=== PATIENT | male | born 1970 | race Caucasian/White ===

== ENCOUNTER 2020-03-22 10:20 | Inpatient (IN) | payer SELFPAY ==
[2020-03-22] MEDS ORDERED: PIPERACILLIN/TAZOBACTAM 3.375 GM VIAL IV ONE (11:54)
[2020-03-22] MEDS ORDERED: VANCOMYCIN HCL INJ 1000 MG VIAL IV ONE (11:54)
[2020-03-22] MEDS ORDERED: NORMAL SALINE 1000 ML 1,000 ML IV ONE ×2 (11:54→13:13)
[2020-03-22 12:34] LABS: ABSOLUTE BASOPHILS # (AUTO) 0.1 10^3/uL (0.0-0.2); ABSOLUTE EOSINOPHILS # (AUTO) 0.1 10^3/uL (0.0-0.6); ABSOLUTE LYMPHOCYTES (AUTO) 1.4 10^3/uL (0.5-4.7); ABSOLUTE MONOCYTES (AUTO) 1.6 10^3/uL (0.1-1.4); ABSOLUTE NEUT (AUTO) 12.7 10^3/uL (1.7-8.2); BASOPHILS % (AUTO) 0.6 % (0-2); EOSINOPHILS % (AUTO) 0.4 % (0-6); HEMATOCRIT 49.5 % (37.9-51.0); HEMOGLOBIN 16.6 g/dL (13.5-17.0); MEAN CORPUSCULAR HGB CONC 33.6 g/dL (32.0-36.0); MEAN CORPUSCULAR VOLUME 89 fl (80-97); MONOCYTES % (AUTO) 9.8 % (3-13); PLATELET COUNT 232 10^3/uL (150-450); RED BLOOD COUNT 5.54 10^6/uL (4.35-5.55); RED CELL DISTRIBUTION WIDTH 13.1 % (11.5-14.0); SEGMENTED NEUTROPHILS % (AUTO) 80.2 % (42-78); TOTAL CELLS COUNTED % (AUTO) 100 %; WHITE BLOOD COUNT 15.9 10^3/uL (4.0-10.5)
--- NOTE | 2020-03-22 12:40 | RADIOLOGY REPORT (SQ) ---
EXAM DESCRIPTION: FOOT RIGHT COMPLETE IMAGES COMPLETED DATE/TIME: 03/22/2020 12:22 pm REASON FOR STUDY: stepped on nail/pain COMPARISON: None. NUMBER OF VIEWS: Three views. TECHNIQUE: AP, lateral and oblique radiographic images acquired of the right foot. LIMITATIONS: None. FINDINGS: MINERALIZATION: Normal. BONES: No acute fracture or dislocation. No worrisome bone lesions. JOINTS: No effusions. SOFT TISSUES: There is some air in the soft tissues in the lateral aspect of the foot both on the bud ntar and dorsal aspects. OTHER: No other significant finding. IMPRESSION: Soft tissue air concerning for infection with a gas producing organism. TECHNICAL DOCUMENTATION: JOB ID: [id number] 2010 [employer]- All Rights Reserved Reading location - IP/workstation name: [email or web address]
[2020-03-22] MEDS ORDERED: ACETAMINOPHEN 325 MG TABLET PO ONE (12:48)
[2020-03-22 13:02] LABS: ALBUMIN 3.9 g/dL (3.5-5.0); ALKALINE PHOSPHATASE 85 U/L (38-126); ANION GAP 13 (5-19); ASPARTATE AMINO TRANSFERASE 20 U/L (17-59); BILIRUBIN,DIRECT 0.5 mg/dL (0.0-0.4); BILIRUBIN,TOTAL 1.1 mg/dL (0.2-1.3); BLOOD UREA NITROGEN 14 mg/dL (7-20); CALCIUM 8.9 mg/dL (8.4-10.2); CARBON DIOXIDE 26 mmol/L (22-30); CHLORIDE 91 mmol/L (98-107); GLUCOSE 376 mg/dL (75-110); POTASSIUM 4.8 mmol/L (3.6-5.0); TOTAL PROTEIN 6.7 g/dL (6.3-8.2)
[2020-03-22] MEDS ORDERED: INSULIN REG, HUMAN 100 UNIT/ML 3 ML VIAL (PYX) IV ONE (13:09)
--- NOTE | 2020-03-22 13:21 | ER Document Report ---
ED Extremity Problem, Lower - General Chief Complaint: Puncture Wound to Foot Stated Complaint: LEG PAIN Time Seen by Provider: 03/22/20 11:48 Mode of Arrival: Ambulatory Information source: Patient - HPI Notes: Patient presents complaint of right foot pain. Patient states that he stepped on a nail approximately 4 days ago. Since that time the foot has become more swollen, more red, and more tender. He states the pain is moderate and throbbing. Is constant. Is worse when he puts pressure on it better when he does not. It does radiate up his right foot. He has not appreciated any fevers. No other significant injuries. He states he has been told that he is a "prediabetic" but does not take any medication for this. - Related Data Allergies/Adverse Reactions: No Known Allergies Allergy (Unverified 03/22/20 12:56) Home Medications: ... Past Medical History - General Information source: Patient - Social History Smoking Status: Former Smoker Chew tobacco use (# tins/day): No Frequency of alcohol use: None Drug Abuse: None Family History: Reviewed & Not Pertinent Patient has homicidal ideation: No Review of Systems - Review of Systems Cardiovascular: denies: Chest pain, Palpitations Gastrointestinal: denies: Abdominal pain, Vomiting Genitourinary: denies: Burning, Dysuria -: Yes All other systems reviewed and negative Physical Exam - Vital signs Vitals: Temp Pulse Resp BP Pulse Ox 98.4 F 116 H 20 162/94 H 97 03/22/20 10:26 03/22/20 10:26 03/22/20 10:26 03/22/20 10:26 03/22/20 10:26 Interpretation: Hypertensive, Tachycardic - General General appearance: Appears well, Alert - HEENT Head: Normocephalic, Atraumatic Eyes: Normal Pupils: PERRL - Respiratory Respiratory status: No respiratory distress Chest status: Nontender Breath sounds: Normal Chest palpation: Normal - Cardiovascular Rhythm: Tachycardia Heart sounds: Normal auscultation Murmur: No - Abdominal Inspection: Normal Distension: No distension Bowel sounds: Normal Tenderness: Nontender Organomegaly: No organomegaly - Back Back: Normal, Nontender - Extremities General upper extremity: Normal inspection, Nontender, Normal color, Normal ROM, Normal temperature General lower extremity: Other - Patient's right foot is swollen red tender and indurated. He is got an obvious puncture wound to the lateral aspect of the sole of the foot. Patient has limited range of motion of the midfoot and ankle secondary to pain.. No: Perez's sign - Neurological Neuro grossly intact: Yes Cognition: Normal Orientation: AAOx4 [place] Coma Scale Eye Opening: Spontaneous Isaiah Coma Scale Verbal: Oriented [place] Coma Scale Motor: Obeys Commands [place] Coma Scale Total: 15 Speech: Normal Motor strength normal: LUE, RUE, LLE, RLE Sensory: Normal - Psychological Associated symptoms: Normal affect, Normal mood - Skin Skin Temperature: Warm Skin Moisture: Dry Skin Color: Erythema Course - Re-evaluation Re-evalutation: 03/22/20 13:14 Patient presents after stepping on a nail. He has an obvious infection of the foot with some gas in the tissues. It is unclear if this gas is secondary to the nail penetrating the tissues or if he has a gas-forming organism. Nevertheless he has received tetanus he is also received antibiotics. He is receiving fluids and insulin for his elevated blood sugar as well. I have spoken with the surgeon who is coming to evaluate the patient in the emergency department. - Vital Signs Vital signs: Temp Pulse Resp BP Pulse Ox 98.4 F 116 H 20 162/94 H 97 03/22/20 10:26 03/22/20 10:26 03/22/20 10:26 03/22/20 10:26 03/22/20 10:26 - Laboratory Result Diagrams: 03/22/20 12:15 03/22/20 12:15 Laboratory results interpreted by me: 03/22/20 03/22/20 12:15 12:15 WBC 15.9 H Lymph % (Auto) 9.0 L Absolute Neuts (auto) 12.7 H Absolute Monos (auto) 1.6 H Seg Neutrophils % 80.2 H Sodium 130.2 L Chloride 91 L Glucose 376 H Direct Bilirubin 0.5 H - Diagnostic Test Radiology reviewed: Image reviewed, Reports reviewed Discharge - Discharge Clinical Impression: Hyperglycemia Puncture wound of right foot with complication Qualifiers: Encounter type: initial encounter Qualified Code(s): S91.331A - Puncture wound without foreign body, right foot, initial encounter Condition: Serious Disposition: ADMITTED INPATIENT Admitting Provider: Surgicalist Unit Admitted: OR
[2020-03-22] MEDS ORDERED: FENTANYL CITRATE INJ/PF 100 MCG/2 ML AMPUL ONE (13:50)
[2020-03-22] MEDS ORDERED: MIDAZOLAM 2 MG/2 ML INJ ONE (13:50)
[2020-03-22] MEDS ORDERED: DEXMEDETOMIDINE INJ 80 MCG/20 ML VIAL IV ONE (13:50)
[2020-03-22] MEDS ORDERED: ONDANSETRON HCL INJ/PF 4 MG/2 ML SDV ONE (13:50)
[2020-03-22] MEDS ORDERED: KETAMINE HCL INJ 500 MG/10 ML VIAL ONE (13:50)
[2020-03-22] MEDS ORDERED: PROPOFOL INJ 200 MG/20 ML VIAL IV ONE (13:50)
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
--- NOTE | 2020-03-22 14:29 | RADIOLOGY REPORT (SQ) ---
EXAM DESCRIPTION: CT RT LOWER EXTREMITY WITH IMAGES COMPLETED DATE/TIME: 03/22/2020 2:06 pm REASON FOR STUDY: infection foot/leg COMPARISON: None. TECHNIQUE: Axial imaging performed through the Right foot with reformatted coronal and sagittal imaging windowed for bone and soft tissues. Images saved to PAC S. 3D IMAGING: Were 3D images as MIP, SSD, or volume rendering performed at the work station? No LIMITATIONS: None. FINDINGS: SOFT TISSUES: Gas in the soft tissues between the 4th and 5th metatarsal heads. Gas exten ds from the plantar surface to the dorsal surface. No organized gas fluid collection. BONY STRUCTURES: No active periosteal reaction or abscess. MINERALIZATION: Normal. OTHER: No other significant finding. IMPRESSION: Deep-seated wound infection without evidence of organized abscess or osteomyelitis. Reading location - IP/workstation name: [email or web address]
[2020-03-22] MEDS ORDERED: BUPIVACAINE HCL 0.25 % INJ/PF (2.5 MG/1 ML) 30 ML VIAL ONE (14:41)
[2020-03-22] MEDS ORDERED: LIDOCAINE 1% INJ-PF (10 MG/ML) 30 ML SDV ONE (14:41)
[2020-03-22] MEDS ORDERED: MORPHINE SULFATE 10 MG/ML INJ IV PRN (15:36)
[2020-03-22] MEDS ORDERED: FENTANYL CITRATE INJ/PF 100 MCG/2 ML AMPUL IV PRN ×3 (15:36)
[2020-03-22] MEDS ORDERED: ONDANSETRON HCL INJ/PF 4 MG/2 ML SDV IV PRN ×2 (15:36→15:40)
[2020-03-22] MEDS ORDERED: PROMETHAZINE HCL INJ 25 MG/1 ML VIAL IV PRN ×2 (15:36)
[2020-03-22] MEDS ORDERED: MEPERIDINE HCL/PF INJ 25 MG/1 ML DISP.SYRIN IV PRN (15:36)
[2020-03-22] MEDS ORDERED: DIPHENHYDRAMINE HCL 50 MG/ML VIAL IV PRN (15:36)
[2020-03-22] MEDS ORDERED: OXYCODONE-ACETAMINOPHEN 5-325 MG TABLET PO PRN ×3 (15:36→15:40)
[2020-03-22] MEDS ORDERED: MAG HYDROX/AL HYDROX/SIMETH SUSP 30 ML UDCUP PO PRN ×2 (15:40→17:43)
[2020-03-22] MEDS ORDERED: SILVER SULFADIAZINE 1% CREAM 25 GM ONE (15:44)
[2020-03-22] MEDS ORDERED: NORMAL SALINE 1000 ML 1,000 ML IV PRN ×3 (15:55→17:31)
[2020-03-22] MEDS ORDERED: DEXTROSE 50%-WATER 25 GM/50 ML DISP.SYRIN IV PRN ×2 (15:56)
[2020-03-22] MEDS ORDERED: DEXTROSE 40% GEL 15 GM TUBE PO PRN ×2 (15:56)
[2020-03-22] MEDS ORDERED: GLUCAGON,HUMAN RECOMB 1 MG INJ IM PRN (15:56)
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
--- NOTE | 2020-03-22 16:18 | Operative Report ---
Operative Report DATE OF SURGERY: 03/22/20 PREOPERATIVE DIAGNOSIS: Right foot gas gangrene; right foot sharp injury POSTOPERATIVE DIAGNOSIS: Same OPERATION: Wide debridement right foot with drain placement x2 SURGEON: CRISTINA MORENO ANESTHESIA: LMAC - 40 mL's of 0.5% lidocaine and 0.25% Marcaine TISSUE REMOVED OR ALTERED: Deep soft tissue right foot COMPLICATIONS: None ESTIMATED BLOOD LOSS: 10 mL's INTRAOPERATIVE FINDINGS: Dorsal right foot skin flaps viable, viable foot muscles of the third / fourth tarsa PROCEDURE: The procedure was done in the operating room, the patient was placed in a supine position, the entire right foot and right leg where prepped and draped in usual fashion. A longitudinal line was outlined with a surgical marker on the dorsal lateral aspect in between the fourth and fifth tarsal bones for a length of approximately 10 cm. A segment of skin was excised along the skin markings with a #15 blade and sent for culture. Serous fluid was obtained. This was sent for aerobic anaerobic culture and Gram stain. After this, a finger was inserted inside the wound and the medial and lateral flaps of the dorsal wound were elevated. The underlying tissue appeared to be pink, viable, without odor. The muscle fascia overlying the third and fourth tarsal bones was longitudinally opened with Bovie and the space was entered hemostat. No fluid was obtained after this. The musculature of the foot appeared to be pink and viable. The nail entry point was identified on the plantar surface and a core of tissue measuring 1/2 inch in diameter was excised around the entry point of the nail, ended deep in the foot, and sent for culture. A hemostat was inserted through this monitor opening and advanced to main dorsal foot opening. 1/2 inch Queta drain was threaded through this path and tied to itself; a second Queta drain was inserted through the plantar surface opening and was pointed more proximally on the dorsal aspect of the foot. Following this, the abscess cavity was irrigated with 3 L of normal saline via jet lavage. Local bleeders were cauterized. The [place] drain loop ends where tied to themselves with a 2-0 silk suture. The abscess cavity was packed with 1 inch inch Geovanny strip soaked in Silvadene; the plantar surface opening was packed similarly. Both packed areas were covered with dry 4 x 4's, ABDs, Kerlix roll, and Idris bandage. The patient tolerated procedure well and transferred to the recovery room in satisf actory conditions.
[2020-03-22] MEDS ORDERED: ACETAMINOPHEN 325 MG TABLET PO PRN ×2 (17:29→17:31)
[2020-03-22] MEDS: CLINDAMYCIN 900 MG/D5W RTU 900 MG/50 ML RTUPB IV SCH ×2 (17:43→20:02)
[2020-03-22] MEDS: FAMOTIDINE INJ/PF 20 MG/2 ML SDV IV SCH ×2 (17:48→21:15)
[2020-03-22] MEDS: OXYCODONE HCL IR 5 MG TABLET PO PRN (18:11)
[2020-03-22] MEDS: INSULIN LISPRO 100 UNIT/ML 3 ML VIAL SUBCUT SCH ×2 (18:28→22:33)
[2020-03-22] MEDS: ACETAMINOPHEN 1,000 MG/100 ML RTUPB IV SCH (18:28)
[2020-03-22] MEDS: PIPERACILLIN SODIUM/TAZOBACTAM 4.5 GM in NORMAL SALINE 100 ML IV SCH (18:44)
[2020-03-22] MEDS: VANCOMYCIN HCL 1,500 MG in DEXTROSE 5%-WATER 250 ML IV SCH (21:20)
[2020-03-22] MEDS ORDERED: FAMOTIDINE 20 MG TABLET PO SCH (22:00)
[2020-03-22] MEDS ORDERED: CEFEPIME 2 GM/D5W RTU 2 GM/50 ML RTUPB IV SCH (22:00)
[2020-03-22] MEDS: MORPHINE SULFATE 10 MG/ML INJ IV PRN (23:01)
[2020-03-23] MEDS: ACETAMINOPHEN 1,000 MG/100 ML RTUPB IV SCH ×3 (00:49→12:19)
[2020-03-23] MEDS ORDERED: VANCOMYCIN HCL INJ 500 MG VIAL IV ONE (01:00)
[2020-03-23] MEDS: CLINDAMYCIN 900 MG/D5W RTU 900 MG/50 ML RTUPB IV SCH ×3 (02:14→18:36)
[2020-03-23] MEDS: MORPHINE SULFATE 10 MG/ML INJ IV PRN ×2 (02:20→22:33)
[2020-03-23] MEDS: PIPERACILLIN SODIUM/TAZOBACTAM 4.5 GM in NORMAL SALINE 100 ML IV SCH ×5 (02:39→17:17)
[2020-03-23 05:12] LABS: ABSOLUTE EOSINOPHILS # (AUTO) 0.1 10^3/uL (0.0-0.6); ABSOLUTE LYMPHOCYTES (AUTO) 2.3 10^3/uL (0.5-4.7); ABSOLUTE MONOCYTES (AUTO) 1.9 10^3/uL (0.1-1.4); ABSOLUTE NEUT (AUTO) 10.9 10^3/uL (1.7-8.2); BASOPHILS % (AUTO) 0.3 % (0-2); EOSINOPHILS % (AUTO) 0.6 % (0-6); HEMATOCRIT 43.8 % (37.9-51.0); HEMOGLOBIN 14.9 g/dL (13.5-17.0); LYMPHOCYTES % (AUTO) 15.3 % (13-45); MEAN CORPUSCULAR VOLUME 88 fl (80-97); MONOCYTES % (AUTO) 12.4 % (3-13); PLATELET COUNT 219 10^3/uL (150-450); RED BLOOD COUNT 4.95 10^6/uL (4.35-5.55); RED CELL DISTRIBUTION WIDTH 12.8 % (11.5-14.0); SEGMENTED NEUTROPHILS % (AUTO) 71.4 % (42-78); TOTAL CELLS COUNTED % (AUTO) 100 %; WHITE BLOOD COUNT 15.2 10^3/uL (4.0-10.5)
[2020-03-23 05:16] LABS: INTERNATIONAL RATION (INR) 1.08; PROTHROMBIN TIME 14.2 SEC (11.4-15.4)
[2020-03-23 05:17] LABS: PARTIAL THROMBOPLASTIN TIME 29.3 SEC (23.5-35.8)
[2020-03-23 05:44] LABS: CHOLESTEROL 169.09 mg/dL (0-200); TRIGLYCERIDES 114 mg/dL (<150)
[2020-03-23 05:54] LABS: DIRECT LDL 113 mg/dL (<100)
[2020-03-23 06:04] LABS: ANION GAP 12 (5-19); BLOOD UREA NITROGEN 9 mg/dL (7-20); CALCIUM 8.4 mg/dL (8.4-10.2); CARBON DIOXIDE 24 mmol/L (22-30); CHLORIDE 96 mmol/L (98-107); CREATINE KINASE 46 U/L (55-170); GLUCOSE 222 mg/dL (75-110); POTASSIUM 3.9 mmol/L (3.6-5.0)
[2020-03-23] MEDS: VANCOMYCIN HCL 1,500 MG in DEXTROSE 5%-WATER 250 ML IV SCH ×3 (07:48→22:25)
--- NOTE | 2020-03-23 08:23 | PDOC PROGRESS REPORT ---
Subjective Progress Note for:: 03/23/20 Subjective:: Patient comfortable, denies right foot pain, reports to be able to wiggle all right foot toes Reason For Visit: PUNCTURE WOUND OF RIGHT FOOT WITH COMPLICATION Physical Exam Vital Signs: Temp Pulse Resp BP Pulse Ox 99.2 F 95 18 111/75 93 03/23/20 07:32 03/23/20 07:32 03/23/20 07:32 03/23/20 07:32 03/23/20 07:32 Intake & Output 03/22/20 03/23/20 03/24/20 06:59 06:59 06:59 Intake Total 2400 200 Output Total 1510 Balance 890 200 Weight 130.1 kg General appearance: PRESENT: no acute distress, obese Extremities exam: PRESENT: other - Right foot = covered with dressings clean, dry, and intact; no odor Results Laboratory Results: 03/23/20 04:37 03/23/20 04:37 03/22/20 03/22/20 03/22/20 12:15 12:15 19:30 WBC 15.9 H RBC 5.54 Hgb 16.6 Hct 49.5 MCV 89 MCH 30.0 MCHC 33.6 RDW 13.1 Plt Count 232 Seg Neutrophils % 80.2 H Sodium 130.2 L Potassium 4.8 Chloride 91 L Carbon Dioxide 26 Anion Gap 13 BUN 14 Creatinine 0.65 Est GFR ( Amer) > 60 Glucose 376 H Lactic Acid 1.1 Calcium 8.9 Magnesium Total Bilirubin 1.1 AST 20 Alkaline Phosphatase 85 Total Protein 6.7 Albumin 3.9 Triglycerides Cholesterol LDL Cholesterol Direct VLDL Cholesterol HDL Cholesterol 03/23/20 03/23/20 04:37 04:37 WBC 15.2 H RBC 4.95 Hgb 14.9 Hct 43.8 MCV 88 MCH 30.0 MCHC 34.0 RDW 12.8 Plt Count 219 Seg Neutrophils % 71.4 Sodium 131.6 L Potassium 3.9 Chloride 96 L Carbon Dioxide 24 Anion Gap 12 BUN 9 Creatinine 0.51 L Est GFR ( Amer) > 60 Glucose 222 H Lactic Acid Calcium 8.4 Magnesium 2.0 Total Bilirubin AST Alkaline Phosphatase Total Protein Albumin Triglycerides 114 Cholesterol 169.09 LDL Cholesterol Direct 113 H VLDL Cholesterol 23.0 HDL Cholesterol 38 L 03/23/20 04:37 Creatine Kinase 46 L Impressions: Foot X-Ray 03/22/20 11:54 IMPRESSION: Soft tissue air concerning for infection with a gas producing organism. Lower Extremity CT 03/22/20 13:26 IMPRESSION: Deep-seated wound infection without evidence of organized abscess or osteomyelitis. Assessment & Plan - Diagnosis (1) Gas gangrene Is this a current diagnosis for this admission?: Yes (2) Hyperglycemia Is this a current diagnosis for this admission?: Yes (3) Puncture wound of right foot with complication Qualifiers: Encounter type: initial encounter Qualified Code(s): S91.331A - Puncture wound without foreign body, right foot, initial encounter - Time Anticipated Discharge Disposition: Home, Self Care Anticipated Discharge Timeframe: When clinically ready - Plan Summary Plan Summary: Assessment: Postoperative day #1 following debridement with drain placement to the right foot Gas gangrene right foot following puncture wound to the plantar surface by days prior to presentation to the hospital Persistent leukocytosis 15,000 Low-grade temperature 99.2. Cultures pending Right foot exam = dressing clean dry intact, patient able to wiggle all toes Plan: Plan right foot wound second look exploration with possible debridement today Seizure, risks, benefits, complications, including infection, bleeding, some motor or sensory function, loss of limb, is been discussed with the patient, he understands all the above and desires to proceed The possibility of losing part, most, or the entire right foot has been discussed with the patient; he understands the issue.
[2020-03-23] MEDS: INSULIN LISPRO 100 UNIT/ML 3 ML VIAL SUBCUT SCH ×4 (08:28→22:24)
[2020-03-23] MEDS ORDERED: FENTANYL CITRATE INJ/PF 100 MCG/2 ML AMPUL ONE ×2 (09:13→11:00)
[2020-03-23] MEDS ORDERED: MIDAZOLAM 2 MG/2 ML INJ ONE (09:14)
[2020-03-23] MEDS ORDERED: PROPOFOL INJ 200 MG/20 ML VIAL IV ONE ×2 (09:14→10:56)
[2020-03-23] MEDS ORDERED: ONDANSETRON HCL INJ/PF 4 MG/2 ML SDV ONE (09:16)
[2020-03-23] MEDS ORDERED: SILVER SULFADIAZINE 1% CREAM 25 GM ONE (09:29)
[2020-03-23] MEDS ORDERED: ENOXAPARIN SODIUM INJ 40 MG/0.4 ML DISP.SYRIN SUBCUT SCH (10:00)
[2020-03-23] MEDS ORDERED: MEPERIDINE HCL/PF INJ 25 MG/1 ML DISP.SYRIN IV PRN (10:22)
[2020-03-23] MEDS ORDERED: FENTANYL CITRATE INJ/PF 100 MCG/2 ML AMPUL IV PRN ×2 (10:22)
[2020-03-23] MEDS ORDERED: DIPHENHYDRAMINE HCL 50 MG/ML VIAL IV PRN (10:22)
[2020-03-23] MEDS ORDERED: PROMETHAZINE HCL INJ 25 MG/1 ML VIAL IV PRN (10:22)
[2020-03-23] MEDS ORDERED: MORPHINE SULFATE 10 MG/ML INJ IV PRN (10:22)
[2020-03-23] MEDS: FENTANYL CITRATE INJ/PF 100 MCG/2 ML AMPUL IV PRN ×2 (11:00→11:05)
--- NOTE | 2020-03-23 11:17 | EKG REPORT ---
SEVERITY:- ABNORMAL ECG - SINUS TACHYCARDIA RBBB AND LPFB : Confirmed by: Brisa Del Toro MD 23-Mar-2020 11:16:02
--- NOTE | 2020-03-23 11:40 | Operative Report ---
Operative Report DATE OF SURGERY: 03/23/20 PREOPERATIVE DIAGNOSIS: Status post penetrating trauma right foot; gas gangrene right foot; status post debridement of skin and subcutaneous tissue right foot POSTOPERATIVE DIAGNOSIS: Same; ischemic fourth and fifth lumbrical muscles right foot; viable third lumbrical muscle right foot OPERATION: Full-thickness debridement of right foot dorsal skin; debridement of fascia and third and fourth lumbrical muscles right foot; placement of wound VAC SURGEON: CRISTINA MORENO ANESTHESIA: LMAC TISSUE REMOVED OR ALTERED: Right foot dorsal skin; specimens of third fourth and fifth lumbrical muscles right foot; muscle fascia right foot dorsal aspect ESTIMATED BLOOD LOSS: 10 mL INTRAOPERATIVE FINDINGS: Necrosis of wound skin flaps circumferentially to the wound; necrosis of muscle fascia dorsal aspect right foot; viable third lumbrical muscle belly right foot; necrosis fourth and fifth lumbrical muscle belly PROCEDURE: The procedure was done in the operating room, the patient was placed in supine position, IV sedation by LMAC provided by the assistant professor of art, the right foot and leg were prepped draped in usual fashion. The [place] drain placed yesterday were removed. On initial inspection, the dorsal aspect of foot appear covered by necrotic subcutaneous fascia as well as the fourth and fifth lumbrical muscles appear to be dusky. Half an inch inch to 1 inch of the skin edges of the circular shaped surgical wound created during the previous surgery was dusky. This skin was sharply excised until good bleeding tissue was obtained. Further inspection of the wound revealed necrosis of the underlying fascia which was sharply debrided throughout the entire surgical field which now measures approximately 12 x 10 cm, located on the dorsal lateral aspect of the foot, overlying the third through fifth metatarsal bones. After this debridement, the underlying lumbri emily muscles were inspected: the fourth and fifth lumbrical muscles were dusky; these was debrided and specimens were sent to pathology test muscle viability. Examination of the third lumbrical muscle revealed a pink muscle belly and a sample was sent to pathology as well. This was found to be viable. The muscle specimens of the fourth and fifth lumbrical muscles were found to be necrotic by the pathologist. Local bleeders were cauterized, jet lavage with 3 L normal saline of the surgical field was performed. After this, a laureano wound VAC sponge was cut to size, placed in the surgical field and followed by a large Tegaderm was placed on top of it to create a seal. The Tegaderm on top of the sponge was open and the vacuum cup was placed on top of the Tegaderm and connected to the wound VAC machine. Good vacuum seal was obtained with use 125 mmHg negative pressure. The wound VAC tubing was secured to the skin with an Idris bandage. The patient
[2020-03-23] MEDS: FAMOTIDINE INJ/PF 20 MG/2 ML SDV IV SCH ×2 (12:19→22:24)
[2020-03-23] MEDS: DOCUSATE SODIUM 100 MG CAPSULE PO SCH (12:20)
--- NOTE | 2020-03-23 14:55 | PDOC PROGRESS REPORT ---
Subjective Progress Note for:: 03/23/20 Subjective:: Patient denies any fever or chills. Still having throbbing pain in his right leg. Also has a headache. Patient states that he would like to avoid being on insulin and has declined insulin therapy. Reason For Visit: PUNCTURE WOUND OF RIGHT FOOT WITH COMPLICATION Physical Exam Vital Signs: Temp Pulse Resp BP Pulse Ox 98.6 F 97 16 152/75 H 96 03/23/20 14:00 03/23/20 14:00 03/23/20 14:00 03/23/20 14:00 03/23/20 14:00 Intake & Output 03/22/20 03/23/20 03/24/20 06:59 06:59 06:59 Intake Total 2400 4050 Output Total 1510 5 Balance 890 4045 Weight 130.1 kg General appearance: PRESENT: no acute distress, cooperative Neck exam: ABSENT: JVD Respiratory exam: PRESENT: clear to auscultation so, symmetrical, unlabored. ABSENT: tachypnea, wheezes Cardiovascular exam: PRESENT: RRR, +S1, +S2. ABSENT: tachycardia GI/Abdominal exam: PRESENT: soft. ABSENT: rebound, rigid, tenderness Extremities exam: PRESENT: other - Right lower extremity in Idris wraps and dressing with connected to wound VAC. Significant swelling involving the right foot. Neurological exam: PRESENT: alert, awake, oriented to person, oriented to place, oriented to time Results Laboratory Results: 03/23/20 04:37 03/23/20 04:37 03/22/20 03/23/20 03/23/20 19:30 04:37 04:37 WBC 15.2 H RBC 4.95 Hgb 14.9 Hct 43.8 MCV 88 MCH 30.0 MCHC 34.0 RDW 12.8 Plt Count 219 Seg Neutrophils % 71.4 Sodium 131.6 L Potassium 3.9 Chloride 96 L Carbon Dioxide 24 Anion Gap 12 BUN 9 Creatinine 0.51 L Est GFR ( Amer) > 60 Glucose 222 H Lactic Acid 1.1 Calcium 8.4 Magnesium 2.0 Triglycerides 114 Cholesterol 169.09 LDL Cholesterol Direct 113 H VLDL Cholesterol 23.0 HDL Cholesterol 38 L 03/23/20 04:37 Creatine Kinase 46 L Impressions: Foot X-Ray 03/22/20 11:54 IMPRESSION: Soft tissue air concerning for infection with a gas producing organism. Lower Extremity CT 03/22/20 13:26 IMPRESSION: Deep-seated wound infection without evidence of organized abscess or osteomyelitis. Assessment and Plan - Diagnosis (1) Necrotizing fasciitis of lower leg Is this a current diagnosis for this admission?: Yes Plan: Secondary to trauma from stepping on a nail Taken to the OR again today for further debridement and placement of wound VAC. Deep wound cultures are growing gram-negative luis daniel Discussed case with Dr. Locke who recommends triple antibiotic therapy for now with vancomycin Zosyn and clindamycin Pain control with IV and p.o. meds as needed Plan for OR again tomorrow morning (2) Hyperglycemia due to diabetes mellitus Is this a current diagnosis for this admission?: Yes Plan: New onset diabetes mellitus likely type II. Hemoglobin A1c is 13. I discussed with patient that he needs to be on insulin for proper control of diabetes as his hemoglobin A1c is way above 9.5. However patient declines insulin. As such, I will put patient on metformin and glimepiride. Continue Accu-Cheks and sliding scale. Counseled by superintendent automotive (3) Elevated blood pressure reading Is this a current diagnosis for this admission?: Yes Plan: We will monitor blood pressure closely. Denies history of hypertension, it could be due to pain. Pain control as well. (4) Morbid obesity with BMI of 40.0-44.9, adult Is this a current diagnosis for this admission?: Yes Plan: Dietitian consulted for weight reduction education. Dyslipidemia-we will start patient on atorvastatin especially given calculated ASCVD 10-year risk of 7.6% and diabetes - Time Time Spent with patient: 15-24 minutes Anticipated Discharge Disposition: Home, Self Care Anticipated Discharge Timeframe: 4-5 days
[2020-03-23] MEDS: METFORMIN HCL 500 MG TABLET PO SCH (17:21)
[2020-03-23] MEDS ORDERED: ACETAMINOPHEN 1,000 MG/100 ML RTUPB IV PRN (17:39)
[2020-03-23] MEDS: GLIMEPIRIDE 1 MG TABLET PO SCH (18:28)
[2020-03-23] MEDS ORDERED: ENOXAPARIN SODIUM INJ 40 MG/0.4 ML DISP.SYRIN SUBCUT ONE (22:00)
[2020-03-23] MEDS: ATORVASTATIN CALCIUM 40 MG TABLET PO SCH (22:24)
[2020-03-23 22:49] LABS: VANCOMYCIN,TROUGH 12.9 ug/mL (5.0-20.0)
[2020-03-24] MEDS: PIPERACILLIN SODIUM/TAZOBACTAM 4.5 GM in NORMAL SALINE 100 ML IV SCH ×4 (00:33→17:29)
[2020-03-24] MEDS: CLINDAMYCIN 900 MG/D5W RTU 900 MG/50 ML RTUPB IV SCH ×2 (03:34→11:54)
[2020-03-24 05:52] LABS: ABSOLUTE EOSINOPHILS # (AUTO) 0.1 10^3/uL (0.0-0.6); ABSOLUTE LYMPHOCYTES (AUTO) 1.7 10^3/uL (0.5-4.7); ABSOLUTE MONOCYTES (AUTO) 1.7 10^3/uL (0.1-1.4); ABSOLUTE NEUT (AUTO) 7.6 10^3/uL (1.7-8.2); BASOPHILS % (AUTO) 0.4 % (0-2); EOSINOPHILS % (AUTO) 1.2 % (0-6); HEMATOCRIT 40.8 % (37.9-51.0); HEMOGLOBIN 13.9 g/dL (13.5-17.0); LYMPHOCYTES % (AUTO) 15.3 % (13-45); MEAN CORPUSCULAR VOLUME 88 fl (80-97); MONOCYTES % (AUTO) 15.1 % (3-13); PLATELET COUNT 209 10^3/uL (150-450); RED BLOOD COUNT 4.62 10^6/uL (4.35-5.55); RED CELL DISTRIBUTION WIDTH 12.9 % (11.5-14.0); TOTAL CELLS COUNTED % (AUTO) 100 %; WHITE BLOOD COUNT 11.2 10^3/uL (4.0-10.5)
[2020-03-24] MEDS: MORPHINE SULFATE 10 MG/ML INJ IV PRN ×5 (05:59→22:26)
[2020-03-24 06:05] LABS: ANION GAP 12 (5-19); BLOOD UREA NITROGEN 12 mg/dL (7-20); CALCIUM 8.4 mg/dL (8.4-10.2); CARBON DIOXIDE 24 mmol/L (22-30); CHLORIDE 98 mmol/L (98-107); GLUCOSE 244 mg/dL (75-110); POTASSIUM 3.9 mmol/L (3.6-5.0)
[2020-03-24] MEDS: VANCOMYCIN HCL 1,500 MG in DEXTROSE 5%-WATER 250 ML IV SCH ×3 (08:03→22:38)
[2020-03-24] MEDS: INSULIN LISPRO 100 UNIT/ML 3 ML VIAL SUBCUT SCH ×4 (08:04→22:46)
[2020-03-24] MEDS ORDERED: FAMOTIDINE INJ/PF 20 MG/2 ML SDV IV ONE (08:45)
--- NOTE | 2020-03-24 10:32 | PDOC PROGRESS REPORT ---
Subjective Progress Note for:: 03/24/20 Reason For Visit: PUNCTURE WOUND OF RIGHT FOOT WITH COMPLICATION Patient having more pain, redness to the right foot. Remains on quadruple antibiotics, wound VAC therapy. Physical Exam Vital Signs: Temp Pulse Resp BP Pulse Ox 98.2 F 88 16 143/81 H 97 03/24/20 08:46 03/24/20 07:51 03/24/20 07:51 03/24/20 07:51 03/24/20 07:51 Intake & Output 03/23/20 03/24/20 03/25/20 06:59 06:59 06:59 Intake Total 2400 4900 Output Total 1510 1730 Balance 890 3170 Weight 130.1 kg 138 kg General appearance: PRESENT: mild distress Musculoskeletal exam: PRESENT: other - Right foot examined. There is cellulitis extending beyond the wound VAC sponge. Sponge removed. The open wound is fairly clean with some granulation tissue no foul smell or pus, however the skin, and immediate subcutaneous tissue remains edematous and erythematous and a circumferential fashion around the open wound. There is no extension to the ankle. Results Laboratory Results: 03/24/20 05:37 03/24/20 05:37 03/24/20 03/24/20 05:37 05:37 WBC 11.2 H RBC 4.62 Hgb 13.9 Hct 40.8 MCV 88 MCH 30.0 MCHC 34.0 RDW 12.9 Plt Count 209 Seg Neutrophils % 68.0 Sodium 133.7 L Potassium 3.9 Chloride 98 Carbon Dioxide 24 Anion Gap 12 BUN 12 Creatinine 0.82 Est GFR ( Amer) > 60 Glucose 244 H Calcium 8.4 Magnesium 2.0 03/23/20 04:37 Creatine Kinase 46 L Impressions: Foot X-Ray 03/22/20 11:54 IMPRESSION: Soft tissue air concerning for infection with a gas producing organism. Lower Extremity CT 03/22/20 13:26 IMPRESSION: Deep-seated wound infection without evidence of organized abscess or osteomyelitis. Assessment & Plan - Diagnosis (1) Puncture wound of right foot with complication Qualifiers: Encounter type: initial encounter Qualified Code(s): S91.331A - Puncture wound without foreign body, right foot, initial encounter Plan: Impression: Patient is postoperative day 2, 1 following serial debridements of the right foot for puncture wound in obese diabetic; complex wound growing Enterobacter cloaca on appropriate intravenous antibiotics; despite aggressive debridement, leg elevation intravenous antibiotics, patient has persisting infection as manifested by new erythema around the debridement site. Recommendations: 1. Discussed with patient, nursing staff the condition of the foot, that is incomplete resolution of sepsis despite very aggressive preventions over the last 48 hours. I would suggest holding off on further debridement this morning as the open wound is decompressed without pus, foul smell, and the bottom of the foot is not draining. 2. Nonetheless I am concerned this foot is far from recoverable and I described that to the patient. I told him we would continue local wound care, IV antibiotics and leg elevation today. I will reinspect the wound in 12 to 24 hours, and if no better, suggest we proceed with below the knee amputation 3. I discussed the above with nursing staff, and Dr. BOX - Time Time Spent: 30 to 50 Minutes Critical Time spent with patient: 15-24 minutes Medications reviewed and adjusted accordingly: Yes Anticipated Discharge Disposition: Home, Self Care Anticipated Discharge Timeframe: To be determined
[2020-03-24] MEDS ORDERED: DEXTROSE 50%-WATER 25 GM/50 ML DISP.SYRIN IV PRN ×2 (10:33)
[2020-03-24] MEDS ORDERED: DEXTROSE 40% GEL 15 GM TUBE PO PRN ×2 (10:33)
[2020-03-24] MEDS ORDERED: GLUCAGON,HUMAN RECOMB 1 MG INJ SUBCUT PRN (10:33)
[2020-03-24] MEDS: METFORMIN HCL 500 MG TABLET PO SCH ×2 (11:48→15:57)
[2020-03-24] MEDS: GLIMEPIRIDE 1 MG TABLET PO SCH (11:49)
[2020-03-24] MEDS: DOCUSATE SODIUM 100 MG CAPSULE PO SCH ×2 (11:50→17:29)
[2020-03-24] MEDS: OXYCODONE HCL IR 5 MG TABLET PO PRN (15:57)
--- NOTE | 2020-03-24 16:53 | PDOC PROGRESS REPORT ---
Subjective Progress Note for:: 03/24/20 Subjective:: Patient complains of some throbbing foot pain today. Otherwise in good spirits. Reason For Visit: PUNCTURE WOUND OF RIGHT FOOT WITH COMPLICATION Physical Exam Vital Signs: Temp Pulse Resp BP Pulse Ox 97.9 F 83 18 135/85 H 98 03/24/20 15:29 03/24/20 15:29 03/24/20 15:29 03/24/20 15:29 03/24/20 15:29 Intake & Output 03/23/20 03/24/20 03/25/20 06:59 06:59 06:59 Intake Total 2400 5050 650 Output Total 1510 1730 Balance 890 3320 650 Weight 130.1 kg 138 kg 138 kg General appearance: PRESENT: no acute distress, cooperative Neck exam: ABSENT: JVD Respiratory exam: PRESENT: symmetrical, unlabored. ABSENT: tachypnea, wheezes Cardiovascular exam: PRESENT: +S1, +S2 GI/Abdominal exam: PRESENT: soft. ABSENT: tenderness Extremities exam: PRESENT: other - Swelling of right foot. Drain and wound VAC Neurological exam: PRESENT: alert, awake, oriented to person, oriented to place, oriented to time Results Laboratory Results: 03/24/20 05:37 03/24/20 05:37 03/24/20 03/24/20 05:37 05:37 WBC 11.2 H RBC 4.62 Hgb 13.9 Hct 40.8 MCV 88 MCH 30.0 MCHC 34.0 RDW 12.9 Plt Count 209 Seg Neutrophils % 68.0 Sodium 133.7 L Potassium 3.9 Chloride 98 Carbon Dioxide 24 Anion Gap 12 BUN 12 Creatinine 0.82 Est GFR ( Amer) > 60 Glucose 244 H Calcium 8.4 Magnesium 2.0 03/23/20 04:37 Creatine Kinase 46 L Impressions: Foot X-Ray 03/22/20 11:54 IMPRESSION: Soft tissue air concerning for infection with a gas producing organism. Lower Extremity CT 03/22/20 13:26 IMPRESSION: Deep-seated wound infection without evidence of organized abscess or osteomyelitis. Assessment and Plan - Diagnosis (1) Necrotizing fasciitis of lower leg Is this a current diagnosis for this admission?: Yes Plan: Secondary to trauma from stepping on a nail Taken to the OR again today for further debridement and placement of wound VAC. Deep wound cultures are growing gram-negative luis daniel, Enterobacter bacillus species We will discontinue clindamycin at this point as he has been on this for over 48 hours now. Continue vancomycin and Zosyn. We will continue to follow cultures to full susceptibility report Pain control with IV and p.o. meds as needed Did not require OR today but possible plan for OR again tomorrow morning (2) Hyperglycemia due to diabetes mellitus Is this a current diagnosis for this admission?: Yes Plan: New onset diabetes mellitus likely type II. Hemoglobin A1c is 13. I discussed with patient that he needs to be on insulin for proper control of diabetes as his hemoglobin A1c is way above 9.5. However patient declines insulin. As such, I will put patient on metformin and glimepiride. Continue Accu-Cheks and sliding scale. Counseled by firer watertender (3) Elevated blood pressure reading Is this a current diagnosis for this admission?: Yes (4) Morbid obesity with BMI of 40.0-44.9, adult Is this a current diagnosis for this admission?: Yes - Time Time Spent with patient: Less than 15 minutes Anticipated Discharge Disposition: Home, Self Care Anticipated Discharge Timeframe: undetermined
[2020-03-24] MEDS: NORMAL SALINE 1000 ML 1,000 ML IV PRN (17:29)
[2020-03-24] MEDS: ATORVASTATIN CALCIUM 40 MG TABLET PO SCH (22:39)
[2020-03-24] MEDS: FAMOTIDINE INJ/PF 20 MG/2 ML SDV IV SCH (22:45)
[2020-03-25] MEDS: PIPERACILLIN SODIUM/TAZOBACTAM 4.5 GM in NORMAL SALINE 100 ML IV SCH ×5 (00:28→18:05)
[2020-03-25] MEDS: NORMAL SALINE 1000 ML 1,000 ML IV PRN ×2 (03:38→22:29)
[2020-03-25] MEDS: VANCOMYCIN HCL 1,500 MG in DEXTROSE 5%-WATER 250 ML IV SCH ×3 (05:02→22:27)
[2020-03-25] MEDS: ONDANSETRON HCL INJ/PF 4 MG/2 ML SDV IV PRN ×2 (05:12→15:40)
[2020-03-25] MEDS: MORPHINE SULFATE 10 MG/ML INJ IV PRN ×2 (05:19→12:42)
[2020-03-25 06:04] LABS: ABSOLUTE EOSINOPHILS # (AUTO) 0.2 10^3/uL (0.0-0.6); ABSOLUTE LYMPHOCYTES (AUTO) 1.4 10^3/uL (0.5-4.7); ABSOLUTE MONOCYTES (AUTO) 1.5 10^3/uL (0.1-1.4); ABSOLUTE NEUT (AUTO) 6.3 10^3/uL (1.7-8.2); BASOPHILS % (AUTO) 0.5 % (0-2); EOSINOPHILS % (AUTO) 2.3 % (0-6); HEMATOCRIT 39.1 % (37.9-51.0); HEMOGLOBIN 13.5 g/dL (13.5-17.0); LYMPHOCYTES % (AUTO) 15.3 % (13-45); MEAN CORPUSCULAR HEMOGLOBIN 30.2 pg (27.0-33.4); MEAN CORPUSCULAR HGB CONC 34.4 g/dL (32.0-36.0); MEAN CORPUSCULAR VOLUME 88 fl (80-97); MONOCYTES % (AUTO) 15.6 % (3-13); PLATELET COUNT 235 10^3/uL (150-450); RED BLOOD COUNT 4.46 10^6/uL (4.35-5.55); RED CELL DISTRIBUTION WIDTH 12.6 % (11.5-14.0); SEGMENTED NEUTROPHILS % (AUTO) 66.3 % (42-78); TOTAL CELLS COUNTED % (AUTO) 100 %; WHITE BLOOD COUNT 9.5 10^3/uL (4.0-10.5)
[2020-03-25 06:27] LABS: ANION GAP 9 (5-19); BLOOD UREA NITROGEN 14 mg/dL (7-20); CALCIUM 8.5 mg/dL (8.4-10.2); CARBON DIOXIDE 25 mmol/L (22-30); CHLORIDE 101 mmol/L (98-107); GLUCOSE 232 mg/dL (75-110); POTASSIUM 3.9 mmol/L (3.6-5.0)
[2020-03-25] MEDS: INSULIN LISPRO 100 UNIT/ML 3 ML VIAL SUBCUT SCH ×4 (08:21→22:30)
[2020-03-25] MEDS: GLIMEPIRIDE 1 MG TABLET PO SCH (08:55)
[2020-03-25] MEDS: METFORMIN HCL 500 MG TABLET PO SCH ×2 (08:55→18:04)
[2020-03-25] MEDS ORDERED: LIDOCAINE 1% INJ-PF (10 MG/ML) 30 ML SDV ONE (09:19)
[2020-03-25] MEDS ORDERED: PROPOFOL INJ 200 MG/20 ML VIAL IV ONE (09:30)
[2020-03-25] MEDS ORDERED: MIDAZOLAM 2 MG/2 ML INJ ONE ×3 (09:30→16:48)
[2020-03-25] MEDS ORDERED: ONDANSETRON HCL INJ/PF 4 MG/2 ML SDV ONE (09:30)
[2020-03-25] MEDS ORDERED: FENTANYL CITRATE INJ/PF 100 MCG/2 ML AMPUL ONE ×2 (09:30→16:49)
[2020-03-25] MEDS ORDERED: PROMETHAZINE HCL INJ 25 MG/1 ML VIAL IV PRN ×2 (10:32)
[2020-03-25] MEDS ORDERED: MORPHINE SULFATE 10 MG/ML INJ IV PRN (10:32)
[2020-03-25] MEDS ORDERED: MEPERIDINE HCL/PF INJ 25 MG/1 ML DISP.SYRIN IV PRN (10:32)
[2020-03-25] MEDS ORDERED: ONDANSETRON HCL INJ/PF 4 MG/2 ML SDV IV PRN (10:32)
[2020-03-25] MEDS ORDERED: DIPHENHYDRAMINE HCL 50 MG/ML VIAL IV PRN (10:32)
[2020-03-25] MEDS ORDERED: FENTANYL CITRATE INJ/PF 100 MCG/2 ML AMPUL IV PRN ×3 (10:32)
[2020-03-25] MEDS ORDERED: OXYCODONE-ACETAMINOPHEN 5-325 MG TABLET PO PRN ×2 (10:32)
--- NOTE | 2020-03-25 11:10 | PDOC PROGRESS REPORT ---
Subjective Progress Note for:: 03/25/20 Subjective:: Patient still complaining of pain right foot, worse, with inability to dorsiflex at the ankle. Reason For Visit: PUNCTURE WOUND OF RIGHT FOOT WITH COMPLICATION Open right foot wound Patient was examined approximately 9:00 AM March 25 Physical Exam Vital Signs: Temp Pulse Resp BP Pulse Ox 97.9 F 77 18 132/57 H 96 03/25/20 09:10 03/25/20 09:10 03/25/20 09:10 03/25/20 09:10 03/25/20 09:10 Intake & Output 03/24/20 03/25/20 03/26/20 06:59 06:59 06:59 Intake Total 5050 2350 Output Total 1730 1570 Balance 3320 780 Weight 138 kg 138.2 kg General appearance: PRESENT: mild distress Musculoskeletal exam: PRESENT: other - right foot dressing removed. There is extension of the erythema, more violaceous around the previous perimeter of red skin but now involving the instep of the foot, and lateral malleolus. Patient unable to dorsiflex or plantarflex at the ankle. Results Laboratory Results: 03/25/20 05:48 03/25/20 05:48 03/25/20 03/25/20 05:48 05:48 WBC 9.5 RBC 4.46 Hgb 13.5 Hct 39.1 MCV 88 MCH 30.2 MCHC 34.4 RDW 12.6 Plt Count 235 Seg Neutrophils % 66.3 Sodium 135.1 L Potassium 3.9 Chloride 101 Carbon Dioxide 25 Anion Gap 9 BUN 14 Creatinine 1.16 Est GFR ( Amer) > 60 Glucose 232 H Calcium 8.5 Magnesium 2.1 03/23/20 04:37 Creatine Kinase 46 L Impressions: Foot X-Ray 03/22/20 11:54 IMPRESSION: Soft tissue air concerning for infection with a gas producing organism. Lower Extremity CT 03/22/20 13:26 IMPRESSION: Deep-seated wound infection without evidence of organized abscess or osteomyelitis. Assessment & Plan - Diagnosis (1) Puncture wound of right foot with complication Qualifiers: Encounter type: initial encounter Qualified Code(s): S91.331A - Puncture wound without foreign body, right foot, initial encounter Is this a current diagnosis for this admission?: Yes Plan: Impression: Progressive a sending cellulitis of the right foot now involving ankle in 49-year-old obese diabetic white male with gram-negative sepsis following a puncture wound right foot, that is post serial right foot debridements. Plan: 1. I reviewed with patient the unfortunate reality that the infection, despite treatment with leg elevation, intravenous antibiotics, and serial foot debridements over the last 72 hours has progressed to involve the ankle. I have recommended that we proceed with a below the knee amputation, in a staged fashion, with the wound being left open today, and then likely closure in the next 24 to 72 hours depending upon the clinical course. 2. Patient expresses understanding agrees to proceed. We did discuss the mechanics of the operation, with my approach as described above. Also discussed eventual recovery, physical therapy, application of prosthesis etc. 3. We will set patient up for the planned procedure to day. He has been n.p.o. His COVID-19 is negative. (3) Hyperglycemia due to diabetes mellitus Is this a current diagnosis for this admission?: Yes (4) Morbid obesity with BMI of 40.0-44.9, adult Is this a current diagnosis for this admission?: Yes - Time Time Spent: 50 to 70 Minutes Critical Time spent with patient: Less than 15 minutes Medications reviewed and adjusted accordingly: Yes Anticipated Discharge Disposition: Home, Self Care Anticipated Discharge Timeframe: To be determined
[2020-03-25] MEDS: HYDROMORPHONE HCL INJ/PF 2 MG/ML AMPULE ONE ×4 (11:20→11:45)
--- NOTE | 2020-03-25 11:21 | Operative Report ---
Operative Report DATE OF SURGERY: 03/25/20 PREOPERATIVE DIAGNOSIS: 1. Aggressive right foot soft tissue and muscle infect ion status post serial debridements x2. 2. Morbid obesity. 3. Diabetes mellitus POSTOPERATIVE DIAGNOSIS: Same OPERATION: Right below the knee amputation, open SURGEON: LUCIEN SPRINGER ANESTHESIA: GA TISSUE REMOVED OR ALTERED: Right foot COMPLICATIONS: None ESTIMATED BLOOD LOSS: 200 cc INTRAOPERATIVE FINDINGS: See below PROCEDURE: The patient was taken to the main operating room where general anesthesia was induced. The right foot was isolated with a existing Kerlix wrap, and a Coban wrap. The right leg was then prepped and draped in sterile fashion, with the Coban now covered with a sterile clear plastic bag, and an additional Covan wrap applied. Surgical plan and surgical timeout were conducted. The findings were significant for acsending infection from the right foot up to the ankle just above the lateral malleolus. The skin of the lower leg anteriorly and posteriorly was not involved in infection but was edematous. Markings were made on the skin for a below the knee amputation with a posterior flap proximally 2 times longer than the anterior flap, with the point of bone transection between one half and two thirds distance from the knee. The skin was cut with a #10 blade. Superficial veins were cauterized, or clipped as encountered. The saphenous vein and its branches were tied off with 2-0 Vicryl sutures. Fascia and muscle were divided as encountered with electrocautery. The periosteum overlying the tibia, as well as the fibula was removed with electrocautery and elevator. The superior skin and muscular- fascial flap was retracted cephalad, and the tibia transected at a perpendicular with the oscillating saw. The peroneal vessels were taken as a group, divided and tied off with 0 Vicryl suture. Similarly the posterior and anterior vascular groups were tied off with a 0 Vicryl tie proximally and distally. The fibula was divided after elevating the periosteum as well with the oscillating saw. The soleus and gastrocnemius muscles were divided on a bias, and eventually freeing the foot from the lower leg. Clamps were removed and the foot was sent to pathology for permanent analysis. We now secured any small arterial venous bleeders with clips and 2-0 Vicryl ties. Bone Wax was placed in the transected tibia and fibula. We irrigated the exposed muscle which was completely viable but evidence of infection or ischemia. All mechanical bleeding was felt to be controlled. Sponge and needle counts are correct. Explained to the patient preoperatively, because of the aggressive infection involving his foot, with extension of cellulitis above the ankle, I commended [id number] amputation, leaving the stump open for 24 to 48 hours for tissue stabilization then closure would be appropriate. Therefore Xeroform was placed on the exposed muscle, 4 x 4's applied, ABD pad Curlex and 6 inch Idris wrap. Patient tolerated procedure well, extubated, and taken to recovery room in stable condition
[2020-03-25] MEDS: HYDRALAZINE HCL INJ/PF 20 MG/1 ML SDV ONE ×3 (11:50→12:00)
[2020-03-25] MEDS: FAMOTIDINE INJ/PF 20 MG/2 ML SDV IV SCH ×2 (12:43→22:31)
[2020-03-25] MEDS: DOCUSATE SODIUM 100 MG CAPSULE PO SCH ×2 (13:02→18:00)
[2020-03-25] MEDS: OXYCODONE HCL IR 5 MG TABLET PO PRN (14:06)
[2020-03-25] MEDS: KETOROLAC TROMETHAMINE INJ/PF 30 MG/1 ML SDV IV PRN (15:40)
[2020-03-25] MEDS ORDERED: LIDOCAINE 1%/EPINEPHRINE INJ 20 ML VIAL ONE (16:28)
[2020-03-25] MEDS ORDERED: ROPIVACAINE HCL 0.2% INJ/PF (2 MG/ML) 20 ML SDV ONE (16:28)
[2020-03-25] MEDS ORDERED: LIDOCAINE 2% INJ (20 MG/ML) 20 ML MDV ONE (16:30)
[2020-03-25] MEDS ORDERED: ROPIVACAINE HCL 0.5% INJ/PF (5 MG/1 ML) 30 ML SDV ONE (16:34)
--- NOTE | 2020-03-25 18:53 | PDOC PROGRESS REPORT ---
Subjective Progress Note for:: 03/25/20 Subjective:: Patient is trying to be in good spirits. Unfortunately he was taken for BKA this morning. The wound has been noted to be progressive. Reason For Visit: PUNCTURE WOUND OF RIGHT FOOT WITH COMPLICATION Physical Exam Vital Signs: Temp Pulse Resp BP Pulse Ox 98.7 F 99 20 168/89 H 94 03/25/20 15:34 03/25/20 15:34 03/25/20 15:34 03/25/20 15:34 03/25/20 15:34 Intake & Output 03/24/20 03/25/20 03/26/20 06:59 06:59 06:59 Intake Total 5050 2350 1500 Output Total 1730 1570 200 Balance 3320 780 1300 Weight 138 kg 138.2 kg 138.2 kg General appearance: PRESENT: no acute distress, cooperative Neck exam: ABSENT: JVD - ` Respiratory exam: PRESENT: symmetrical, unlabored. ABSENT: accessory muscle use, tachypnea GI/Abdominal exam: PRESENT: soft. ABSENT: tenderness Neurological exam: PRESENT: alert, awake Results Laboratory Results: 03/25/20 05:48 03/25/20 05:48 03/25/20 03/25/20 05:48 05:48 WBC 9.5 RBC 4.46 Hgb 13.5 Hct 39.1 MCV 88 MCH 30.2 MCHC 34.4 RDW 12.6 Plt Count 235 Seg Neutrophils % 66.3 Sodium 135.1 L Potassium 3.9 Chloride 101 Carbon Dioxide 25 Anion Gap 9 BUN 14 Creatinine 1.16 Est GFR ( Amer) > 60 Glucose 232 H Calcium 8.5 Magnesium 2.1 03/23/20 09:58 Foot - Right Gram Stain - Final 03/23/20 09:58 Foot - Right Gram Stain - Final 03/23/20 04:37 Creatine Kinase 46 L Impressions: Foot X-Ray 03/22/20 11:54 IMPRESSION: Soft tissue air concerning for infection with a gas producing organism. Lower Extremity CT 03/22/20 13:26 IMPRESSION: Deep-seated wound infection without evidence of organized abscess or osteomyelitis. Assessment and Plan - Diagnosis (1) Necrotizing fasciitis of lower leg Is this a current diagnosis for this admission?: Yes Plan: Secondary to trauma from stepping on a nail Taken to the OR again today for further debridement and placement of wound VAC. Deep wound cultures are growing gram-negative luis daniel, Enterobacter bacillus species, and Aeromonas Continue vancomycin. Change Zosyn to cefepime based on susceptibility report. Pain control with IV and p.o. meds as needed patient taking for BKA today. (2) Hyperglycemia due to diabetes mellitus Is this a current diagnosis for this admission?: Yes Plan: New onset diabetes mellitus likely type II. Hemoglobin A1c is 13. I discussed with patient that he needs to be on insulin for proper control of diabetes as his hemoglobin A1c is way above 9.5. However patient declines insulin. As such, I will put patient on metformin and glimepiride. Continue Accu-Cheks and sliding scale. Counseled by seasonal customer service associate (3) Elevated blood pressure reading Is this a current diagnosis for this admission?: Yes (4) Morbid obesity with BMI of 40.0-44.9, adult Is this a current diagnosis for this admission?: Yes - Time Time Spent with patient: Less than 15 minutes Anticipated Discharge Disposition: Home, Self Care Anticipated Discharge Timeframe: Undetermined
[2020-03-25] MEDS ORDERED: INSULIN GLARGINE,HUM.REC.ANLOG 1,000 UNIT/10 ML VIAL SUBCUT SCH (22:00)
[2020-03-25] MEDS ORDERED: CEFEPIME 2 GM/D5W RTU 2 GM/50 ML RTUPB IV SCH (22:00)
[2020-03-25] MEDS ORDERED: INSULIN GLARGINE,HUM.REC.ANLOG 1,000 UNIT/10 ML VIAL (PYX) SUBCUT ONE (22:21)
[2020-03-25] MEDS: ATORVASTATIN CALCIUM 40 MG TABLET PO SCH (22:31)
[2020-03-25] MEDS ORDERED: CEFEPIME 2 GM/D5W RTU 2 GM/50 ML RTUPB IV ONE (22:51)
[2020-03-26] MEDS: KETOROLAC TROMETHAMINE INJ/PF 30 MG/1 ML SDV IV PRN ×2 (00:10→17:27)
[2020-03-26] MEDS: OXYCODONE HCL IR 5 MG TABLET PO PRN ×2 (02:55→10:34)
[2020-03-26] MEDS: VANCOMYCIN HCL 1,500 MG in DEXTROSE 5%-WATER 250 ML IV SCH ×2 (06:36→15:06)
[2020-03-26] MEDS: MORPHINE SULFATE 10 MG/ML INJ IV PRN ×4 (07:22→20:26)
[2020-03-26 08:25] LABS: ABSOLUTE EOSINOPHILS # (AUTO) 0.2 10^3/uL (0.0-0.6); ABSOLUTE LYMPHOCYTES (AUTO) 1.6 10^3/uL (0.5-4.7); ABSOLUTE MONOCYTES (AUTO) 1.3 10^3/uL (0.1-1.4); ABSOLUTE NEUT (AUTO) 6.4 10^3/uL (1.7-8.2); BASOPHILS % (AUTO) 0.5 % (0-2); EOSINOPHILS % (AUTO) 2.1 % (0-6); HEMATOCRIT 37.6 % (37.9-51.0); HEMOGLOBIN 12.7 g/dL (13.5-17.0); LYMPHOCYTES % (AUTO) 16.6 % (13-45); MEAN CORPUSCULAR HGB CONC 33.7 g/dL (32.0-36.0); MEAN CORPUSCULAR VOLUME 89 fl (80-97); MONOCYTES % (AUTO) 13.9 % (3-13); PLATELET COUNT 256 10^3/uL (150-450); RED BLOOD COUNT 4.23 10^6/uL (4.35-5.55); RED CELL DISTRIBUTION WIDTH 12.9 % (11.5-14.0); SEGMENTED NEUTROPHILS % (AUTO) 66.9 % (42-78); TOTAL CELLS COUNTED % (AUTO) 100 %; WHITE BLOOD COUNT 9.6 10^3/uL (4.0-10.5)
[2020-03-26] MEDS: METFORMIN HCL 500 MG TABLET PO SCH ×2 (08:57→17:26)
[2020-03-26] MEDS: INSULIN LISPRO 100 UNIT/ML 3 ML VIAL SUBCUT SCH ×4 (08:57→22:29)
[2020-03-26] MEDS: GLIMEPIRIDE 1 MG TABLET PO SCH (08:58)
[2020-03-26 09:00] LABS: ANION GAP 7 (5-19); BLOOD UREA NITROGEN 13 mg/dL (7-20); CALCIUM 8.3 mg/dL (8.4-10.2); CARBON DIOXIDE 27 mmol/L (22-30); CHLORIDE 99 mmol/L (98-107); GLUCOSE 260 mg/dL (75-110); POTASSIUM 4.2 mmol/L (3.6-5.0)
[2020-03-26] MEDS ORDERED: INSULIN GLARGINE,HUM.REC.ANLOG 1,000 UNIT/10 ML VIAL (PYX) SUBCUT ONE ×3 (09:00→10:23)
[2020-03-26] MEDS ORDERED: INSULIN GLARGINE,HUM.REC.ANLOG 1,000 UNIT/10 ML VIAL SUBCUT SCH ×2 (10:00→22:00)
[2020-03-26] MEDS ORDERED: CEFEPIME HCL 2 GM in DEXTROSE 5%-WATER 50 ML IV SCH (10:00)
[2020-03-26] MEDS: FAMOTIDINE INJ/PF 20 MG/2 ML SDV IV SCH (10:06)
[2020-03-26] MEDS: DOCUSATE SODIUM 100 MG CAPSULE PO SCH ×2 (10:19→20:09)
[2020-03-26] MEDS ORDERED: NORMAL SALINE 1000 ML 500 ML IV ONE (11:19)
--- NOTE | 2020-03-26 11:33 | PDOC PROGRESS REPORT ---
Subjective Progress Note for:: 03/26/20 Subjective:: Patient tolerated BKA yesterday. Having some throbbing foot pain this morning. States the nerve block really helped during the procedure. He is agreeable to being started on insulin at this point. He denies any fevers or chills. He does states that the morphine gives him a headache. Reason For Visit: PUNCTURE WOUND OF RIGHT FOOT WITH COMPLICATION Physical Exam Vital Signs: Temp Pulse Resp BP Pulse Ox 99.1 F 79 20 140/68 H 95 03/25/20 23:11 03/26/20 07:00 03/25/20 23:11 03/25/20 23:11 03/25/20 23:11 Intake & Output 03/25/20 03/26/20 03/27/20 06:59 06:59 06:59 Intake Total 2350 4250 Output Total 1570 1850 Balance 780 2400 Weight 138.2 kg 137.6 kg General appearance: PRESENT: no acute distress, cooperative Neck exam: ABSENT: JVD Respiratory exam: PRESENT: symmetrical, unlabored. ABSENT: accessory muscle use, retraction, tachypnea GI/Abdominal exam: PRESENT: soft. ABSENT: rebound, rigid, tenderness Extremities exam: PRESENT: other - Right BKA in cast. Dressing is not saturated with blood. Neurological exam: PRESENT: alert, awake, oriented to person, oriented to place, oriented to time Psychiatric exam: PRESENT: appropriate affect, normal mood. ABSENT: agitated, anxious Focused psych exam: ABSENT: pressured speech Skin exam: ABSENT: jaundice Results Laboratory Results: 03/26/20 08:05 03/26/20 08:05 03/26/20 03/26/20 03/26/20 08:05 08:05 08:05 WBC 9.6 RBC 4.23 L Hgb 12.7 L Hct 37.6 L MCV 89 MCH 30.0 MCHC 33.7 RDW 12.9 Plt Count 256 Seg Neutrophils % 66.9 Sodium 133.2 L Potassium 4.2 Chloride 99 Carbon Dioxide 27 Anion Gap 7 BUN 13 Creatinine 1.27 H Est GFR ( Amer) > 60 Glucose 260 H Calcium 8.3 L Magnesium 2.0 03/23/20 09:58 Foot - Right Gram Stain - Final 03/22/20 15:30 Foot - Right Gram Stain - Final 03/22/20 15:30 Foot - Right Gram Stain - Final 03/23/20 09:58 Foot - Right Gram Stain - Final 03/23/20 04:37 Creatine Kinase 46 L Impressions: Foot X-Ray 03/22/20 11:54 IMPRESSION: Soft tissue air concerning for infection with a gas producing organism. Lower Extremity CT 03/22/20 13:26 IMPRESSION: Deep-seated wound infection without evidence of organized abscess or osteomyelitis. Assessment and Plan - Diagnosis (1) Necrotizing fasciitis of lower leg Is this a current diagnosis for this admission?: Yes Plan: Secondary to trauma from stepping on a nail Has been to the OR several times during this hospitalization. BKA performed on 03/26/2020. Surgery following and managing Deep wound cultures are growing gram-negative luis daniel, Enterobacter, bacillus species, and Aeromonas Continue vancomycin for bacillus. Cefepime for Enterobacter and Aeromonas -we will also consult ID for antibiotic and duration Pain control with IV and p.o. meds as needed. However we need to be mindful of Toradol given worsening renal function. Will reduce dose. (2) SHELBY (acute kidney injury) Is this a current diagnosis for this admission?: Yes Plan: Creatinine has been slowly trending up during hospitalization. Now up to 1.27. Has been on fluids IV for most of his hospitalization. However uncertain how much fluids he actually lost during operation. Operative note states 200 cc of blood. Will give 500 cc saline bolus Try to minimize nephrotoxic medication use. Check CK Monitor BMP closely (3) Hyperglycemia due to diabetes mellitus Is this a current diagnosis for this admission?: Yes Plan: New onset diabetes mellitus likely type II. Hemoglobin A1c is 13. Patient is now agreeable to using insulin. Continue Metformin. Discontinue glimepiride. Start Lantus 10 units nightly. Continue Accu-Cheks and sliding scale. Counseled by primary special educator (4) Elevated blood pressure reading Is this a current diagnosis for this admission?: Yes Plan: We will monitor blood pressure closely. Denies history of hypertension, it could be due to pain. Pain control as well. (5) Morbid obesity with BMI of 40.0-44.9, adult Is this a current diagnosis for this admission?: Yes - Time Time Spent with patient: 15-24 minutes Anticipated Discharge Disposition: Home with Home Health Anticipated Discharge Timeframe: within 72 hours
[2020-03-26] MEDS: OXYCODONE-ACETAMINOPHEN 5-325 MG TABLET PO PRN ×2 (13:21→22:37)
[2020-03-26] MEDS ORDERED: ERTAPENEM SODIUM INJ 1 GM VIAL IV SCH (13:30)
--- NOTE | 2020-03-26 14:58 | Progress Note ---
Provider Note Provider Note: [facility] Telephone Advice Consultation Chart reviewed. Patient is a 49-year-old man with DM who recently stepped in a nail and developed an infection on his right foot. He had worsening pain, but no other systemic symptoms. He was admitted on 03/22. X ray of the foot showed soft tissue air. CT scan of the right foot demonstrated deep seated wound infection without abscess formation. He was evaluated by surgery on 03/22 for urgent debridement of the right foot maile to gangrene. On 03/23 he developed ischemia of muscles requiring further surgical intervention. On 03/25 he required BKA. Tissue cultures are polymicrobial including Enterobacter, Aeromonas, Bacillus, Clostridium perfringens, Clostridium sordellii. He has been on vancomycin and cefepime. No anaerobic coverage. ID consulted for recomendations. PMH: Diabetes Mellitus Allergies: No Known Allergies Allergy (Unverified 03/22/20 12:56) Medications: No Home Medications 03/22/20 Vital Signs: Temp Pulse Resp BP Pulse Ox 99.1 F 79 20 140/68 H 95 03/25/20 23:11 03/26/20 07:00 03/25/20 23:11 03/25/20 23:11 03/25/20 23:11 Intake & Output 03/25/20 03/26/20 03/27/20 06:59 06:59 06:59 Intake Total 2350 4250 Output Total 1570 1850 Balance 780 2400 Weight 138.2 kg 137.6 kg Weight/Height Weight 137.6 kg Height 5 ft 9 in Laboratories 03/26/20 08:05 03/26/20 08:05 MCV 89 fl (80-97) 03/26/20 08:05 MCH 30.0 pg (27.0-33.4) 03/26/20 08:05 MCHC 33.7 g/dL (32.0-36.0) 03/26/20 08:05 RDW 12.9 % (11.5-14.0) 03/26/20 08:05 Seg Neutrophils % 66.9 % (42-78) 03/26/20 08:05 Chloride 99 mmol/L (98-107) 03/26/20 08:05 Carbon Dioxide 27 mmol/L (22-30) 03/26/20 08:05 Anion Gap 7 (5-19) 03/26/20 08:05 Est GFR ( Amer) > 60 (>60) 03/26/20 08:05 Glucose 260 mg/dL (75-110) H 03/26/20 08:05 Lactic Acid 1.1 mmol/L (0.7-2.1) 03/22/20 19:30 Calcium 8.3 mg/dL (8.4-10.2) L 03/26/20 08:05 Magnesium 2.0 mg/dL (1.6-2.3) 03/26/20 08:05 Total Bilirubin 1.1 mg/dL (0.2-1.3) 03/22/20 12:15 AST 20 U/L (17-59) 03/22/20 12:15 Alkaline Phosphatase 85 U/L (38-126) 03/22/20 12:15 Total Protein 6.7 g/dL (6.3-8.2) 03/22/20 12:15 Albumin 3.9 g/dL (3.5-5.0) 03/22/20 12:15 Triglycerides 114 mg/dL (<150) 03/23/20 04:37 Cholesterol 169.09 mg/dL (0-200) 03/23/20 04:37 LDL Cholesterol Direct 113 mg/dL (<100) H 03/23/20 04:37 VLDL Cholesterol 23.0 mg/dL (10-31) 03/23/20 04:37 HDL Cholesterol 38 mg/dL (>40) L 03/23/20 04:37 03/23/20 09:58 Foot - Right Gram Stain - Final 03/23/20 09:58 Foot - Right Wound Culture - Final Enterobacter Cloacae Clostridium Perfringens 03/22/20 15:30 Foot - Right Gram Stain - Final 03/22/20 15:30 Foot - Right Wound Culture - Final Enterobacter Cloacae Aeromonas Hydrophilia Group Bacillus Sp. Not Anthracis Clostridium Perfringens 03/23/20 09:58 Foot - Right Gram Stain - Final 03/23/20 09:58 Foot - Right Wound Culture - Final Enterobacter Cloacae Clostridium Perfringens 03/22/20 15:30 Foot - Right Gram Stain - Final 03/22/20 15:30 Foot - Right Wound Culture - Final Enterobacter Cloacae Aeromonas Hydrophilia Group Bacillus Sp. Not Anthracis Clostridium Perfringens Clostridium Sordellii 03/22/20 15:30 Foot - Right Gram Stain - Final 03/22/20 15:30 Foot - Right Wound Culture - Final Enterobacter Cloacae Aeromonas Hydrophilia Group Clostridium Perfringens Clostridium Sordellii 03/23/20 03/26/20 04:37 08:05 Creatine Kinase 46 L 181 H Radiology: Foot X-Ray 03/22/20 11:54 IMPRESSION: Soft tissue air concerning for infection with a gas producing organism. Lower Extremity CT 03/22/20 13:26 IMPRESSION: Deep-seated wound infection without evidence of organized abscess or osteomyelitis. Assessment and Recommendations: Patient evaluated due to necrotizing fasciitis of the right foot s/p multiple debridement and ultimately requiring BKA on 03/25. This infection is polymicrobial with significant amount of anaerobes including Clostridium sordellii that has been associated with septic shock and severe infection. He is afebrile and HD stable, no leukocytosis, blood glucose elevated. Considering the polymicrobial nature of this infection, vancomycin + ertapenem would be the best regimen. Another alternative is to add metronidazole 500 mg po BID to his current regimen vancomycin and cefepime. As he had source control with BKA, he will only need 3 more days of therapy with EOT: 03/29/20. Please call if questions. Tete Waters MD [facility] [phone]
--- NOTE | 2020-03-26 15:29 | PDOC PROGRESS REPORT ---
Subjective Progress Note for:: 03/26/20 Subjective:: Pains right BKA stump Reason For Visit: PUNCTURE WOUND OF RIGHT FOOT WITH COMPLICATION Physical Exam Vital Signs: Temp Pulse Resp BP Pulse Ox 99.1 F 79 20 140/68 H 95 03/25/20 23:11 03/26/20 07:00 03/25/20 23:11 03/25/20 23:11 03/25/20 23:11 Intake & Output 03/25/20 03/26/20 03/27/20 06:59 06:59 06:59 Intake Total 2350 4250 250 Output Total 1570 1850 Balance 780 2400 250 Weight 138.2 kg 137.6 kg Exam: Dressings on right BKA stump removed. The stump still not closed. The stump looks relatively clean. New dressing was placed. Results Laboratory Results: 03/26/20 08:05 03/26/20 08:05 03/26/20 03/26/20 03/26/20 08:05 08:05 08:05 WBC 9.6 RBC 4.23 L Hgb 12.7 L Hct 37.6 L MCV 89 MCH 30.0 MCHC 33.7 RDW 12.9 Plt Count 256 Seg Neutrophils % 66.9 Sodium 133.2 L Potassium 4.2 Chloride 99 Carbon Dioxide 27 Anion Gap 7 BUN 13 Creatinine 1.27 H Est GFR ( Amer) > 60 Glucose 260 H Calcium 8.3 L Magnesium 2.0 03/23/20 09:58 Foot - Right Gram Stain - Final 03/23/20 09:58 Foot - Right Wound Culture - Final Enterobacter Cloacae Clostridium Perfringens 03/22/20 15:30 Foot - Right Gram Stain - Final 03/22/20 15:30 Foot - Right Wound Culture - Final Enterobacter Cloacae Aeromonas Hydrophilia Group Bacillus Sp. Not Anthracis Clostridium Perfringens 03/23/20 09:58 Foot - Right Gram Stain - Final 03/23/20 09:58 Foot - Right Wound Culture - Final Enterobacter Cloacae Clostridium Perfringens 03/22/20 15:30 Foot - Right Gram Stain - Final 03/22/20 15:30 Foot - Right Wound Culture - Final Enterobacter Cloacae Aeromonas Hydrophilia Group Bacillus Sp. Not Anthracis Clostridium Perfringens Clostridium Sordellii 03/22/20 15:30 Foot - Right Gram Stain - Final 03/22/20 15:30 Foot - Right Wound Culture - Final Enterobacter Cloacae Aeromonas Hydrophilia Group Clostridium Perfringens Clostridium Sordellii 03/23/20 03/26/20 04:37 08:05 Creatine Kinase 46 L 181 H Impressions: Foot X-Ray 03/22/20 11:54 IMPRESSION: Soft tissue air concerning for infection with a gas producing organism. Lower Extremity CT 03/22/20 13:26 IMPRESSION: Deep-seated wound infection without evidence of organized abscess or osteomyelitis. Assessment & Plan - Time Critical Time spent with patient: 15-24 minutes Anticipated Discharge Disposition: Home, Self Care Anticipated Discharge Timeframe: within 72 hours - Inpatient Certification Medical Necessity: Need for IV Antibiotics, Need for Surgery - Plan Summary Plan Summary: Patient had right BKA done yesterday but the stump was left open. The stump looks fairly clean today. We will take the patient back to the OR tomorrow for formal closure of the BKA stump.
[2020-03-26 16:11] LABS: VANCOMYCIN,TROUGH 23.6 ug/mL (5.0-20.0)
[2020-03-26] MEDS ORDERED: DEXTROSE 50%-WATER 25 GM/50 ML DISP.SYRIN IV PRN ×2 (16:27)
[2020-03-26] MEDS ORDERED: GLUCAGON,HUMAN RECOMB 1 MG INJ SUBCUT PRN (16:27)
[2020-03-26] MEDS ORDERED: DEXTROSE 40% GEL 15 GM TUBE PO PRN ×2 (16:27)
[2020-03-26] MEDS: MEROPENEM 1 GM in NORMAL SALINE 50 ML IV SCH (17:28)
[2020-03-26] MEDS ORDERED: NIFEDIPINE 30 MG TAB.ER.24 PO ONE (18:34)
[2020-03-26] MEDS ORDERED: NORMAL SALINE 1000 ML 1,000 ML IV PRN (18:35)
[2020-03-26] MEDS: ATORVASTATIN CALCIUM 40 MG TABLET PO SCH (22:37)
[2020-03-26] MEDS: FAMOTIDINE 20 MG TABLET PO SCH (22:38)
[2020-03-26 22:44] LABS: APPEARANCE,URINE CLEAR; BILIRUBIN,URINE NEGATIVE (NEGATIVE); COLOR,URINE YELLOW; GLUCOSE, URINE NEGATIVE (NEGATIVE); KETONES,URINE NEGATIVE (NEGATIVE); LEUKOCYTE ESTERASE,URINE NEGATIVE (NEGATIVE); NITRITE,URINE NEGATIVE (NEGATIVE); PROTEIN,URINE NEGATIVE (NEGATIVE); URINE SPECIFIC GRAVITY 1.006; UROBILINOGEN,URINE NEGATIVE mg/dL (<2.0)
[2020-03-27] MEDS: MORPHINE SULFATE 10 MG/ML INJ IV PRN ×3 (00:58→09:49)
[2020-03-27] MEDS: KETOROLAC TROMETHAMINE INJ/PF 30 MG/1 ML SDV IV PRN (02:41)
[2020-03-27] MEDS: MEROPENEM 1 GM in NORMAL SALINE 50 ML IV SCH ×3 (05:11→21:28)
[2020-03-27] MEDS ORDERED: VANCOMYCIN HCL 1,500 MG in DEXTROSE 5%-WATER 250 ML IV SCH (06:00)
[2020-03-27] MEDS: INSULIN LISPRO 100 UNIT/ML 3 ML VIAL SUBCUT SCH ×4 (07:11→21:23)
[2020-03-27] MEDS: METFORMIN HCL 500 MG TABLET PO SCH (08:48)
[2020-03-27] MEDS ORDERED: SUCCINYLCHOLINE CHLORIDE INJ 200 MG/10 ML VIAL ONE (09:09)
[2020-03-27] MEDS ORDERED: ONDANSETRON HCL INJ/PF 4 MG/2 ML SDV ONE (09:09)
[2020-03-27] MEDS ORDERED: LIDOCAINE 2% INJ-PF (20 MG/ML) 2 ML AMPUL ONE (09:09)
[2020-03-27] MEDS ORDERED: ROCURONIUM BROMIDE INJ 50 MG/5 ML VIAL IV ONE (09:09)
[2020-03-27] MEDS: FAMOTIDINE 20 MG TABLET PO SCH ×2 (09:18→21:28)
[2020-03-27] MEDS: NIFEDIPINE 30 MG TAB.ER.24 PO SCH (09:18)
[2020-03-27] MEDS: DOCUSATE SODIUM 100 MG CAPSULE PO SCH ×2 (09:18→17:08)
[2020-03-27] MEDS ORDERED: INSULIN GLARGINE,HUM.REC.ANLOG 1,000 UNIT/10 ML VIAL SUBCUT SCH (10:00)
[2020-03-27 10:24] LABS: HEMATOCRIT 38.5 % (37.9-51.0); HEMOGLOBIN 13.2 g/dL (13.5-17.0); MEAN CORPUSCULAR HGB CONC 34.2 g/dL (32.0-36.0); MEAN CORPUSCULAR VOLUME 88 fl (80-97); PLATELET COUNT 307 10^3/uL (150-450); RED BLOOD COUNT 4.39 10^6/uL (4.35-5.55); RED CELL DISTRIBUTION WIDTH 12.6 % (11.5-14.0); WHITE BLOOD COUNT 9.2 10^3/uL (4.0-10.5)
[2020-03-27 10:38] LABS: ANION GAP 9 (5-19); BLOOD UREA NITROGEN 9 mg/dL (7-20); CALCIUM 8.7 mg/dL (8.4-10.2); CARBON DIOXIDE 29 mmol/L (22-30); CHLORIDE 102 mmol/L (98-107); GLUCOSE 131 mg/dL (75-110)
[2020-03-27] MEDS ORDERED: BUPIVACAINE HCL 0.5 % INJ/PF 30 ML SDV ONE (12:29)
[2020-03-27] MEDS ORDERED: ROPIVACAINE HCL 0.5% INJ/PF (5 MG/1 ML) 30 ML SDV ONE (12:30)
[2020-03-27] MEDS ORDERED: FENTANYL CITRATE INJ/PF 100 MCG/2 ML AMPUL ONE (13:29)
[2020-03-27] MEDS ORDERED: PROPOFOL INJ 200 MG/20 ML VIAL IV ONE (13:29)
[2020-03-27] MEDS ORDERED: SUGAMMADEX SODIUM 200 MG/2 ML SDV IV ONE (13:29)
[2020-03-27] MEDS ORDERED: MIDAZOLAM 2 MG/2 ML INJ ONE (13:29)
[2020-03-27] MEDS ORDERED: RINGERS SOLUTION,LACTATED 1,000 ML IV ONE (14:04)
[2020-03-27] MEDS ORDERED: BISACODYL 5 MG TABEC PO PRN (14:10)
[2020-03-27] MEDS ORDERED: ONDANSETRON HCL INJ/PF 4 MG/2 ML SDV IV PRN (14:29)
[2020-03-27] MEDS ORDERED: MEPERIDINE HCL/PF INJ 25 MG/1 ML DISP.SYRIN IV PRN (14:29)
[2020-03-27] MEDS ORDERED: DIPHENHYDRAMINE HCL 50 MG/ML VIAL IV PRN (14:29)
[2020-03-27] MEDS ORDERED: FENTANYL CITRATE INJ/PF 100 MCG/2 ML AMPUL IV PRN ×3 (14:29)
[2020-03-27] MEDS ORDERED: PROMETHAZINE HCL INJ 25 MG/1 ML VIAL IV PRN ×2 (14:29)
[2020-03-27] MEDS ORDERED: OXYCODONE-ACETAMINOPHEN 5-325 MG TABLET PO PRN ×2 (14:29)
--- NOTE | 2020-03-27 14:31 | PDOC PROGRESS REPORT ---
Subjective Progress Note for:: 03/27/20 Subjective:: Patient complains of pain is in his stump. Describes the pain as burning sensation something more like a nerve type pain. States that the morphine gives him a headache. Reason For Visit: PUNCTURE WOUND OF RIGHT FOOT WITH COMPLICATION Physical Exam Vital Signs: Temp Pulse Resp BP Pulse Ox 98.1 F 84 20 166/83 H 95 03/27/20 10:00 03/27/20 07:58 03/27/20 07:58 03/27/20 07:58 03/27/20 07:58 Intake & Output 03/26/20 03/27/20 03/28/20 06:59 06:59 06:59 Intake Total 5250 2460 1250 Output Total 1850 2420 Balance 3400 40 1250 Weight 137.6 kg 137.8 kg General appearance: PRESENT: no acute distress, cooperative Neck exam: ABSENT: JVD Respiratory exam: PRESENT: clear to auscultation so, symmetrical, unlabored. ABSENT: tachypnea, wheezes Cardiovascular exam: PRESENT: RRR, +S1, +S2. ABSENT: tachycardia GI/Abdominal exam: PRESENT: soft. ABSENT: rebound, rigid, tenderness Extremities exam: PRESENT: other - Right lower extremity BKA stump clean dressing. Without saturation.. ABSENT: calf tenderness Neurological exam: PRESENT: alert, awake, oriented to person, oriented to place, oriented to time Psychiatric exam: ABSENT: agitated, anxious Results Laboratory Results: 03/27/20 09:36 03/27/20 09:36 03/26/20 03/27/20 03/27/20 22:30 09:36 09:36 WBC 9.2 RBC 4.39 Hgb 13.2 L Hct 38.5 MCV 88 MCH 30.0 MCHC 34.2 RDW 12.6 Plt Count 307 Sodium 140.1 Potassium 4.0 Chloride 102 Carbon Dioxide 29 Anion Gap 9 BUN 9 Creatinine 1.31 H Est GFR ( Amer) > 60 Glucose 131 H Calcium 8.7 Urine Color YELLOW Urine Appearance CLEAR Urine pH 6.0 Ur Specific [place] 1.006 Urine Protein NEGATIVE Urine Glucose (UA) NEGATIVE Urine Ketones NEGATIVE Urine Blood MODERATE H Urine Nitrite NEGATIVE Ur Leukocyte Esterase NEGATIVE Urine WBC (Auto) 2 Urine RBC (Auto) 3 03/22/20 12:15 Blood Blood Culture - Final NO GROWTH IN 5 DAYS 03/23/20 09:58 Foot - Right Gram Stain - Final 03/23/20 09:58 Foot - Right Wound Culture - Final Enterobacter Cloacae Clostridium Perfringens 03/22/20 15:30 Foot - Right Gram Stain - Final 03/22/20 15:30 Foot - Right Wound Culture - Final Enterobacter Cloacae Aeromonas Hydrophilia Group Bacillus Sp. Not Anthracis Clostridium Perfringens 03/23/20 09:58 Foot - Right Gram Stain - Final 03/23/20 09:58 Foot - Right Wound Culture - Final Enterobacter Cloacae Clostridium Perfringens 03/22/20 15:30 Foot - Right Gram Stain - Final 03/22/20 15:30 Foot - Right Wound Culture - Final Enterobacter Cloacae Aeromonas Hydrophilia Group Bacillus Sp. Not Anthracis Clostridium Perfringens Clostridium Sordellii 03/22/20 15:30 Foot - Right Gram Stain - Final 03/22/20 15:30 Foot - Right Wound Culture - Final Enterobacter Cloacae Aeromonas Hydrophilia Group Clostridium Perfringens Clostridium Sordellii 03/23/20 03/26/20 04:37 08:05 Creatine Kinase 46 L 181 H Impressions: Foot X-Ray 03/22/20 11:54 IMPRESSION: Soft tissue air concerning for infection with a gas producing organism. Lower Extremity CT 03/22/20 13:26 IMPRESSION: Deep-seated wound infection without evidence of organized abscess or osteomyelitis. Assessment and Plan - Diagnosis (1) Necrotizing fasciitis of lower leg Is this a current diagnosis for this admission?: Yes Plan: Gas gangrene secondary to trauma from stepping on a nail Has been to the OR several times during this hospitalization. BKA performed on 03/26/2020. Surgery following and managing Deep wound cultures are growing Clostridium perfringens, Clostridium Sodelli, Enterobacter, bacillus species, and Aeromonas Initially was on vancomycin, Zosyn and completed 48 hours of clindamycin. Then vancomycin and meropenem. ID was consulted and made recommendations for ABX. Also indicates end date of treatment of 03/29/2020 given source control achieved. However I had to discontinue vancomycin today as patient's renal function is worsening. On my review of literature and susceptibility report given, meropenem should be sufficient to cover all of the above organisms. However will add linezolid in place of vanc. We will adjust his pain meds. Start gabapentin. Continue Percocet. Switch morphine IV to Dilaudid for breakthrough pain. Discontinue Toradol. Plan to be taken to the OR today for closure of wound (2) SHELBY (acute kidney injury) Is this a current diagnosis for this admission?: Yes Plan: Creatinine has been slowly trending up during hospitalization. Has been on fluids IV for most of his hospitalization. CK is not impressive. Will discontinue Toradol. Discontinue vancomycin. Give lactated Ringer's bolus. Check BMP in the morning. If still no improvement with discontinuation of vancomycin, will recommend consulting nephrology. (3) Hyperglycemia due to diabetes mellitus Is this a current diagnosis for this admission?: Yes Plan: New onset diabetes mellitus likely type II. Hemoglobin A1c is 13. Patient is now agreeable to using insulin. Discontinued metformin and glimepiride. Started Lantus 10 units q12. Continue Accu-Cheks and sliding scale. Counseled by business applications specialist (4) Elevated blood pressure reading Is this a current diagnosis for this admission?: Yes Plan: We will monitor blood pressure closely. Denies history of hypertension, it could be due to pain. Procardia started. Pain control as well. (5) Morbid obesity with BMI of 40.0-44.9, adult Is this a current diagnosis for this admission?: Yes - Time Time Spent with patient: 15-24 minutes Anticipated Discharge Disposition: Home, Self Care Anticipated Discharge Timeframe: within 72 hours
[2020-03-27] MEDS: GABAPENTIN 100 MG CAPSULE PO SCH ×3 (15:15→21:28)
--- NOTE | 2020-03-27 16:35 | Operative Report ---
Operative Report DATE OF SURGERY: 03/27/20 PREOPERATIVE DIAGNOSIS: Right below-knee amputation with open wound POSTOPERATIVE DIAGNOSIS: Same OPERATION: Revision of right below-knee amputation SURGEON: KELSIE SAINZ ANESTHESIA: GA TISSUE REMOVED OR ALTERED: Part of tibia-fibula and muscle COMPLICATIONS: None ESTIMATED BLOOD LOSS: 50 cc QUANTITATIVE BLOOD LOSS: 50 INTRAOPERATIVE FINDINGS: Few areas of nonviable muscle. The skin of the open wound is partially retracted PROCEDURE: After adequate right knee block and general anesthesia patient was placed in supine position and the right below-knee amputation stump and thigh were then prepped and draped in the usual sterile fashion. Appropriate timeout was then called. Next the open BKA stump showed some areas of darkly discolored muscle. This was then sharply debrided. The skin of the stump also appears to have partially retracted and it will be very tight to close the skin edges. Because of this the tibial bone was cut higher up about 1 inch and fibula also cut with a saw about an inch also. All the vessels anterior tibial posterior tibial and peroneal arteries will also clamped and ligated and suture ligated with 2-0 and 0 Vicryl sutures. Some of the smaller vessels were also cauterized. The anterior skin was trimmed about 1cm higher up for better closure of normal tissue. The fascia was then sutured from the posterior flap to the anterior to the tibia with 0 Vicryl sutures interruptedly. This was done from one edge to the other. The skin edges approximated nicely and and they were closed with skin courtney. Stump was then closed and wrapped with Xeroform gauze on top of this incision and covered with ABD and wrapped with Idris with Kerlix and Idris bandage. Posterior splint was put back. Patient tolerated procedure well and brought to the recovery room in satisfactory condition extubated.
[2020-03-27] MEDS: HYDROMORPHONE HCL INJ/PF 2 MG/ML AMPULE IV PRN (18:20)
[2020-03-27] MEDS: INSULIN GLARGINE,HUM.REC.ANLOG 1,000 UNIT/10 ML VIAL SUBCUT SCH (21:27)
[2020-03-27] MEDS: ATORVASTATIN CALCIUM 40 MG TABLET PO SCH (21:28)
[2020-03-27] MEDS: LINEZOLID 600 MG/300 ML RTUPB IV SCH (22:15)
[2020-03-28] MEDS: HYDROMORPHONE HCL INJ/PF 2 MG/ML AMPULE IV PRN ×4 (00:26→19:43)
[2020-03-28] MEDS: ONDANSETRON HCL INJ/PF 4 MG/2 ML SDV IV PRN (00:36)
[2020-03-28] MEDS: OXYCODONE-ACETAMINOPHEN 5-325 MG TABLET PO PRN ×2 (03:38→07:54)
[2020-03-28] MEDS: GABAPENTIN 100 MG CAPSULE PO SCH ×3 (06:22→21:24)
[2020-03-28] MEDS: MEROPENEM 1 GM in NORMAL SALINE 50 ML IV SCH ×3 (06:22→21:23)
[2020-03-28] MEDS: INSULIN LISPRO 100 UNIT/ML 3 ML VIAL SUBCUT SCH ×4 (07:54→22:07)
[2020-03-28 08:01] LABS: ANION GAP 8 (5-19); BLOOD UREA NITROGEN 8 mg/dL (7-20); CALCIUM 8.2 mg/dL (8.4-10.2); CARBON DIOXIDE 25 mmol/L (22-30); CHLORIDE 101 mmol/L (98-107); GLUCOSE 212 mg/dL (75-110); POTASSIUM 4.1 mmol/L (3.6-5.0)
[2020-03-28] MEDS: FAMOTIDINE 20 MG TABLET PO SCH ×2 (09:06→21:24)
[2020-03-28] MEDS: DOCUSATE SODIUM 100 MG CAPSULE PO SCH ×2 (09:06→17:29)
[2020-03-28] MEDS: NIFEDIPINE 30 MG TAB.ER.24 PO SCH ×2 (09:06→21:23)
[2020-03-28] MEDS: LINEZOLID 600 MG/300 ML RTUPB IV SCH ×2 (09:06→22:08)
[2020-03-28] MEDS: INSULIN GLARGINE,HUM.REC.ANLOG 1,000 UNIT/10 ML VIAL SUBCUT SCH ×2 (09:06→22:07)
--- NOTE | 2020-03-28 13:18 | PDOC PROGRESS REPORT ---
Subjective Progress Note for:: 03/28/20 Reason For Visit: PUNCTURE WOUND OF RIGHT FOOT WITH COMPLICATION Physical Exam Vital Signs: Temp Pulse Resp BP Pulse Ox 97.6 F 87 18 181/86 H 96 03/28/20 10:00 03/28/20 07:00 03/28/20 00:00 03/28/20 00:00 03/28/20 00:00 Intake & Output 03/27/20 03/28/20 03/29/20 06:59 06:59 06:59 Intake Total 2460 4300 350 Output Total 2420 4075 Balance 40 225 350 Weight 137.8 kg 126.9 kg Results Laboratory Results: 03/27/20 09:36 03/28/20 07:33 03/28/20 07:33 Sodium 133.5 L Potassium 4.1 Chloride 101 Carbon Dioxide 25 Anion Gap 8 BUN 8 Creatinine 1.18 Est GFR ( Amer) > 60 Glucose 212 H Calcium 8.2 L 03/22/20 19:30 Blood Blood Culture - Final NO GROWTH IN 5 DAYS 03/22/20 12:15 Blood Blood Culture - Final NO GROWTH IN 5 DAYS 03/23/20 03/26/20 04:37 08:05 Creatine Kinase 46 L 181 H Impressions: Foot X-Ray 03/22/20 11:54 IMPRESSION: Soft tissue air concerning for infection with a gas producing organism. Lower Extremity CT 03/22/20 13:26 IMPRESSION: Deep-seated wound infection without evidence of organized abscess or osteomyelitis. Assessment & Plan - Diagnosis (1) Necrotizing fasciitis of lower leg Is this a current diagnosis for this admission?: Yes - Time Anticipated Discharge Disposition: Unknown Anticipated Discharge Timeframe: Unknown - Plan Summary Plan Summary: 49-year-old male status post below-knee amputation for a severe, necrotizing diabetic foot infection. Currently his amputation stump is wrapped. He compla ins of pain. He denies any dizziness or psychomotor depression (after beginning low-dose Neurontin). I have encouraged the patient to wear his leg splint when sleeping. He may remove it during the daytime. I will increase his Neurontin and oxycodone in an effort to afford him some pain relief. Dr. Storey plans to unwrap the stump tomorrow and evaluate the incision. Continue antibiotics. Maria Ines barbosa will continue to follow.
--- NOTE | 2020-03-28 15:57 | PDOC PROGRESS REPORT ---
Subjective Progress Note for:: 03/28/20 Subjective:: No acute events overnight. Patient continues to have severe, uncontrolled pain requiring IV pain medications. Reason For Visit: PUNCTURE WOUND OF RIGHT FOOT WITH COMPLICATION Physical Exam Vital Signs: Temp Pulse Resp BP Pulse Ox 97.6 F 87 18 181/86 H 96 03/28/20 10:00 03/28/20 07:00 03/28/20 00:00 03/28/20 00:00 03/28/20 00:00 Intake & Output 03/27/20 03/28/20 03/29/20 06:59 06:59 06:59 Intake Total 2460 4300 400 Output Total 2420 4075 Balance 40 225 400 Weight 137.8 kg 126.9 kg Additional comments: General: well appearing man in NAD, talkative, pleasant, in good spirits Head: normocephalic, atraumatic Eyes: anicteric sclera ENT: moist mucus memranes, no oropharyngeal erythema/exudate Neck: no lymphadenopathy Lungs: clear to auscultation bilaterally Heart: regular rate and rhythm, no murmurs/rubs/gallops Abdomen: normoactive bowel sounds, soft, non-tender, non-distended : no CVA tenderness, no suprapubic tenderness Extremities: s/p R BKA (bandages not removed), warm and well perfused, no edema Vascular: 2+ peripheral pulses in all extremities Neuro: A&Ox3, CN II-XII in tact Skin: no rash Results Laboratory Results: 03/27/20 09:36 03/28/20 07:33 03/28/20 07:33 Sodium 133.5 L Potassium 4.1 Chloride 101 Carbon Dioxide 25 Anion Gap 8 BUN 8 Creatinine 1.18 Est GFR ( Amer) > 60 Glucose 212 H Calcium 8.2 L 03/22/20 19:30 Blood Blood Culture - Final NO GROWTH IN 5 DAYS 03/22/20 12:15 Blood Blood Culture - Final NO GROWTH IN 5 DAYS 03/23/20 03/26/20 04:37 08:05 Creatine Kinase 46 L 181 H Impressions: Foot X-Ray 03/22/20 11:54 IMPRESSION: Soft tissue air concerning for infection with a gas producing organism. Lower Extremity CT 03/22/20 13:26 IMPRESSION: Deep-seated wound infection without evidence of organized abscess or osteomyelitis. Assessment and Plan - Plan Summary Summary: Necrotizing fasciitis of RLE: developed gas gangrene secondary to trauma from stepping on a nail. Has been to the OR several times during this hospitalization. BKA performed on 03/26/2020 and wound closure performed 03/27/2020. Surgery following and managing. - Deep wound cultures are growing Clostridium perfringens, Clostridium Sodelli, Enterobacter, bacillus species, and Aeromonas - Initially was on vancomycin, Zosyn and completed 48 hours of clindamycin. Then vancomycin and meropenem. ID was consulted and recommended end date of treatment of 03/29/2020 given source control achieved surgically. We had to to discontinue vancomycin as patient's renal function began to worsen. Currently on meropenem with linezolid in place of vanc. - will need ongoing PT to assess mobility and prepare patient for discharge home (he has several stairs to get into his house), and will need DME prior to discharge uncontrolled pain: due to multiple surgeries and stump edema. He notes that it is painful to wear knee immobilizer due to pressure. - will adjust pain meds, add oxycontin SR - continue Dilaudid IV PRN breakthrough pain - Toradol discontinued in the s/o SHELBY SHELBY (acute kidney injury): Creatinine has been slowly trending up during hospitalization, but improved somewhat since yesterday. - continue to hold Vanc/Toradol - encourage oral hydration, hold off on IVF - avoid nephrotoxins uncontrolled diabetes mellitus type II complicated by hyperglycemia (new diagnosis this admission): Hemoglobin A1c is 13.5 - counseled on weight loss, carb controlled diet, insulin usage - increase Lantus from 10 to 15 units q12 (plan to switch to daily dosing on discharge) - Continue Accu-Cheks and sliding scale. - Counseled by family living educator essential hypertension: uncontrolled - increase Nifed from 30 to 60 mg HS - avoid FIONA/ARB in the s/o SHELBY, but would benefit from addition of one of these in the outpatient setting given concurrent DM2 Morbid obesity with BMI of 40.0-44.9, adult - counseled on diet/exercise and weight loss - Time Time Spent with patient: 35 or more minutes Medications reviewed and adjusted accordingly: Yes Anticipated Discharge Disposition: Home, Self Care Anticipated Discharge Timeframe: within 48 hours
[2020-03-28] MEDS: OXYCODONE HCL IR 5 MG TABLET PO PRN ×2 (16:23→20:44)
[2020-03-28] MEDS: OXYCODONE HCL SR 10 MG TABLET PO SCH (21:20)
[2020-03-28] MEDS: ATORVASTATIN CALCIUM 40 MG TABLET PO SCH (21:24)
[2020-03-29] MEDS: OXYCODONE HCL IR 5 MG TABLET PO PRN ×4 (00:45→19:31)
[2020-03-29] MEDS: HYDROMORPHONE HCL INJ/PF 2 MG/ML AMPULE IV PRN ×4 (03:24→23:40)
[2020-03-29] MEDS: MEROPENEM 1 GM in NORMAL SALINE 50 ML IV SCH ×3 (05:36→22:15)
[2020-03-29] MEDS: GABAPENTIN 100 MG CAPSULE PO SCH ×3 (05:37→22:10)
[2020-03-29] MEDS: INSULIN LISPRO 100 UNIT/ML 3 ML VIAL SUBCUT SCH ×4 (08:03→22:15)
[2020-03-29] MEDS: FAMOTIDINE 20 MG TABLET PO SCH ×2 (09:46→22:11)
[2020-03-29] MEDS: INSULIN GLARGINE,HUM.REC.ANLOG 1,000 UNIT/10 ML VIAL SUBCUT SCH ×2 (09:46→22:11)
--- NOTE | 2020-03-29 09:59 | PDOC PROGRESS REPORT ---
Subjective Progress Note for:: 03/29/20 Subjective:: Pains right BKA stump which is a little bit improving Reason For Visit: PUNCTURE WOUND OF RIGHT FOOT WITH COMPLICATION Physical Exam Vital Signs: Temp Pulse Resp BP Pulse Ox 98.4 F 88 16 153/78 H 94 03/29/20 04:11 03/29/20 07:00 03/29/20 04:11 03/29/20 04:11 03/29/20 04:11 Intake & Output 03/28/20 03/29/20 03/30/20 06:59 06:59 06:59 Intake Total 4300 2260 Output Total 4075 2450 Balance 225 -190 Weight 126.9 kg 134.2 kg Exam: Right BKA stump dressing intact and dry. Dressing removed and there is some erythema on the medial aspect of the incision that is quite tender. Results Laboratory Results: 03/27/20 09:36 03/28/20 07:33 03/23/20 03/26/20 04:37 08:05 Creatine Kinase 46 L 181 H Impressions: Foot X-Ray 03/22/20 11:54 IMPRESSION: Soft tissue air concerning for infection with a gas producing organism. Lower Extremity CT 03/22/20 13:26 IMPRESSION: Deep-seated wound infection without evidence of organized abscess or osteomyelitis. Assessment & Plan - Diagnosis (1) Diabetes mellitus Is this a current diagnosis for this admission?: No (2) Hyperglycemia Is this a current diagnosis for this admission?: Yes (3) Morbid obesity with BMI of 40.0-44.9, adult Is this a current diagnosis for this admission?: Yes (4) Puncture wound of right foot with complication Qualifiers: Encounter type: initial encounter Qualified Code(s): S91.331A - Puncture wound without foreign body, right foot, initial encounter Is this a current diagnosis for this admission?: Yes - Time Critical Time spent with patient: 15-24 minutes Anticipated Discharge Disposition: Home, Self Care Anticipated Discharge Timeframe: within 48 hours - Inpatient Certification Medical Necessity: Need for IV Antibiotics - Plan Summary Plan Summary: Patient is postop day #2 revision of right below-knee amputation. Dressing was removed and there appears to be suggestion of cellulitis with erythema on the medial part of the incision stump. Because of this will continue the patient on IV antibiotics and reevaluate the wound stump in 24 hours prior to discharge.
[2020-03-29] MEDS: DOCUSATE SODIUM 100 MG CAPSULE PO SCH ×2 (10:39→17:04)
[2020-03-29] MEDS: OXYCODONE HCL SR 10 MG TABLET PO SCH ×2 (11:28→22:10)
[2020-03-29] MEDS: NIFEDIPINE 30 MG TAB.ER.24 PO SCH ×2 (11:28→23:05)
[2020-03-29] MEDS ORDERED: MEROPENEM 1 GM VIAL IV SCH (15:00)
--- NOTE | 2020-03-29 17:58 | PDOC PROGRESS REPORT ---
Subjective Progress Note for:: 03/29/20 Subjective:: NAEO. States that he has been sleeping poorly due to uncontrolled pain. Having daily BM. Denies fevers/chills. Reason For Visit: PUNCTURE WOUND OF RIGHT FOOT WITH COMPLICATION Physical Exam Vital Signs: Temp Pulse Resp BP Pulse Ox 98.4 F 88 16 153/78 H 94 03/29/20 04:11 03/29/20 07:00 03/29/20 04:11 03/29/20 04:11 03/29/20 04:11 Intake & Output 03/28/20 03/29/20 03/30/20 06:59 06:59 06:59 Intake Total 4300 2260 1065 Output Total 4075 2450 1000 Balance 225 -190 65 Weight 126.9 kg 134.2 kg 134.2 kg Additional comments: General: well appearing man in NAD, talkative, pleasant, in good spirits Head: normocephalic, atraumatic Eyes: anicteric sclera ENT: moist mucus memranes, no oropharyngeal erythema/exudate Neck: no lymphadenopathy Lungs: clear to auscultation bilaterally Heart: regular rate and rhythm, no murmurs/rubs/gallops Abdomen: normoactive bowel sounds, soft, non-tender, non-distended : no CVA tenderness, no suprapubic tenderness Extremities: s/p R BKA (bandages not removed), warm and well perfused Neuro: A&Ox3 Results Laboratory Results: 03/27/20 09:36 03/28/20 07:33 03/23/20 03/26/20 04:37 08:05 Creatine Kinase 46 L 181 H Impressions: Foot X-Ray 03/22/20 11:54 IMPRESSION: Soft tissue air concerning for infection with a gas producing organism. Lower Extremity CT 03/22/20 13:26 IMPRESSION: Deep-seated wound infection without evidence of organized abscess or osteomyelitis. Assessment and Plan - Plan Summary Summary: Necrotizing fasciitis of RLE: developed gas gangrene secondary to trauma from stepping on a nail. Has been to the OR several times during this hospitalization. BKA performed on 03/26/2020 and wound closure performed 03/27/2020. Surgery following and managing. - Deep wound cultures are growing Clostridium perfringens, Clostridium Sodelli, Enterobacter, bacillus species, and Aeromonas - Initially was on vancomycin, Zosyn and completed 48 hours of clindamycin. The n vancomycin and meropenem. ID was consulted and recommended end date of treatment of 03/29/2020 given source control achieved surgically. We had to to discontinue vancomycin as patient's renal function began to worsen. Currently on meropenem with linezolid in place of vanc. Will plan to continue for at least another 24 hours as surgery is concerned for cellulitis at site of wound closure today. - will need ongoing PT to assess mobility and prepare patient for discharge home (he has several stairs to get into his house), and will need DME prior to discharge uncontrolled pain: due to multiple surgeries and stump edema. He notes that it is painful to wear knee immobilizer due to pressure. - will adjust pain meds - continue Dilaudid IV PRN breakthrough pain - Toradol discontinued in the s/o SHELBY SHELBY (acute kidney injury): Creatinine has been slowly trending up during hospitalization. - recheck BMP in AM - continue to hold Vanc/Toradol - encourage oral hydration, hold off on IVF - avoid nephrotoxins uncontrolled diabetes mellitus type II complicated by hyperglycemia (new diagnosis this admission): Hemoglobin A1c is 13.5 - counseled on weight loss, carb controlled diet, insulin usage - increase Lantus from 10 to 15 units q12 (plan to switch to daily dosing on discharge) - Continue Accu-Cheks and sliding scale. - Counseled by simulation educator essential hypertension: uncontrolled, potentially exacerbated by uncontrolled pain - increase Nifed from 30 to 60 mg HS yesterday - avoid FIONA/ARB in the s/o SHELBY, but would benefit from addition of one of these in the outpatient setting given concurrent DM2 Morbid obesity with BMI of 40.0-44.9, adult - counseled on diet/exercise and weight loss - Time Time Spent with patient: 35 or more minutes Anticipated Discharge Disposition: Home, Self Care Anticipated Discharge Timeframe: within 48 hours
[2020-03-29] MEDS: ATORVASTATIN CALCIUM 40 MG TABLET PO SCH (22:11)
[2020-03-29] MEDS: LINEZOLID 600 MG/300 ML RTUPB IV SCH (23:04)
[2020-03-30] MEDS: OXYCODONE HCL IR 5 MG TABLET PO PRN ×4 (03:45→20:02)
[2020-03-30] MEDS: MEROPENEM 1 GM in NORMAL SALINE 50 ML IV SCH ×2 (05:19→15:41)
[2020-03-30] MEDS: GABAPENTIN 100 MG CAPSULE PO SCH ×2 (05:19→14:59)
[2020-03-30] MEDS: HYDROMORPHONE HCL INJ/PF 2 MG/ML AMPULE IV PRN ×3 (06:10→18:23)
[2020-03-30 07:01] LABS: HEMATOCRIT 35.6 % (37.9-51.0); MEAN CORPUSCULAR HEMOGLOBIN 29.6 pg (27.0-33.4); MEAN CORPUSCULAR HGB CONC 33.8 g/dL (32.0-36.0); MEAN CORPUSCULAR VOLUME 88 fl (80-97); PLATELET COUNT 385 10^3/uL (150-450); RED BLOOD COUNT 4.06 10^6/uL (4.35-5.55); RED CELL DISTRIBUTION WIDTH 12.6 % (11.5-14.0); WHITE BLOOD COUNT 11.6 10^3/uL (4.0-10.5)
[2020-03-30 07:24] LABS: ANION GAP 9 (5-19); BLOOD UREA NITROGEN 13 mg/dL (7-20); CALCIUM 8.7 mg/dL (8.4-10.2); CARBON DIOXIDE 32 mmol/L (22-30); CHLORIDE 93 mmol/L (98-107); GLUCOSE 168 mg/dL (75-110); POTASSIUM 4.3 mmol/L (3.6-5.0)
[2020-03-30] MEDS: FAMOTIDINE 20 MG TABLET PO SCH (09:10)
[2020-03-30] MEDS: LINEZOLID 600 MG/300 ML RTUPB IV SCH (09:11)
[2020-03-30] MEDS: NIFEDIPINE 30 MG TAB.ER.24 PO SCH (09:11)
[2020-03-30] MEDS: INSULIN LISPRO 100 UNIT/ML 3 ML VIAL SUBCUT SCH ×3 (09:11→16:12)
[2020-03-30] MEDS: OXYCODONE HCL SR 10 MG TABLET PO SCH (09:11)
[2020-03-30] MEDS: INSULIN GLARGINE,HUM.REC.ANLOG 1,000 UNIT/10 ML VIAL SUBCUT SCH (09:12)
[2020-03-30] MEDS: DOCUSATE SODIUM 100 MG CAPSULE PO SCH ×2 (09:28→17:10)
--- NOTE | 2020-03-30 19:42 | PDOC PROGRESS REPORT ---
Subjective Progress Note for:: 03/30/20 Subjective:: Feeling down and depressed due to being told that he will need further surgeries on his BKA. Reason For Visit: PUNCTURE WOUND OF RIGHT FOOT WITH COMPLICATION Physical Exam Vital Signs: Temp Pulse Resp BP Pulse Ox 97.7 F 92 12 145/75 H 94 03/30/20 15:59 03/30/20 15:59 03/30/20 15:59 03/30/20 15:59 03/30/20 15:59 Intake & Output 03/29/20 03/30/20 03/31/20 06:59 06:59 06:59 Intake Total 2310 2570 350 Output Total 2450 2000 1360 Balance -140 570 -1010 Weight 134.2 kg 135.6 kg Additional comments: General: anxious Head: normocephalic, atraumatic Eyes: anicteric sclera ENT: moist mucus memranes, no oropharyngeal erythema/exudate Neck: no lymphadenopathy Lungs: clear to auscultation bilaterally Heart: regular rate and rhythm, no murmurs/rubs/gallops Abdomen: normoactive bowel sounds, soft, non-tender, non-distended : no CVA tenderness, no suprapubic tenderness Extremities: s/p R BKA with increasing edema/erythema Neuro: A&Ox3 Results Laboratory Results: 03/30/20 05:56 03/30/20 05:56 03/30/20 03/30/20 05:56 05:56 WBC 11.6 H RBC 4.06 L Hgb 12.0 L Hct 35.6 L MCV 88 MCH 29.6 MCHC 33.8 RDW 12.6 Plt Count 385 Sodium 134.1 L Potassium 4.3 Chloride 93 L Carbon Dioxide 32 H Anion Gap 9 BUN 13 Creatinine 1.31 H Est GFR ( Amer) > 60 Glucose 168 H Calcium 8.7 03/23/20 03/26/20 04:37 08:05 Creatine Kinase 46 L 181 H Impressions: Foot X-Ray 03/22/20 11:54 IMPRESSION: Soft tissue air concerning for infection with a gas producing organism. Lower Extremity CT 03/22/20 13:26 IMPRESSION: Deep-seated wound infection without evidence of organized abscess or osteomyelitis. Assessment and Plan - Plan Summary Summary: Necrotizing fasciitis of RLE: developed gas gangrene secondary to trauma from stepping on a nail. Has been to the OR several times during this hospitalization. BKA performed on 03/26/2020 and wound closure performed 03/27/2020. Surgery following and managing. - Deep wound cultures are growing Clostridium perfringens, Clostridium Sodelli, Enterobacter, bacillus species, and Aeromonas - Initially was on vancomycin, Zosyn and completed 48 hours of clindamycin. Then vancomycin and meropenem. ID was consulted and recommended end date of treatment of 03/29/2020 given source control achieved surgically. We had to to discontinue vancomycin as patient's renal function began to worsen. Currently on meropenem with linezolid in place of vanc. Will plan to continue as surgery is concerned for cellulitis at site of wound closure and planning to take back to the OR. - will need ongoing PT to assess mobility and prepare patient for discharge home (he has several stairs to get into his house), and will need DME prior to discharge uncontrolled pain: due to multiple surgeries and worsening stump edema. - continue Dilaudid IV PRN breakthrough pain - Toradol discontinued in the s/o SHELBY SHELBY (acute kidney injury): Creatinine has been slowly trending up during hospitalization. - restart IVF - recheck BMP in AM - continue to hold Vanc/Toradol - avoid nephrotoxins uncontrolled diabetes mellitus type II complicated by hyperglycemia (new diagnosis this admission): Hemoglobin A1c is 13.5 - counseled on weight loss, carb controlled diet, insulin usage - Continue Accu-Checks, Lantus and SSI - Counseled by music education adjunct professor essential hypertension: uncontrolled, potentially exacerbated by uncontrolled pain - increase Nifed from 30 to 60 mg HS on 03/28 - avoid FIONA/ARB in the s/o SHELBY, but would benefit from addition of one of these in the outpatient setting given concurrent DM2 Morbid obesity with BMI of 40.0-44.9, adult - counseled on diet/exercise and weight loss - Time Time Spent with patient: 35 or more minutes Anticipated Discharge Disposition: Home, Self Care Anticipated Discharge Timeframe: within 72 hours
[2020-03-30] MEDS ORDERED: PROPOFOL INJ 200 MG/20 ML VIAL IV ONE (21:14)
[2020-03-30] MEDS ORDERED: MIDAZOLAM 2 MG/2 ML INJ ONE (21:14)
[2020-03-30] MEDS ORDERED: HYDROMORPHONE HCL INJ/PF 2 MG/ML AMPULE ONE (21:14)
[2020-03-30] MEDS ORDERED: LIDOCAINE 2% INJ-PF (20 MG/ML) 10 ML AMPUL ONE (21:14)
[2020-03-30] MEDS ORDERED: ONDANSETRON HCL INJ/PF 4 MG/2 ML SDV ONE (21:14)
[2020-03-30] MEDS ORDERED: MEPERIDINE HCL/PF INJ 25 MG/1 ML DISP.SYRIN IV PRN (22:14)
[2020-03-30] MEDS ORDERED: PROMETHAZINE HCL INJ 25 MG/1 ML VIAL IV PRN ×2 (22:14)
[2020-03-30] MEDS ORDERED: DIPHENHYDRAMINE HCL 50 MG/ML VIAL IV PRN (22:14)
[2020-03-30] MEDS ORDERED: FENTANYL CITRATE INJ/PF 100 MCG/2 ML AMPUL IV PRN ×3 (22:14)
[2020-03-30] MEDS ORDERED: ONDANSETRON HCL INJ/PF 4 MG/2 ML SDV IV PRN (22:14)
--- NOTE | 2020-03-30 23:28 | Operative Report ---
Operative Report DATE OF SURGERY: 03/30/20 PREOPERATIVE DIAGNOSIS: Infected right below-knee amputation stump POSTOPERATIVE DIAGNOSIS: Same OPERATION: Debridement of right below-knee amputation stump and the stump left open SURGEON: KELSIE SAINZ ANESTHESIA: GA TISSUE REMOVED OR ALTERED: Tibioperoneal bone and muscle questionable viability COMPLICATIONS: None ESTIMATED BLOOD LOSS: 100 cc QUANTITATIVE BLOOD LOSS: 100 INTRAOPERATIVE FINDINGS: Some of the muscle appears to be partially vanesa scularized. The anterior skin is dark reddish discoloration .There is small amount of hematoma and some of it was sent for culture PROCEDURE: After adequate general anesthesia patient was placed in supine position and the right BKA stump and thigh were then prepped and draped in the usual sterile fashion. Appropriate timeout was then called. Next all the courtney were then removed and there was some small amount of liquid hematoma was noted. Some of this was sent for culture. Sutures on the fascia were then divided with scissors. The stump was then laid open. Anterior part of this skin was quite erythematous. About a 1-1/2 cm of the skin was then divided to more proximal area. There was a good amount of blood flow on the skin edges this time. The anterior surface of the muscle areas were then sharply divided with a knife. There was noted to be marginally viable. The one that was left was with good bleeding and the bleeders were clamped suture ligated with 2-0 Vicryl sutures and some ligated with 2-0 Vicryl ties. This was done along the surface of the posterior and anterior muscular areas. The tibial bone was then divided with saw to about 2 cm more proximal. The edges were then rasped the finger smoothness. The fibula also divided just a little bit shorter than the tibia with a same portable's saw. Hemostasis was further obtained with cautery. There was peroneal artery bleeder through the fibula was divided and this was then clamped and suture ligated with 2-0 Vicryl sutures. Stump was then irrigated with saline solution. All the muscle appeared to be viable pink. Skin edges good blood supply though the distal part of the anterior and posterior is still slightly erythematous. A piece of Xeroform gauze was then placed on top of the open stump and subsequently covered with sterile 4 x 4 ABD and wrapped with Kerlix and Idris bandage. Patient tolerated procedure well and brought to the recovery room extubated in satisfactory condition. The plan is for possible closure of the stump after 2 to 3 days.
[2020-03-31] MEDS: INSULIN LISPRO 100 UNIT/ML 3 ML VIAL SUBCUT SCH ×7 (00:12→21:54)
[2020-03-31] MEDS: MEROPENEM 1 GM in NORMAL SALINE 50 ML IV SCH ×4 (00:19→22:06)
[2020-03-31] MEDS: NIFEDIPINE 30 MG TAB.ER.24 PO SCH ×3 (00:20→22:41)
[2020-03-31] MEDS: INSULIN GLARGINE,HUM.REC.ANLOG 1,000 UNIT/10 ML VIAL SUBCUT SCH ×3 (00:20→22:07)
[2020-03-31] MEDS: FAMOTIDINE 20 MG TABLET PO SCH ×3 (00:21→22:06)
[2020-03-31] MEDS: OXYCODONE HCL SR 10 MG TABLET PO SCH ×3 (00:21→22:06)
[2020-03-31] MEDS: HYDROMORPHONE HCL INJ/PF 2 MG/ML AMPULE IV PRN ×4 (00:21→20:16)
[2020-03-31] MEDS: GABAPENTIN 100 MG CAPSULE PO SCH ×4 (00:21→22:06)
[2020-03-31] MEDS: LINEZOLID 600 MG/300 ML RTUPB IV SCH ×3 (00:21→22:07)
[2020-03-31] MEDS: ATORVASTATIN CALCIUM 40 MG TABLET PO SCH ×2 (00:21→22:06)
[2020-03-31] MEDS: NORMAL SALINE 1000 ML 1,000 ML IV PRN ×2 (00:22→16:23)
[2020-03-31] MEDS: OXYCODONE HCL IR 5 MG TABLET PO PRN ×4 (02:04→23:52)
[2020-03-31 10:05] LABS: ABSOLUTE EOSINOPHILS # (AUTO) 0.2 10^3/uL (0.0-0.6); ABSOLUTE LYMPHOCYTES (AUTO) 1.8 10^3/uL (0.5-4.7); ABSOLUTE MONOCYTES (AUTO) 1.3 10^3/uL (0.1-1.4); ABSOLUTE NEUT (AUTO) 9.7 10^3/uL (1.7-8.2); BASOPHILS % (AUTO) 0.3 % (0-2); EOSINOPHILS % (AUTO) 1.7 % (0-6); HEMATOCRIT 32.1 % (37.9-51.0); HEMOGLOBIN 10.7 g/dL (13.5-17.0); LYMPHOCYTES % (AUTO) 14.1 % (13-45); MEAN CORPUSCULAR HEMOGLOBIN 29.3 pg (27.0-33.4); MEAN CORPUSCULAR HGB CONC 33.3 g/dL (32.0-36.0); MEAN CORPUSCULAR VOLUME 88 fl (80-97); MONOCYTES % (AUTO) 9.6 % (3-13); PLATELET COUNT 441 10^3/uL (150-450); RED BLOOD COUNT 3.65 10^6/uL (4.35-5.55); RED CELL DISTRIBUTION WIDTH 12.8 % (11.5-14.0); SEGMENTED NEUTROPHILS % (AUTO) 74.3 % (42-78); TOTAL CELLS COUNTED % (AUTO) 100 %; WHITE BLOOD COUNT 13.1 10^3/uL (4.0-10.5)
[2020-03-31] MEDS: DOCUSATE SODIUM 100 MG CAPSULE PO SCH ×2 (10:10→17:40)
[2020-03-31 10:13] LABS: INTERNATIONAL RATION (INR) 1.08; PROTHROMBIN TIME 14.2 SEC (11.4-15.4)
[2020-03-31 10:14] LABS: PARTIAL THROMBOPLASTIN TIME 37.5 SEC (23.5-35.8)
[2020-03-31 10:16] LABS: D-DIMER 1.08 ug/mL (0.00-0.50)
[2020-03-31 10:24] LABS: ALBUMIN 2.9 g/dL (3.5-5.0); ALKALINE PHOSPHATASE 56 U/L (38-126); ANION GAP 9 (5-19); ASPARTATE AMINO TRANSFERASE 34 U/L (17-59); BILIRUBIN,DIRECT 0.3 mg/dL (0.0-0.4); BILIRUBIN,TOTAL 0.6 mg/dL (0.2-1.3); BLOOD UREA NITROGEN 13 mg/dL (7-20); CALCIUM 8.1 mg/dL (8.4-10.2); CARBON DIOXIDE 34 mmol/L (22-30); CHLORIDE 92 mmol/L (98-107); GLUCOSE 177 mg/dL (75-110); POTASSIUM 4.2 mmol/L (3.6-5.0); TOTAL PROTEIN 5.7 g/dL (6.3-8.2)
[2020-03-31 10:41] LABS: ERYTHROCYTE SEDIMENTATION RATE 82 mm/hr (0-20)
[2020-03-31 10:47] LABS: C-REACTIVE PROTEIN 180.7 mg/L (<10.0)
[2020-03-31] MEDS ORDERED: HYDROMORPHONE HCL INJ/PF 2 MG/ML AMPULE ONE (16:11)
[2020-03-31] MEDS ORDERED: HYDROMORPHONE HCL INJ/PF 2 MG/ML AMPULE IV PRN ×2 (16:21→17:00)
--- NOTE | 2020-03-31 16:44 | PDOC PROGRESS REPORT ---
Subjective Progress Note for:: 03/31/20 Subjective:: General appears depressed, complains of right BKA stump discomfort Reason For Visit: PUNCTURE WOUND OF RIGHT FOOT WITH COMPLICATION Physical Exam Vital Signs: Temp Pulse Resp BP Pulse Ox 97.8 F 101 H 19 148/83 H 92 03/31/20 11:40 03/31/20 11:40 03/31/20 11:40 03/31/20 11:40 03/31/20 11:40 Intake & Output 03/30/20 03/31/20 04/01/20 06:59 06:59 06:59 Intake Total 2570 3400 2080 Output Total 1999 2660 1025 Balance 158 024 4959 Weight 135.6 kg 135 kg General appearance: PRESENT: no acute distress, obese Extremities exam: PRESENT: other - Right BKA stump = dusky discoloration with diffuse erythema of the skin edges of the open BKA stump, underlying muscle dusky as per necrosis, actively bleeding vessels from the muscle tissue, painful at touch Results Laboratory Results: 03/31/20 09:54 03/31/20 09:54 03/31/20 03/31/20 03/31/20 09:54 09:54 09:54 WBC 13.1 H RBC 3.65 L Hgb 10.7 L Hct 32.1 L MCV 88 MCH 29.3 MCHC 33.3 RDW 12.8 Plt Count 441 Seg Neutrophils % 74.3 Sodium 134.5 L Potassium 4.2 Chloride 92 L Carbon Dioxide 34 H Anion Gap 9 BUN 13 Creatinine 1.22 Est GFR ( Amer) > 60 Glucose 177 H Lactic Acid 0.9 Calcium 8.1 L Magnesium 2.3 Total Bilirubin 0.6 AST 34 Alkaline Phosphatase 56 C-Reactive Protein 180.7 H Total Protein 5.7 L Albumin 2.9 L 03/30/20 22:17 Leg - Right Gram Stain - Final 03/23/20 03/26/20 04:37 08:05 Creatine Kinase 46 L 181 H Impressions: Foot X-Ray 03/22/20 11:54 IMPRESSION: Soft tissue air concerning for infection with a gas producing organism. Lower Extremity CT 03/22/20 13:26 IMPRESSION: Deep-seated wound infection without evidence of organized abscess or osteomyelitis. 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 after midnight Conversation has been entertained with the patient and his sister about the need for further debridements of the BKA site Mayes and next week. Potentially, patient might require a AKA in the near future if there is not enough skin left to close the BKA site
[2020-03-31] MEDS ORDERED: HYDROMORPHONE HCL INJ/PF 2 MG/ML AMPULE IV ONE (17:00)
--- NOTE | 2020-03-31 18:15 | PDOC PROGRESS REPORT ---
Subjective Progress Note for:: 03/31/20 Subjective:: He is having increasing pain at RLE surgical site. Per surgery, the site appears necrotic and will need further debridement. Patient is anxious about the possibility of needing an AKA. Reason For Visit: PUNCTURE WOUND OF RIGHT FOOT WITH COMPLICATION Physical Exam Vital Signs: Temp Pulse Resp BP Pulse Ox 99.4 F 107 H 19 141/90 H 96 03/31/20 16:37 03/31/20 16:37 03/31/20 16:37 03/31/20 16:37 03/31/20 16:37 Intake & Output 03/30/20 03/31/20 04/01/20 06:59 06:59 06:59 Intake Total 2570 3400 2080 Output Total 1999 2660 1025 Balance 834 157 3437 Weight 135.6 kg 135 kg Additional comments: General: anxious Head: normocephalic, atraumatic Eyes: anicteric sclera ENT: moist mucus memranes, no oropharyngeal erythema/exudate Neck: no lymphadenopathy Lungs: clear to auscultation bilaterally Heart: regular rate and rhythm, no murmurs/rubs/gallops Abdomen: obese, normoactive bowel sounds, soft, non-tender, non-distended : no CVA tenderness, no suprapubic tenderness Extremities: R BKA surgical site with increasing edema/erythema Neuro: A&Ox3 Results Laboratory Results: 03/31/20 09:54 03/31/20 09:54 03/31/20 03/31/20 03/31/20 09:54 09:54 09:54 WBC 13.1 H RBC 3.65 L Hgb 10.7 L Hct 32.1 L MCV 88 MCH 29.3 MCHC 33.3 RDW 12.8 Plt Count 441 Seg Neutrophils % 74.3 Sodium 134.5 L Potassium 4.2 Chloride 92 L Carbon Dioxide 34 H Anion Gap 9 BUN 13 Creatinine 1.22 Est GFR ( Amer) > 60 Glucose 177 H Lactic Acid 0.9 Calcium 8.1 L Magnesium 2.3 Total Bilirubin 0.6 AST 34 Alkaline Phosphatase 56 C-Reactive Protein 180.7 H Total Protein 5.7 L Albumin 2.9 L 03/30/20 22:17 Leg - Right Gram Stain - Final 03/23/20 03/26/20 04:37 08:05 Creatine Kinase 46 L 181 H Impressions: Foot X-Ray 03/22/20 11:54 IMPRESSION: Soft tissue air concerning for infection with a gas producing organism. Lower Extremity CT 03/22/20 13:26 IMPRESSION: Deep-seated wound infection without evidence of organized abscess or osteomyelitis. Assessment and Plan - Plan Summary Summary: Necrotizing fasciitis of RLE: developed gas gangrene secondary to trauma from stepping on a nail. Has been to the OR several times during this hospitalization. BKA performed on 03/26/2020 and wound closure performed 03/27/2020. Surgery following and managing. - Deep wound cultures are growing Clostridium perfringens, Clostridium Sodelli, Enterobacter, bacillus species, and Aeromonas - Initially was on vancomycin, Zosyn and completed 48 hours of clindamycin. Th en vancomycin and meropenem. ID was consulted and recommended end date of treatment of 03/29/2020 given source control achieved surgically. We had to to discontinue vancomycin as patient's renal function began to worsen. Currently on meropenem with linezolid in place of vanc. Will plan to continue as surgery is concerned for cellulitis at site of wound and planning to take back to the OR again tomorrow. He may need further amputation of the limb. uncontrolled pain: due to multiple surgeries and worsening stump edema. - continue Dilaudid IV PRN breakthrough pain - Toradol discontinued in the s/o SHELBY SHELBY (acute kidney injury): Creatinine has been slowly trending up during hospitalization. Improved somewhat with initially of IVF, which will continue. - recheck BMP in AM - continue to hold Vanc/Toradol - avoid nephrotoxins uncontrolled diabetes mellitus type II complicated by hyperglycemia (new diagnosis this admission): Hemoglobin A1c is 13.5 - counseled on weight loss, carb controlled diet, insulin usage - Continue Accu-Checks, Lantus and SSI - Counseled by soccer referee essential hypertension: - continue Nifed - avoid FIONA/ARB in the s/o SHELBY, but would benefit from addition of one of these in the outpatient setting given concurrent DM2 Morbid obesity with BMI of 40.0-44.9, adult - counseled on diet/exercise and weight loss DVT ppx: HOLD in preparation for OR tomorrow - Time Time Spent with patient: 35 or more minutes Anticipated Discharge Disposition: Home, Self Care Anticipated Discharge Timeframe: within 72 hours
[2020-04-01] MEDS: HYDROMORPHONE HCL INJ/PF 2 MG/ML AMPULE IV PRN ×5 (00:55→22:06)
[2020-04-01] MEDS: NORMAL SALINE 1000 ML 1,000 ML IV PRN ×2 (00:55→20:04)
[2020-04-01] MEDS: GABAPENTIN 100 MG CAPSULE PO SCH ×3 (05:26→22:07)
[2020-04-01] MEDS: MEROPENEM 1 GM in NORMAL SALINE 50 ML IV SCH ×3 (05:39→22:08)
[2020-04-01] MEDS: INSULIN LISPRO 100 UNIT/ML 3 ML VIAL SUBCUT SCH ×7 (07:48→23:42)
[2020-04-01] MEDS: DOCUSATE SODIUM 100 MG CAPSULE PO SCH ×2 (09:10→17:06)
[2020-04-01] MEDS: FAMOTIDINE 20 MG TABLET PO SCH ×2 (09:38→22:07)
[2020-04-01] MEDS: OXYCODONE HCL SR 10 MG TABLET PO SCH (09:38)
[2020-04-01] MEDS: NIFEDIPINE 30 MG TAB.ER.24 PO SCH ×2 (09:38→22:07)
[2020-04-01] MEDS ORDERED: HYDROMORPHONE HCL INJ/PF 2 MG/ML AMPULE ONE (10:18)
[2020-04-01] MEDS ORDERED: LIDOCAINE 2% INJ-PF (20 MG/ML) 10 ML AMPUL ONE (10:18)
[2020-04-01] MEDS ORDERED: MIDAZOLAM 2 MG/2 ML INJ ONE (10:18)
[2020-04-01] MEDS ORDERED: PROPOFOL INJ 200 MG/20 ML VIAL IV ONE (10:19)
[2020-04-01] MEDS ORDERED: ONDANSETRON HCL INJ/PF 4 MG/2 ML SDV ONE (10:19)
[2020-04-01] MEDS ORDERED: BUPIVACAINE HCL 0.5 % INJ/PF 30 ML SDV ONE (10:29)
[2020-04-01] MEDS ORDERED: LIDOCAINE 1% INJ-PF (10 MG/ML) 30 ML SDV ONE (10:29)
[2020-04-01] MEDS ORDERED: BUPIVACAINE INJ/PF LIPOSOME/PF 266 MG/20 ML SDV ONE (10:32)
[2020-04-01] MEDS ORDERED: ROPIVACAINE HCL 0.5% INJ/PF (5 MG/1 ML) 30 ML SDV ONE (10:36)
[2020-04-01] MEDS: LINEZOLID 600 MG/300 ML RTUPB IV SCH ×2 (11:15→22:08)
[2020-04-01] MEDS ORDERED: ONDANSETRON HCL INJ/PF 4 MG/2 ML SDV IV PRN (11:38)
[2020-04-01] MEDS ORDERED: MEPERIDINE HCL/PF INJ 25 MG/1 ML DISP.SYRIN IV PRN (11:38)
[2020-04-01] MEDS ORDERED: PROMETHAZINE HCL INJ 25 MG/1 ML VIAL IV PRN ×2 (11:38)
[2020-04-01] MEDS ORDERED: FENTANYL CITRATE INJ/PF 100 MCG/2 ML AMPUL IV PRN ×3 (11:38)
[2020-04-01] MEDS ORDERED: DIPHENHYDRAMINE HCL 50 MG/ML VIAL IV PRN (11:38)
[2020-04-01] MEDS ORDERED: ACETAMINOPHEN 325 MG TABLET PO PRN (12:46)
[2020-04-01] MEDS ORDERED: TRAMADOL HCL 50 MG TABLET PO PRN (12:47)
--- NOTE | 2020-04-01 13:13 | Operative Report ---
Operative Report DATE OF SURGERY: 04/01/20 PREOPERATIVE DIAGNOSIS: Right foot clostridial gas gangrene; status post right guillotine BKA; S/p BKA; s/p BKA wound exploration and debridement POSTOPERATIVE DIAGNOSIS: Same, necrotic BKA wound edges OPERATION: Right BKA wound exploration, full-thickness BKA skin debridement, jet lavage, application of wound VAC SURGEON: CRISTINA MORENO ANESTHESIA: GA TISSUE REMOVED OR ALTERED: Skin of the BKA flaps, specimens of subcutaneous tissue and muscle sent for culture and Gram stain COMPLICATIONS: None ESTIMATED BLOOD LOSS: 40 mL INTRAOPERATIVE FINDINGS: Ischemic posterior BKA skin flaps; large amount of blood clot within the muscle planes; viable anterior and posterior leg muscles; PROCEDURE: The procedure was done in the operating room, general anesthesia was induced by endotracheal intubation, the right BKA stump and thigh were prepped and draped in the usual fashion. Exploration of the already open BKA wound demonstrated ischemia of the distal aspect of the anterior and posterior BKA skin flaps. These were refreshed with a #10 blade which she was used to circumferentially excise the skin for about 1 cm in thickness. After this, the wound edges were explored and found to be actively bleeding. The bleeding points were cauterized with Bovie. The muscle planes of the BKA wound were also examined, a large amount of blood clot located in between the muscle planes was removed, all muscles were tested with Bovie and found to contract under electrical stimulation. Therefore, they were considered viable and no debridement was performed. Jet lavage of the entire BKA wound was performed with about 3 L of normal saline until clear, local bleeders were cauterized, a large piece of Adaptic was placed on top of the wound followed by a WoundVac laureano sponge, and Tegaderm. The suction cup of the wound VAC was applied to an open area of the Tegaderm and connected to -125 mm negative pressure with good vacuum. 1 ABD was applied on top of the proximal leg followed by Coban. The patient tolerated the procedure well, was extubated, and was transferred to the recovery room in satisfactory conditions.
[2020-04-01] MEDS: INSULIN GLARGINE,HUM.REC.ANLOG 1,000 UNIT/10 ML VIAL SUBCUT SCH ×2 (13:46→23:43)
[2020-04-01] MEDS ORDERED: OXYCODONE HCL IR 5 MG TABLET PO PRN (15:13)
[2020-04-01] MEDS: OXYCODONE HCL IR 5 MG TABLET PO PRN ×3 (15:28→23:43)
--- NOTE | 2020-04-01 18:37 | PDOC PROGRESS REPORT ---
Subjective Progress Note for:: 04/01/20 Subjective:: Patient is a 49-year-old male with a past medical history of uncontrolled diabetes mellitus and morbid obesity who was admitted 03/22/2020 with Gas gangrene to the right foot following stepping on nail. He did receive tetanus immunization as outpatient prior to presenting to the emergency department. He has now undergone right BKA and numerous debridement surgeries. Patient was seen on afternoon rounds following return from the OR where he underwent additional debridement and placement of wound VAC. Patient reports that his pain is adequately controlled at the moment; received nerve block postoperatively, however, does continue to have essentially uncontrolled pain due to throbbing and pressure. Patient is quite gregarious and makes numerous jokes today; states that this is how he is managing his stress and anxiety regarding further potential amputations and potential life threatening illness should the necrotizing fasciitis continue to progress. He is on the phone with a friend during our assessment and they do talk and joke with each other during the assessment. Otherwise, the patient has no complaints. He specifically denies fever, chills, chest pain, palpitations, dyspnea, abdominal pain, nausea and vomiting. He reports good appetite and requests that his n.p.o. status be changed that he can eat his lunch. He has no other questions or concerns at this time. No concerns per nursing. Reason For Visit: PUNCTURE WOUND OF RIGHT FOOT WITH COMPLICATION Physical Exam Vital Signs: Temp Pulse Resp BP Pulse Ox 97.9 F 98 19 158/88 H 100 04/01/20 17:45 04/01/20 17:45 04/01/20 17:45 04/01/20 17:45 04/01/20 17:45 Intake & Output 03/31/20 04/01/20 04/02/20 06:59 06:59 06:59 Intake Total 3400 6460 975 Output Total 2660 6550 950 Balance 740 -90 25 Weight 135 kg 138.4 kg General appearance: PRESENT: no acute distress, cooperative - Gregarious, morbidly obese, well-developed, well-nourished Head exam: PRESENT: atraumatic, normocephalic Eye exam: PRESENT: conjunctiva pink, EOMI, PERRLA. ABSENT: scleral icterus Mouth exam: PRESENT: moist, tongue midline Respiratory exam: PRESENT: clear to auscultation so, symmetrical, unlabored. ABSENT: rales, rhonchi, wheezes Cardiovascular exam: PRESENT: RRR, +S1, +S2. ABSENT: diastolic murmur, rubs, systolic murmur Vascular exam: PRESENT: normal capillary refill Extremities exam: PRESENT: full ROM, tenderness - Right lower extremity. ABSENT: calf tenderness, clubbing, pedal edema Neurological exam: PRESENT: alert, awake, oriented to person, oriented to place, oriented to time, oriented to situation, CN II-XII grossly intact. ABSENT: motor sensory deficit Psychiatric exam: PRESENT: appropriate affect, normal mood. ABSENT: homicidal ideation, suicidal ideation Skin exam: PRESENT: dry, warm, other - Right BKA; surgical site with large wound VAC dressing in place; scant surrounding erythema, continues to appear edematous. ABSENT: cyanosis, rash Results Laboratory Results: 03/31/20 09:54 03/31/20 09:54 03/30/20 22:17 Leg - Right Gram Stain - Final 03/23/20 03/26/20 04:37 08:05 Creatine Kinase 46 L 181 H Impressions: Foot X-Ray 03/22/20 11:54 IMPRESSION: Soft tissue air concerning for infection with a gas producing organism. Lower Extremity CT 03/22/20 13:26 IMPRESSION: Deep-seated wound infection without evidence of organized abscess or osteomyelitis. Assessment and Plan - Diagnosis (1) Necrotizing fasciitis of lower leg Is this a current diagnosis for this admission?: Yes Plan: Gas gangrene secondary to trauma from stepping on a nail Has been to the OR several times during this hospitalization. Initial operative intervention 03/22/20. Wound debridement on 03/23/20. BKA performed on 03/26/2020. Additional surgical debridement on 03/27/20. 03/30/20, and 04/01/20. Deep wound cultures are growing Clostridium perfringens, Clostridium Sodelli, Enterobacter, bacillus species, and Aeromonas Most recent wound cultures positive for Enterobacter cloacae and Clostridium perfringens Additional wound cultures pending. Surgery following and managing Initially was on vancomycin, Zosyn and completed 48 hours of clindamycin. Then vancomycin and meropenem. Vancomycin then discontinued r/t SHELBY. Have started Linezolid (03/27/20). ID was consulted and made recommendations for ABX. Also indicates end date of treatment of 03/29/2020 given source control achieved. As source control is not assured (continued progression of necrosis necessitating additional debridement and possible further amputation); will re-consult ID. ? benefit of Rifampin, although patient does not have MRSA Pain medications as below. (2) Uncontrolled pain Is this a current diagnosis for this admission?: Yes Plan: Patient with continued pain; understandably given the size of his wound and continued edema. Continue Tylenol 650 every 4 as needed Gabapentin 200 mg every 8 hours scheduled Oxycodone 5-10 mg as needed IV Dilaudid 0.25 mg IV every 4 as needed breakthrough pain (3) Uncontrolled diabetes mellitus Qualifiers: Diabetes mellitus type: type 2 Glycemic state: with hyperglycemia Qualified Code(s): E11.65 - Type 2 diabetes mellitus with hyperglycemia Is this a current diagnosis for this admission?: Yes Plan: Hemoglobin A1c 13.5% Patient is placed on a consistent carb diet. Humalog 6 units AC Lantus 15 units every 12 Accu-Cheks before meals and at bedtime with Humalog for sliding scale coverage. Hypoglycemia protocol in place. Registered dietitian healthcare educator consulted. (4) Essential hypertension Is this a current diagnosis for this admission?: Yes Plan: Continued elevated blood pressures. Ensure adequate pain management. Continue Procardia 60 mg every 12 hours avoid FIONA/ARB in the s/o SHELBY, but would benefit from addition of one of these in the outpatient setting given concurrent DM2 IV hydralazine as needed for blood pressure control. (5) SHELBY (acute kidney injury) Is this a current diagnosis for this admission?: Yes Plan: Waxing and waning; Cr 0.65-> 1.31-> 1.18-> 1.31->1.22 Has been on fluids IV for most of his hospitalization. CK is not impressive. Have discontinued [place] and Vancomycin. Avoid nephrotoxic medications. Renally dosed where appropriate. Continue gentle IVF. Follow chemistries closely. (6) Morbid obesity with BMI of 40.0-44.9, adult Is this a current diagnosis for this admission?: Yes Plan: Dietitian consulted for weight reduction education. Dyslipidemia-we will start patient on atorvastatin especially given calculated ASCVD 10-year risk of 7.6% and diabetes - Time Time Spent with patient: 35 or more minutes Medications reviewed and adjusted accordingly: Yes Anticipated Discharge Disposition: Home with Home Health Anticipated Discharge Timeframe: >72 hrs
[2020-04-01] MEDS: HYDRALAZINE HCL INJ/PF 20 MG/1 ML SDV IV PRN (22:06)
[2020-04-01] MEDS: ATORVASTATIN CALCIUM 40 MG TABLET PO SCH (22:07)
[2020-04-02] MEDS: HYDROMORPHONE HCL INJ/PF 2 MG/ML AMPULE IV PRN ×6 (02:04→22:32)
[2020-04-02] MEDS: OXYCODONE HCL IR 5 MG TABLET PO PRN ×5 (04:11→21:11)
[2020-04-02] MEDS: MEROPENEM 1 GM in NORMAL SALINE 50 ML IV SCH ×3 (06:06→21:10)
[2020-04-02] MEDS: GABAPENTIN 100 MG CAPSULE PO SCH (06:06)
[2020-04-02] MEDS: NORMAL SALINE 1000 ML 1,000 ML IV PRN (06:07)
[2020-04-02 06:15] LABS: ABSOLUTE BASOPHILS # (AUTO) 0.1 10^3/uL (0.0-0.2); ABSOLUTE EOSINOPHILS # (AUTO) 0.3 10^3/uL (0.0-0.6); ABSOLUTE LYMPHOCYTES (AUTO) 2.6 10^3/uL (0.5-4.7); ABSOLUTE MONOCYTES (AUTO) 1.3 10^3/uL (0.1-1.4); BASOPHILS % (AUTO) 0.5 % (0-2); EOSINOPHILS % (AUTO) 2.8 % (0-6); HEMATOCRIT 29.4 % (37.9-51.0); LYMPHOCYTES % (AUTO) 22.8 % (13-45); MEAN CORPUSCULAR HEMOGLOBIN 29.9 pg (27.0-33.4); MEAN CORPUSCULAR HGB CONC 33.9 g/dL (32.0-36.0); MEAN CORPUSCULAR VOLUME 88 fl (80-97); MONOCYTES % (AUTO) 11.4 % (3-13); PLATELET COUNT 482 10^3/uL (150-450); RED BLOOD COUNT 3.34 10^6/uL (4.35-5.55); RED CELL DISTRIBUTION WIDTH 12.5 % (11.5-14.0); SEGMENTED NEUTROPHILS % (AUTO) 62.5 % (42-78); TOTAL CELLS COUNTED % (AUTO) 100 %; WHITE BLOOD COUNT 11.2 10^3/uL (4.0-10.5)
[2020-04-02 06:38] LABS: ALBUMIN 2.7 g/dL (3.5-5.0); ALKALINE PHOSPHATASE 55 U/L (38-126); ANION GAP 7 (5-19); ASPARTATE AMINO TRANSFERASE 28 U/L (17-59); BILIRUBIN,DIRECT 0.3 mg/dL (0.0-0.4); BILIRUBIN,TOTAL 0.5 mg/dL (0.2-1.3); BLOOD UREA NITROGEN 13 mg/dL (7-20); CALCIUM 8.3 mg/dL (8.4-10.2); CARBON DIOXIDE 33 mmol/L (22-30); CHLORIDE 95 mmol/L (98-107); GLUCOSE 192 mg/dL (75-110); POTASSIUM 4.2 mmol/L (3.6-5.0); TOTAL PROTEIN 5.7 g/dL (6.3-8.2)
[2020-04-02] MEDS: ENOXAPARIN SODIUM INJ 40 MG/0.4 ML DISP.SYRIN SUBCUT SCH ×2 (07:52→10:01)
[2020-04-02] MEDS: INSULIN LISPRO 100 UNIT/ML 3 ML VIAL SUBCUT SCH ×7 (07:59→21:12)
[2020-04-02] MEDS: LINEZOLID 600 MG/300 ML RTUPB IV SCH ×2 (10:01→22:31)
[2020-04-02] MEDS: FAMOTIDINE 20 MG TABLET PO SCH ×2 (10:02→21:11)
[2020-04-02] MEDS: DOCUSATE SODIUM 100 MG CAPSULE PO SCH ×2 (10:02→17:07)
[2020-04-02] MEDS: INSULIN GLARGINE,HUM.REC.ANLOG 1,000 UNIT/10 ML VIAL SUBCUT SCH ×2 (10:02→21:12)
[2020-04-02] MEDS: NIFEDIPINE 30 MG TAB.ER.24 PO SCH ×2 (10:08→21:11)
--- NOTE | 2020-04-02 12:16 | PDOC PROGRESS REPORT ---
Subjective Progress Note for:: 04/02/20 Reason For Visit: PUNCTURE WOUND OF RIGHT FOOT WITH COMPLICATION Physical Exam Vital Signs: Temp Pulse Resp BP Pulse Ox 97.5 F 87 18 146/72 H 97 04/02/20 07:58 04/02/20 07:36 04/02/20 07:36 04/02/20 07:36 04/02/20 07:36 Intake & Output 04/01/20 04/02/20 04/03/20 06:59 06:59 06:59 Intake Total 6460 1636 236 Output Total 6560 9111 8165 Balance -00 -0723 -3471 Weight 138.4 kg 134.1 kg Results Laboratory Results: 04/02/20 05:39 04/02/20 05:39 04/02/20 04/02/20 05:39 05:39 WBC 11.2 H RBC 3.34 L Hgb 10.0 L Hct 29.4 L MCV 88 MCH 29.9 MCHC 33.9 RDW 12.5 Plt Count 482 H Seg Neutrophils % 62.5 Sodium 134.7 L Potassium 4.2 Chloride 95 L Carbon Dioxide 33 H Anion Gap 7 BUN 13 Creatinine 1.23 Est GFR ( Amer) > 60 Glucose 192 H Calcium 8.3 L Total Bilirubin 0.5 AST 28 Alkaline Phosphatase 55 Total Protein 5.7 L Albumin 2.7 L 03/30/20 22:17 Leg - Right Gram Stain - Final 03/23/20 03/26/20 04:37 08:05 Creatine Kinase 46 L 181 H Impressions: Foot X-Ray 03/22/20 11:54 IMPRESSION: Soft tissue air concerning for infection with a gas producing organism. Lower Extremity CT 03/22/20 13:26 IMPRESSION: Deep-seated wound infection without evidence of organized abscess or osteomyelitis. Assessment & Plan - Diagnosis (1) Necrotizing fasciitis of lower leg Is this a current diagnosis for this admission?: Yes - Time Anticipated Discharge Disposition: Unknown Anticipated Discharge Timeframe: unknown - Plan Summary Plan Summary: 49-year-old male status post repeat debridement of right BKA stump for continued infection. The patient reports pain in his right lower extremity today (burning and tingling). Currently there is a wound VAC over the open BKA stump. The wound VAC dressing appears intact, and it was not taken down. Externally, there is no obvious necrosis. I will add ibuprofen 800 mg 3 times daily. I will increase his Neurontin to 300 mg 3 times daily in an effort to relieve his neuropathic pain. Plan is for takedown of the wound VAC in 24 to 48 hours, in the OR. Further plans will be made once his wound is reassessed. Continue with current therapy for now.
[2020-04-02] MEDS ORDERED: GABAPENTIN 100 MG CAPSULE PO SCH (14:00)
[2020-04-02] MEDS: GABAPENTIN 300 MG CAPSULE PO SCH ×2 (14:13→21:11)
--- NOTE | 2020-04-02 15:40 | PDOC PROGRESS REPORT ---
Subjective Progress Note for:: 04/02/20 Subjective:: Patient admitted with gas gangrene to the right foot following a stepped on a nail. Now status post right BKA and numerous debridements surgeries. There is no new complaints right Reason For Visit: PUNCTURE WOUND OF RIGHT FOOT WITH COMPLICATION Physical Exam Vital Signs: Temp Pulse Resp BP Pulse Ox 97.8 F 75 18 150/84 H 97 04/02/20 11:07 04/02/20 11:07 04/02/20 11:07 04/02/20 11:07 04/02/20 11:07 Intake & Output 04/01/20 04/02/20 04/03/20 06:59 06:59 06:59 Intake Total 6460 6875 1536 Output Total 6550 9200 9835 Balance -90 -9359 -839 Weight 138.4 kg 134.1 kg General appearance: PRESENT: no acute distress, obese Head exam: PRESENT: atraumatic, normocephalic Eye exam: PRESENT: conjunctiva pink, EOMI, PERRLA. ABSENT: scleral icterus Ear exam: PRESENT: normal external ear exam Mouth exam: PRESENT: moist, tongue midline Neck exam: ABSENT: carotid bruit, JVD, lymphadenopathy, thyromegaly Respiratory exam: PRESENT: clear to auscultation so. ABSENT: rales, rhonchi, wheezes Cardiovascular exam: PRESENT: RRR, +S1, +S2. ABSENT: diastolic murmur, rubs, systolic murmur Pulses: PRESENT: normal dorsalis pedis pul Vascular exam: PRESENT: normal capillary refill GI/Abdominal exam: PRESENT: normal bowel sounds, soft. ABSENT: distended, guarding, mass, organolmegaly, rebound, tenderness Rectal exam: PRESENT: deferred Extremities exam: PRESENT: other - R BKA. ABSENT: calf tenderness, clubbing, pedal edema Neurological exam: PRESENT: alert, awake, oriented to person, oriented to place, oriented to time, oriented to situation, CN II-XII grossly intact. ABSENT: motor sensory deficit Psychiatric exam: PRESENT: appropriate affect, normal mood. ABSENT: homicidal ideation, suicidal ideation Skin exam: PRESENT: dry, intact, warm. ABSENT: cyanosis, rash Results Laboratory Results: 04/02/20 05:39 04/02/20 05:39 04/02/20 04/02/20 05:39 05:39 WBC 11.2 H RBC 3.34 L Hgb 10.0 L Hct 29.4 L MCV 88 MCH 29.9 MCHC 33.9 RDW 12.5 Plt Count 482 H Seg Neutrophils % 62.5 Sodium 134.7 L Potassium 4.2 Chloride 95 L Carbon Dioxide 33 H Anion Gap 7 BUN 13 Creatinine 1.23 Est GFR ( Amer) > 60 Glucose 192 H Calcium 8.3 L Total Bilirubin 0.5 AST 28 Alkaline Phosphatase 55 Total Protein 5.7 L Albumin 2.7 L 03/30/20 22:17 Leg - Right Gram Stain - Final 03/23/20 03/26/20 04:37 08:05 Creatine Kinase 46 L 181 H Impressions: Foot X-Ray 03/22/20 11:54 IMPRESSION: Soft tissue air concerning for infection with a gas producing organism. Lower Extremity CT 03/22/20 13:26 IMPRESSION: Deep-seated wound infection without evidence of organized abscess or osteomyelitis. Assessment and Plan - Diagnosis (1) Necrotizing fasciitis of lower leg Is this a current diagnosis for this admission?: Yes Plan: Gas gangrene secondary to trauma from stepping on a nail Has been to the OR several times during this hospitalization. Initial operative intervention 03/22/20. Wound debridement on 03/23/20. BKA performed on 03/26/2020. Additional surgical debridement on 03/27/20. 03/30/20, and 04/01/20. Deep wound cultures are growing Clostridium perfringens, Clostridium Sodelli, Enterobacter, bacillus species, and Aeromonas Most recent wound cultures positive for Enterobacter cloacae and Clostridium perfringens Additional wound cultures pending. Surgery following and managing Initially was on vancomycin, Zosyn and completed 48 hours of clindamycin. Then vancomycin and meropenem. Vancomycin then discontinued r/t SHELBY. Have started Linezolid (03/27/20). ID was consulted and made recommendations for ABX. Also indicates end date of treatment of 03/29/2020 given source control achieved. As source control is not assured (continued progression of necrosis necessitating additional debridement and possible further amputation); will re-consult ID. ? benefit of Rifampin, although patient does not have MRSA Pain medications as below. 9/7F/U with ID as needed Surgical plan is for takedown the wound VAC in 24 to 48 hours in the OR and further plans will depend on findings. Continue to adjust analgesic for optimal pain control (2) Essential hypertension Is this a current diagnosis for this admission?: Yes Plan: Continued elevated blood pressures. Ensure adequate pain management. Continue Procardia 60 mg every 12 hour IV hydralazine as needed for blood pressure control. (3) Morbid obesity with BMI of 40.0-44.9, adult Is this a current diagnosis for this admission?: Yes Plan: She will benefit from weight loss (4) Uncontrolled diabetes mellitus Qualifiers: Diabetes mellitus type: type 2 Glycemic state: with hyperglycemia Qualified Code(s): E11.65 - Type 2 diabetes mellitus with hyperglycemia Is this a current diagnosis for this admission?: Yes Plan: Hemoglobin A1c 13.5% Patient is placed on a consistent carb diet. Currently on Humalog 6 units AC and Lantus 15 units every 12 Accu-Cheks before meals and at bedtime with Humalog for sliding scale coverage. Hypoglycemia protocol in place. Registered dietitian life educator consulted. Weight loss strongly encouraged (5) Uncontrolled pain Is this a current diagnosis for this admission?: Yes Plan: Patient with continued pain; continue to adjust analgesia - Time Time Spent with patient: 15-24 minutes Medications reviewed and adjusted accordingly: Yes Anticipated Discharge Disposition: Home with Home Health Anticipated Discharge Timeframe: within 72 hours
[2020-04-02] MEDS: IBUPROFEN 800 MG TABLET PO SCH (16:18)
[2020-04-02] MEDS: ATORVASTATIN CALCIUM 40 MG TABLET PO SCH (21:11)
[2020-04-03] MEDS: OXYCODONE HCL IR 5 MG TABLET PO PRN ×4 (01:21→13:53)
[2020-04-03] MEDS: HYDROMORPHONE HCL INJ/PF 2 MG/ML AMPULE IV PRN ×5 (02:42→20:32)
[2020-04-03] MEDS: NORMAL SALINE 1000 ML 1,000 ML IV PRN ×2 (03:58→23:36)
[2020-04-03] MEDS: MEROPENEM 1 GM in NORMAL SALINE 50 ML IV SCH ×3 (05:34→22:43)
[2020-04-03] MEDS: GABAPENTIN 300 MG CAPSULE PO SCH ×3 (05:36→22:45)
[2020-04-03 05:54] LABS: ABSOLUTE EOSINOPHILS # (AUTO) 0.3 10^3/uL (0.0-0.6); ABSOLUTE LYMPHOCYTES (AUTO) 2.4 10^3/uL (0.5-4.7); ABSOLUTE NEUT (AUTO) 5.4 10^3/uL (1.7-8.2); BASOPHILS % (AUTO) 0.4 % (0-2); EOSINOPHILS % (AUTO) 3.3 % (0-6); HEMATOCRIT 29.7 % (37.9-51.0); HEMOGLOBIN 10.3 g/dL (13.5-17.0); LYMPHOCYTES % (AUTO) 26.5 % (13-45); MEAN CORPUSCULAR HEMOGLOBIN 30.7 pg (27.0-33.4); MEAN CORPUSCULAR HGB CONC 34.8 g/dL (32.0-36.0); MEAN CORPUSCULAR VOLUME 88 fl (80-97); MONOCYTES % (AUTO) 11.2 % (3-13); PLATELET COUNT 512 10^3/uL (150-450); RED BLOOD COUNT 3.37 10^6/uL (4.35-5.55); RED CELL DISTRIBUTION WIDTH 12.5 % (11.5-14.0); SEGMENTED NEUTROPHILS % (AUTO) 58.6 % (42-78); TOTAL CELLS COUNTED % (AUTO) 100 %; WHITE BLOOD COUNT 9.2 10^3/uL (4.0-10.5)
[2020-04-03] MEDS: INSULIN GLARGINE,HUM.REC.ANLOG 1,000 UNIT/10 ML VIAL SUBCUT SCH ×2 (09:27→22:43)
[2020-04-03] MEDS: NIFEDIPINE 30 MG TAB.ER.24 PO SCH ×2 (09:27→22:46)
[2020-04-03] MEDS: LINEZOLID 600 MG/300 ML RTUPB IV SCH ×2 (09:27→23:38)
[2020-04-03] MEDS: FAMOTIDINE 20 MG TABLET PO SCH ×2 (09:28→22:49)
[2020-04-03] MEDS: IBUPROFEN 800 MG TABLET PO SCH ×3 (09:28→17:09)
[2020-04-03] MEDS: ENOXAPARIN SODIUM INJ 40 MG/0.4 ML DISP.SYRIN SUBCUT SCH (09:28)
[2020-04-03] MEDS: INSULIN LISPRO 100 UNIT/ML 3 ML VIAL SUBCUT SCH ×7 (09:29→22:44)
[2020-04-03] MEDS: DOCUSATE SODIUM 100 MG CAPSULE PO SCH ×2 (09:29→17:17)
--- NOTE | 2020-04-03 17:49 | PDOC PROGRESS REPORT ---
Subjective Progress Note for:: 04/03/20 Subjective:: Patient admitted with gas gangrene to the right foot following a stepped on a nail. Now status post right BKA and numerous debridements surgeries. Patient still complaining of substantial pain, phantom pain as well as nerve like discomfort. Looks like most of his meds are ordered as needed and so I will change some to scheduled Reason For Visit: PUNCTURE WOUND OF RIGHT FOOT WITH COMPLICATION Physical Exam Vital Signs: Temp Pulse Resp BP Pulse Ox 98.1 F 83 18 131/62 H 100 04/03/20 11:50 04/03/20 11:50 04/03/20 11:50 04/03/20 11:50 04/03/20 11:50 Intake & Output 04/02/20 04/03/20 04/04/20 06:59 06:59 06:59 Intake Total 6875 5446 1000 Output Total 9200 5620 1075 Balance -2325 -174 -75 Weight 134.1 kg 130.7 kg General appearance: PRESENT: no acute distress, well-developed, well-nourished Head exam: PRESENT: atraumatic, normocephalic Eye exam: PRESENT: conjunctiva pink, EOMI, PERRLA. ABSENT: scleral icterus Ear exam: PRESENT: normal external ear exam Mouth exam: PRESENT: moist, tongue midline Neck exam: ABSENT: carotid bruit, JVD, lymphadenopathy, thyromegaly Respiratory exam: PRESENT: clear to auscultation so. ABSENT: rales, rhonchi, wheezes Cardiovascular exam: PRESENT: RRR, +S1, +S2. ABSENT: diastolic murmur, rubs, systolic murmur Pulses: PRESENT: normal dorsalis pedis pul Vascular exam: PRESENT: normal capillary refill GI/Abdominal exam: PRESENT: normal bowel sounds, soft. ABSENT: distended, guarding, mass, organolmegaly, rebound, tenderness Rectal exam: PRESENT: deferred Extremities exam: PRESENT: full ROM, pedal edema, other - R BKA with wound vac in place. ABSENT: calf tenderness, clubbing Neurological exam: PRESENT: alert, awake, oriented to person, oriented to place, oriented to time, oriented to situation, CN II-XII grossly intact. ABSENT: motor sensory deficit Psychiatric exam: PRESENT: appropriate affect, normal mood. ABSENT: homicidal ideation, suicidal ideation Skin exam: PRESENT: dry, intact, warm. ABSENT: cyanosis, rash Results Laboratory Results: 04/03/20 05:44 04/02/20 05:39 04/03/20 05:44 WBC 9.2 RBC 3.37 L Hgb 10.3 L Hct 29.7 L MCV 88 MCH 30.7 MCHC 34.8 RDW 12.5 Plt Count 512 H Seg Neutrophils % 58.6 03/30/20 22:17 Leg - Right Gram Stain - Final 03/30/20 10:30 Knee - Below Knee Amputation Site Gram Stain - Final 03/30/20 10:30 Knee - Below Knee Amputation Site Wound Culture - Final NO GROWTH 3 DAYS 03/23/20 03/26/20 04:37 08:05 Creatine Kinase 46 L 181 H Impressions: Foot X-Ray 03/22/20 11:54 IMPRESSION: Soft tissue air concerning for infection with a gas producing or ganism. Lower Extremity CT 03/22/20 13:26 IMPRESSION: Deep-seated wound infection without evidence of organized abscess or osteomyelitis. Assessment and Plan - Diagnosis (1) Necrotizing fasciitis of lower leg Is this a current diagnosis for this admission?: Yes Plan: Gas gangrene secondary to trauma from stepping on a nail Has been to the OR several times during this hospitalization. Initial operative intervention 03/22/20. Wound debridement on 03/23/20. BKA performed on 03/26/2020. Additional surgical debridement on 03/27/20. 03/30/20, and 04/01/20. Deep wound cultures are growing Clostridium perfringens, Clostridium Sodelli, Enterobacter, bacillus species, and Aeromonas Most recent wound cultures positive for Enterobacter cloacae and Clostridium perfringens Additional wound cultures pending. Surgery following and managing Initially was on vancomycin, Zosyn and completed 48 hours of clindamycin. Then vancomycin and meropenem. Vancomycin then discontinued r/t SHELBY. Have started Linezolid (03/27/20). ID was consulted and made recommendations for ABX. Also indicates end date of treatment of 03/29/2020 given source control achieved. As source control is not assured (continued progression of necrosis necessitating additional debridement and possible further amputation); will re-consult ID. ? benefit of Rifampin, although patient does not have MRSA Pain medications as below. 9/7F/U with ID as needed Surgical plan is for takedown the wound VAC in 24 to 48 hours in the OR and further plans will depend on findings. Continue to adjust analgesic for optimal pain control 04/03 continue with pain management (2) Essential hypertension Is this a current diagnosis for this admission?: Yes Plan: Continued elevated blood pressures. Ensure adequate pain management. Continue Procardia 60 mg every 12 hour IV hydralazine as needed for blood pressure control. (3) Morbid obesity with BMI of 40.0-44.9, adult Is this a current diagnosis for this admission?: Yes Plan: He will benefit from weight loss (4) Uncontrolled diabetes mellitus Qualifiers: Diabetes mellitus type: type 2 Glycemic state: with hyperglycemia Qualified Code(s): E11.65 - Type 2 diabetes mellitus with hyperglycemia Is this a current diagnosis for this admission?: Yes Plan: Hemoglobin A1c 13.5% Patient is placed on a consistent carb diet. Currently on Humalog 6 units AC and Lantus 15 units every 12 Accu-Cheks before meals and at bedtime with Humalog for sliding scale coverage. Hypoglycemia protocol in place. Registered dietitian talent consultant consulted. Weight loss strongly encouraged (5) Uncontrolled pain Is this a current diagnosis for this admission?: Yes Plan: We will start patient on Medrol in addition to serial both scheduled and continue with as needed. Hopefully this will help to control his pain better. We will also continue with the NSAID - Time Anticipated Discharge Disposition: Home with Home Health Anticipated Discharge Timeframe: within 72 hours
--- NOTE | 2020-04-03 17:51 | PDOC PROGRESS REPORT ---
Subjective Progress Note for:: 04/03/20 Subjective:: Patient comfortable Reason For Visit: PUNCTURE WOUND OF RIGHT FOOT WITH COMPLICATION Physical Exam Vital Signs: Temp Pulse Resp BP Pulse Ox 98.1 F 83 18 131/62 H 100 04/03/20 11:50 04/03/20 11:50 04/03/20 11:50 04/03/20 11:50 04/03/20 11:50 Intake & Output 04/02/20 04/03/20 04/04/20 06:59 06:59 06:59 Intake Total 6875 5446 1000 Output Total 9200 5620 1075 Balance -2325 -174 -75 Weight 134.1 kg 130.7 kg General appearance: PRESENT: no acute distress, obese Extremities exam: PRESENT: other - Right BKA site = wound VAC in place, good seal, good negative pressure, wound edges pink, no erythema, minimal drainage, soft on palpation, decreased edema Results Laboratory Results: 04/03/20 05:44 04/02/20 05:39 04/03/20 05:44 WBC 9.2 RBC 3.37 L Hgb 10.3 L Hct 29.7 L MCV 88 MCH 30.7 MCHC 34.8 RDW 12.5 Plt Count 512 H Seg Neutrophils % 58.6 03/30/20 22:17 Leg - Right Gram Stain - Final 03/30/20 10:30 Knee - Below Knee Amputation Site Gram Stain - Final 03/30/20 10:30 Knee - Below Knee Amputation Site Wound Culture - Final NO GROWTH 3 DAYS 03/23/20 03/26/20 04:37 08:05 Creatine Kinase 46 L 181 H Impressions: Foot X-Ray 03/22/20 11:54 IMPRESSION: Soft tissue air concerning for infection with a gas producing organism. Lower Extremity CT 03/22/20 13:26 IMPRESSION: Deep-seated wound infection without evidence of organized abscess or osteomyelitis. Assessment & Plan - Diagnosis (1) Gas gangrene Is this a current diagnosis for this admission?: Yes (2) Hyperglycemia Is this a current diagnosis for this admission?: Yes (3) Puncture wound of right foot with complication Qualifiers: Qualified Code(s): S91.331A - Puncture wound without foreign body, right foot, initial encounter Is this a current diagnosis for this admission?: Yes - Time Anticipated Discharge Disposition: Home, Self Care Anticipated Discharge Timeframe: When medically stable - Plan Summary Plan Summary: Assessment: S/p right BKA for foot gas gangrene on March 22 S/p BKA closure on March 27 followed by reopening Postop day #2 following debridement of BKA stump BKA stump cultures from 04/01/20 are negative Patient on meropenem and linezolid Physical exam shows right BKA stump soft, no erythema, minimal pain, with healthy skin edges Plan: N.p.o. after midnight Right BKA stump wound VAC replacement in surgery tomorrow Procedure, risks, benefits, explained to the patient, he understands of the above, and decides to proceed
[2020-04-03] MEDS ORDERED: TRAMADOL HCL 50 MG TABLET PO SCH (18:00)
--- NOTE | 2020-04-03 19:30 | Progress Note ---
Provider Note Provider Note: [facility] ID Telephone Advice Consultation Chart reviewed. Patient is a 49-year-old man with DM who recently stepped on a nail and developed an infection on his right foot. He had worsening pain, but no other systemic symptoms. He was admitted on 03/22. X ray of the foot showed soft tissue air. CT scan of the right foot demonstrated deep seated wound infection without abscess formation. He was evaluated by surgery on 03/22 for urgent debridement of the right foot maile to gangrene. On 03/23 he developed ischemia of muscles requiring further surgical intervention. On 03/25 he required BKA. Tissue cultures are polymicrobial including Enterobacter, Aeromonas, Bacillus, Clostridium perfringens, Clostridium sordellii. He was on broad spectrum antibiotics. A recommendations were made about stopping antibiotics after BKA as there was source control, amputation was far from the infection site. However, the surgical site started to look infected. He had wound cultures on 03/30 and 04/01 which are no growth to date. He had I&D on 04/01. There were some blood clots but no purulence. He is currently on linezolid and meropenem awaiting for cultures. ID re-consulted for recommendations. PMH: Diabetes Mellitus Allergies: No Known Allergies Allergy (Unverified 03/22/20 12:56) Medications: No Home Medications 03/22/20 Vital Signs: Temp Pulse Resp BP Pulse Ox 98.1 F 83 18 131/62 H 100 04/03/20 11:50 04/03/20 11:50 04/03/20 11:50 04/03/20 11:50 04/03/20 11:50 Intake & Output 04/02/20 04/03/20 04/04/20 06:59 06:59 06:59 Intake Total 5375 5446 1000 Output Total 9200 5620 1075 Balance -2325 -174 -75 Weight 134.1 kg 130.7 kg Weight/Height Weight 130.7 kg Height 5 ft 9 in Laboratories 04/03/20 05:44 04/02/20 05:39 MCV 88 fl (80-97) 04/03/20 05:44 MCH 30.7 pg (27.0-33.4) 04/03/20 05:44 MCHC 34.8 g/dL (32.0-36.0) 04/03/20 05:44 RDW 12.5 % (11.5-14.0) 04/03/20 05:44 Seg Neutrophils % 58.6 % (42-78) 04/03/20 05:44 Chloride 95 mmol/L (98-107) L 04/02/20 05:39 Carbon Dioxide 33 mmol/L (22-30) H 04/02/20 05:39 Anion Gap 7 (5-19) 04/02/20 05:39 Est GFR ( Amer) > 60 (>60) 04/02/20 05:39 Glucose 192 mg/dL (75-110) H 04/02/20 05:39 Lactic Acid 0.9 mmol/L (0.7-2.1) 03/31/20 09:54 Calcium 8.3 mg/dL (8.4-10.2) L 04/02/20 05:39 Magnesium 2.3 mg/dL (1.6-2.3) 03/31/20 09:54 Total Bilirubin 0.5 mg/dL (0.2-1.3) 04/02/20 05:39 AST 28 U/L (17-59) 04/02/20 05:39 Alkaline Phosphatase 55 U/L (38-126) 04/02/20 05:39 C-Reactive Protein 180.7 mg/L (<10.0) H 03/31/20 09:54 Total Protein 5.7 g/dL (6.3-8.2) L 04/02/20 05:39 Albumin 2.7 g/dL (3.5-5.0) L 04/02/20 05:39 Triglycerides 114 mg/dL (<150) 03/23/20 04:37 Cholesterol 169.09 mg/dL (0-200) 03/23/20 04:37 LDL Cholesterol Direct 113 mg/dL (<100) H 03/23/20 04:37 VLDL Cholesterol 23.0 mg/dL (10-31) 03/23/20 04:37 HDL Cholesterol 38 mg/dL (>40) L 03/23/20 04:37 Urine Color YELLOW 03/26/20 22:30 Urine Appearance CLEAR 03/26/20 22:30 Urine pH 6.0 (5.0-9.0) 03/26/20 22:30 Ur Specific [place] 1.006 03/26/20 22:30 Urine Protein NEGATIVE mg/dL (NEGATIVE) 03/26/20 22:30 Urine Glucose (UA) NEGATIVE mg/dL (NEGATIVE) 03/26/20 22:30 Urine Ketones NEGATIVE mg/dL (NEGATIVE) 03/26/20 22:30 Urine Blood MODERATE (NEGATIVE) H 03/26/20 22:30 Urine Nitrite NEGATIVE (NEGATIVE) 03/26/20 22:30 Ur Leukocyte Esterase NEGATIVE (NEGATIVE) 03/26/20 22:30 Urine WBC (Auto) 2 /HPF 03/26/20 22:30 Urine RBC (Auto) 3 /HPF 03/26/20 22:30 03/30/20 22:17 Leg - Right Gram Stain - Final 03/30/20 10:30 Knee - Below Knee Amputation Site Gram Stain - Final 03/30/20 10:30 Knee - Below Knee Amputation Site Wound Culture - Final NO GROWTH 3 DAYS 03/23/20 03/26/20 04:37 08:05 Creatine Kinase 46 L 181 H 03/23/20 09:58 Foot - Right Gram Stain - Final 03/23/20 09:58 Foot - Right Wound Culture - Final Enterobacter Cloacae Clostridium Perfringens 03/22/20 15:30 Foot - Right Gram Stain - Final 03/22/20 15:30 Foot - Right Wound Culture - Final Enterobacter [place]ae Aeromonas Hydrophilia Group Bacillus Sp. Not Anthracis Clostridium Perfringens 03/23/20 09:58 Foot - Right Gram Stain - Final 03/23/20 09:58 Foot - Right Wound Culture - Final Enterobacter Cloacae Clostridium Perfringens 03/22/20 15:30 Foot - Right Gram Stain - Final 03/22/20 15:30 Foot - Right Wound Culture - Final Enterobacter [place]ae Aeromonas Hydrophilia Group Bacillus Sp. Not Anthracis Clostridium Perfringens Clostridium Sordellii 03/22/20 15:30 Foot - Right Gram Stain - Final 03/22/20 15:30 Foot - Right Wound Culture - Final Enterobacter [place]ae Aeromonas Hydrophilia Group Clostridium Perfringens Clostridium Sordellii Radiology: Foot X-Ray 03/22/20 11:54 IMPRESSION: Soft tissue air concerning for infection with a gas producing organism. Lower Extremity CT 03/22/20 13:26 IMPRESSION: Deep-seated wound infection without evidence of organized abscess or osteomyelitis. Assessment and Recommendations: Patient evaluated due to necrotizing fasciitis of the right foot s/p multiple debridement and ultimately requiring BKA on 03/25. This infection is polymicr obial with significant amount of anaerobes including Clostridium sordellii that has been associated with septic shock and severe infection. He is afebrile and HD stable, no leukocytosis. A recommendation was made to complete antibiotics 4 days after the surgery, however the surgical site did not seem to be healing well. Cultures were done but no growth. Debridement was done on 04/01 and cultures negative, there were mostly blood clots, no purulence. There isn't overwhelming evidence of infection. There might be other vascular issues contributing to non healing like microvascular disease. Will recommend to continue broad spectrum antibiotics until cultures are finalized, If no growth, will recommend to discontinue antibiotics or assess if a higher level of amputation is needed based on vascular studies (may need vascular studies). Please call if questions. Tete Waters MD [facility] [phone]
[2020-04-03] MEDS: CYCLOBENZAPRINE HCL 10 MG TABLET PO SCH (22:45)
[2020-04-03] MEDS: ATORVASTATIN CALCIUM 40 MG TABLET PO SCH (22:46)
[2020-04-04] MEDS: HYDROMORPHONE HCL INJ/PF 2 MG/ML AMPULE IV PRN ×6 (00:33→23:56)
[2020-04-04] MEDS: TRAMADOL HCL 50 MG TABLET PO PRN ×3 (03:11→22:05)
[2020-04-04] MEDS: MEROPENEM 1 GM in NORMAL SALINE 50 ML IV SCH ×3 (05:50→22:06)
[2020-04-04] MEDS: CYCLOBENZAPRINE HCL 10 MG TABLET PO SCH ×3 (06:29→22:04)
[2020-04-04] MEDS: GABAPENTIN 300 MG CAPSULE PO SCH ×3 (06:30→22:06)
[2020-04-04 06:42] LABS: ABSOLUTE BASOPHILS # (AUTO) 0.1 10^3/uL (0.0-0.2); ABSOLUTE EOSINOPHILS # (AUTO) 0.3 10^3/uL (0.0-0.6); ABSOLUTE LYMPHOCYTES (AUTO) 2.3 10^3/uL (0.5-4.7); ABSOLUTE MONOCYTES (AUTO) 0.8 10^3/uL (0.1-1.4); ABSOLUTE NEUT (AUTO) 4.9 10^3/uL (1.7-8.2); BASOPHILS % (AUTO) 0.7 % (0-2); EOSINOPHILS % (AUTO) 3.6 % (0-6); HEMATOCRIT 27.7 % (37.9-51.0); HEMOGLOBIN 9.8 g/dL (13.5-17.0); LYMPHOCYTES % (AUTO) 27.2 % (13-45); MEAN CORPUSCULAR HEMOGLOBIN 31.1 pg (27.0-33.4); MEAN CORPUSCULAR HGB CONC 35.5 g/dL (32.0-36.0); MEAN CORPUSCULAR VOLUME 88 fl (80-97); MONOCYTES % (AUTO) 9.6 % (3-13); PLATELET COUNT 488 10^3/uL (150-450); RED BLOOD COUNT 3.17 10^6/uL (4.35-5.55); RED CELL DISTRIBUTION WIDTH 12.6 % (11.5-14.0); SEGMENTED NEUTROPHILS % (AUTO) 58.9 % (42-78); TOTAL CELLS COUNTED % (AUTO) 100 %; WHITE BLOOD COUNT 8.3 10^3/uL (4.0-10.5)
[2020-04-04] MEDS: IBUPROFEN 800 MG TABLET PO SCH ×3 (08:39→17:52)
[2020-04-04] MEDS: INSULIN LISPRO 100 UNIT/ML 3 ML VIAL SUBCUT SCH ×7 (08:51→22:07)
[2020-04-04] MEDS: DOCUSATE SODIUM 100 MG CAPSULE PO SCH ×2 (10:08→17:52)
[2020-04-04] MEDS: FAMOTIDINE 20 MG TABLET PO SCH ×2 (10:49→22:03)
[2020-04-04] MEDS: NIFEDIPINE 30 MG TAB.ER.24 PO SCH ×2 (10:50→22:05)
[2020-04-04] MEDS: LINEZOLID 600 MG/300 ML RTUPB IV SCH ×2 (10:50→22:08)
[2020-04-04] MEDS: INSULIN GLARGINE,HUM.REC.ANLOG 1,000 UNIT/10 ML VIAL SUBCUT SCH ×2 (10:51→22:07)
[2020-04-04] MEDS ORDERED: FENTANYL CITRATE INJ/PF 100 MCG/2 ML AMPUL ONE (11:07)
[2020-04-04] MEDS ORDERED: PROPOFOL INJ 200 MG/20 ML VIAL IV ONE ×2 (11:08→11:47)
[2020-04-04] MEDS ORDERED: MIDAZOLAM 2 MG/2 ML INJ ONE (11:08)
[2020-04-04] MEDS ORDERED: BUPIVACAINE HCL 0.5 % INJ/PF 30 ML SDV ONE (12:13)
--- NOTE | 2020-04-04 12:45 | Operative Report ---
Operative Report DATE OF SURGERY: 04/04/20 PREOPERATIVE DIAGNOSIS: gas gangrene right foot, infected BKA stump POSTOPERATIVE DIAGNOSIS: Same OPERATION: Jet lavage right BKA stump, wound VAC application SURGEON: CRISTINA MORENO ANESTHESIA: LMAC TISSUE REMOVED OR ALTERED: None COMPLICATIONS: None ESTIMATED BLOOD LOSS: Negligible INTRAOPERATIVE FINDINGS: [place] right BKA muscles, healthy subcutaneous tissue and skin flaps PROCEDURE: The procedure was done in the operating room, the patient was placed in a supine position, deep IV sedation induced by the nurse merchandise director, the right BKA stump wound VAC was removed, the area was prepped draped in a sterile fashion, jet lavage with 3 L of normal saline was used to gently clean the surface of the BKA stump. This was found to be granulating, pink, with some active bleeding, the muscle planes, fat tissue, and skin appear to be healthy. The skin around the wound was dried, 2 large pieces of laureano sponge tailored to the size of the wound bed were placed on the wound bed followed by several large pieces of of Tegaderm. These were applied to the wound sponge as well as to the skin surrounding the wound. An opening was made in the Tegaderm above the laureano sponge and the vacuum cup was attached to it and connected to suction. Good neg ative suction was obtained with negative pressure -125 mmHg. The patient tolerated procedure well and was transferred to the recovery room in satisfactory conditions.
--- NOTE | 2020-04-04 14:53 | PDOC PROGRESS REPORT ---
Subjective Progress Note for:: 04/04/20 Subjective:: Patient admitted with gas gangrene to the right foot following a stepped on a nail. Now status post right BKA and numerous debridements surgeries. Patient still complaining of substantial pain, phantom pain as well as nerve like discomfort. Looks like most of his meds are ordered as needed and so I will change some to scheduled 04/04 Still excessive c/o pain. He appears somewhat sedated although able to converse at the time of my exam Reason For Visit: PUNCTURE WOUND OF RIGHT FOOT WITH COMPLICATION Physical Exam Vital Signs: Temp Pulse Resp BP Pulse Ox 97.2 F 101 H 18 148/73 H 98 04/04/20 14:12 04/04/20 14:12 04/04/20 14:12 04/04/20 14:12 04/04/20 14:12 Intake & Output 04/03/20 04/04/20 04/05/20 06:59 06:59 06:59 Intake Total 5446 3350 1400 Output Total 5620 3275 2350 Balance -174 75 -950 Weight 130.7 kg 133.4 kg General appearance: PRESENT: no acute distress, obese, well-developed, well-no urished Head exam: PRESENT: atraumatic, normocephalic Eye exam: PRESENT: EOMI. ABSENT: scleral icterus Neck exam: ABSENT: carotid bruit, JVD, lymphadenopathy, thyromegaly Respiratory exam: PRESENT: clear to auscultation so, symmetrical, unlabored. ABSENT: rales, rhonchi, wheezes Cardiovascular exam: PRESENT: RRR, +S1, +S2. ABSENT: diastolic murmur, rubs, systolic murmur Vascular exam: PRESENT: normal capillary refill GI/Abdominal exam: PRESENT: normal bowel sounds, soft. ABSENT: distended, guarding, mass, organolmegaly, rebound, tenderness Rectal exam: PRESENT: deferred Extremities exam: PRESENT: other - R BKA with dressing and wound vac. ABSENT: calf tenderness, clubbing, pedal edema Neurological exam: PRESENT: alert, awake, oriented to person, oriented to place, oriented to situation. ABSENT: motor sensory deficit Psychiatric exam: PRESENT: appropriate affect. ABSENT: homicidal ideation, suicidal ideation Skin exam: PRESENT: dry, warm. ABSENT: cyanosis, rash Results Laboratory Results: 04/04/20 05:42 04/02/20 05:39 04/04/20 05:42 WBC 8.3 RBC 3.17 L Hgb 9.8 L Hct 27.7 L MCV 88 MCH 31.1 MCHC 35.5 RDW 12.6 Plt Count 488 H Seg Neutrophils % 58.9 04/01/20 12:10 Leg - Below Knee Amputation Site Gram Stain - Final 04/01/20 12:10 Leg - Below Knee Amputation Site Wound Culture - Final NO AEROBIC OR ANAEROBIC ORGANISMS RECOVERED 03/30/20 22:17 Leg - Right Gram Stain - Final 03/30/20 22:17 Leg - Right Wound Culture - Final NO AEROBIC OR ANAEROBIC ORGANISMS RECOVERED 03/23/20 03/26/20 04:37 08:05 Creatine Kinase 46 L 181 H Impressions: Foot X-Ray 03/22/20 11:54 IMPRESSION: Soft tissue air concerning for infection with a gas producing organism. Lower Extremity CT 03/22/20 13:26 IMPRESSION: Deep-seated wound infection without evidence of organized abscess or osteomyelitis. Assessment and Plan - Diagnosis (1) Necrotizing fasciitis of lower leg Is this a current diagnosis for this admission?: Yes Plan: Gas gangrene secondary to trauma from stepping on a nail Has been to the OR several times during this hospitalization. Initial operative intervention 03/22/20. Wound debridement on 03/23/20. BKA performed on 03/26/2020. Additional surgical debridement on 03/27/20. 03/30/20, and 04/01/20. Deep wound cultures are growing Clostridium perfringens, Clostridium Sodelli, Enterobacter, bacillus species, and Aeromonas Most recent wound cultures positive for Enterobacter cloacae and Clostridium perfringens Additional wound cultures pending. Surgery following and managing Initially was on vancomycin, Zosyn and completed 48 hours of clindamycin. Then vancomycin and meropenem. Vancomycin then discontinued r/t SHELBY. Have started Linezolid (03/27/20). ID was consulted and made recommendations for ABX. Also indicates end date of treatment of 03/29/2020 given source control achieved. As source control is not assured (continued progression of necrosis necessitating additional debridement and possible further amputation); will re-consult ID. ? benefit of Rifampin, although patient does not have MRSA Pain medications as below. 9/7F/U with ID as needed Surgical plan is for takedown the wound VAC in 24 to 48 hours in the OR and further plans will depend on findings. Continue to adjust analgesic for optimal pain control 04/03 continue with pain management 04/04Patient went to the ER today for dental [place] of the right BKA stump with wound VAC application. It appears wound appears to be healing well with pink granulation as per surgical notes. Infectious disease consultation also noted. (2) Essential hypertension Is this a current diagnosis for this admission?: Yes (3) Morbid obesity with BMI of 40.0-44.9, adult Is this a current diagnosis for this admission?: Yes Plan: He will benefit from weight loss (4) Uncontrolled diabetes mellitus Qualifiers: Diabetes mellitus type: type 2 Glycemic state: with hyperglycemia Qualified Code(s): E11.65 - Type 2 diabetes mellitus with hyperglycemia Is this a current diagnosis for this admission?: Yes Plan: Hemoglobin A1c 13.5% Patient is placed on a consistent carb diet. Currently on Humalog 6 units AC and Lantus 15 units every 12 Accu-Cheks before meals and at bedtime with Humalog for sliding scale coverage. Hypoglycemia protocol in place. Registered dietitian regional commercial sales manager consulted. Weight loss strongly encouraged (5) Uncontrolled pain Is this a current diagnosis for this admission?: Yes Plan: We will start patient on scheduled and continue with as needed. Hopefully this will help to control his pain better. We will also continue with the NSAID and adjust medications as needed - Time Time Spent with patient: 15-24 minutes Medications reviewed and adjusted accordingly: Yes Anticipated Discharge Disposition: Home with Home Health Anticipated Discharge Timeframe: within 72 hours
[2020-04-04] MEDS: ATORVASTATIN CALCIUM 40 MG TABLET PO SCH (22:05)
[2020-04-05] MEDS: NORMAL SALINE 1000 ML 1,000 ML IV PRN (03:25)
[2020-04-05] MEDS: TRAMADOL HCL 50 MG TABLET PO PRN ×3 (04:12→17:09)
[2020-04-05] MEDS: CYCLOBENZAPRINE HCL 10 MG TABLET PO SCH ×3 (06:05→22:43)
[2020-04-05] MEDS: GABAPENTIN 300 MG CAPSULE PO SCH ×3 (06:05→22:45)
[2020-04-05] MEDS: MEROPENEM 1 GM in NORMAL SALINE 50 ML IV SCH ×3 (06:07→22:48)
[2020-04-05] MEDS: IBUPROFEN 800 MG TABLET PO SCH ×3 (08:05→17:08)
[2020-04-05 08:06] LABS: ABSOLUTE BASOPHILS # (AUTO) 0.1 10^3/uL (0.0-0.2); ABSOLUTE EOSINOPHILS # (AUTO) 0.3 10^3/uL (0.0-0.6); ABSOLUTE LYMPHOCYTES (AUTO) 2.4 10^3/uL (0.5-4.7); ABSOLUTE MONOCYTES (AUTO) 0.9 10^3/uL (0.1-1.4); ABSOLUTE NEUT (AUTO) 5.4 10^3/uL (1.7-8.2); EOSINOPHILS % (AUTO) 3.3 % (0-6); HEMOGLOBIN 10.6 g/dL (13.5-17.0); LYMPHOCYTES % (AUTO) 26.8 % (13-45); MEAN CORPUSCULAR HGB CONC 34.1 g/dL (32.0-36.0); MEAN CORPUSCULAR VOLUME 88 fl (80-97); MONOCYTES % (AUTO) 9.6 % (3-13); PLATELET COUNT 577 10^3/uL (150-450); RED BLOOD COUNT 3.52 10^6/uL (4.35-5.55); RED CELL DISTRIBUTION WIDTH 12.7 % (11.5-14.0); SEGMENTED NEUTROPHILS % (AUTO) 59.3 % (42-78); TOTAL CELLS COUNTED % (AUTO) 100 %; WHITE BLOOD COUNT 9.1 10^3/uL (4.0-10.5)
[2020-04-05] MEDS: INSULIN LISPRO 100 UNIT/ML 3 ML VIAL SUBCUT SCH ×7 (08:06→22:43)
[2020-04-05 08:27] LABS: ANION GAP 9 (5-19); BLOOD UREA NITROGEN 17 mg/dL (7-20); CALCIUM 8.5 mg/dL (8.4-10.2); CARBON DIOXIDE 30 mmol/L (22-30); CHLORIDE 96 mmol/L (98-107); GLUCOSE 144 mg/dL (75-110); POTASSIUM 4.4 mmol/L (3.6-5.0)
[2020-04-05] MEDS: DOCUSATE SODIUM 100 MG CAPSULE PO SCH ×2 (10:40→17:43)
[2020-04-05] MEDS: NIFEDIPINE 30 MG TAB.ER.24 PO SCH ×2 (10:41→22:56)
[2020-04-05] MEDS: FAMOTIDINE 20 MG TABLET PO SCH ×2 (10:41→22:43)
[2020-04-05] MEDS: LINEZOLID 600 MG/300 ML RTUPB IV SCH ×2 (10:41→22:48)
[2020-04-05] MEDS: INSULIN GLARGINE,HUM.REC.ANLOG 1,000 UNIT/10 ML VIAL SUBCUT SCH ×2 (10:42→22:43)
--- NOTE | 2020-04-05 17:30 | PDOC PROGRESS REPORT ---
Subjective Progress Note for:: 04/05/20 Reason For Visit: PUNCTURE WOUND OF RIGHT FOOT WITH COMPLICATION Physical Exam Vital Signs: Temp Pulse Resp BP Pulse Ox 97.7 F 89 18 128/71 H 98 04/05/20 16:48 04/05/20 16:48 04/05/20 16:48 04/05/20 16:48 04/05/20 16:48 Intake & Output 04/04/20 04/05/20 04/06/20 06:59 06:59 06:59 Intake Total 3350 5050 1100 Output Total 3275 5550 1050 Balance 75 -500 50 Weight 133.4 kg 133.4 kg Results Laboratory Results: 04/05/20 07:50 04/05/20 07:50 04/05/20 04/05/20 07:50 07:50 WBC 9.1 RBC 3.52 L Hgb 10.6 L Hct 31.0 L MCV 88 MCH 30.0 MCHC 34.1 RDW 12.7 Plt Count 577 H Seg Neutrophils % 59.3 Sodium 134.5 L Potassium 4.4 Chloride 96 L Carbon Dioxide 30 Anion Gap 9 BUN 17 Creatinine 1.21 Est GFR ( Amer) > 60 Glucose 144 H Calcium 8.5 03/23/20 03/26/20 04:37 08:05 Creatine Kinase 46 L 181 H Impressions: Foot X-Ray 03/22/20 11:54 IMPRESSION: Soft tissue air concerning for infection with a gas producing organism. Lower Extremity CT 03/22/20 13:26 IMPRESSION: Deep-seated wound infection without evidence of organized abscess or osteomyelitis. Assessment & Plan - Diagnosis (1) Necrotizing fasciitis of lower leg Is this a current diagnosis for this admission?: Yes - Time Anticipated Discharge Disposition: Unknown Anticipated Discharge Timeframe: unknown - Plan Summary Plan Summary: 49-year-old male status post below-knee amputation, with subsequent re- debridements of his BKA stump. This was all due to necrotizing fasciitis of the lower extremity. The patient currently has a wound VAC on. Plan for closure of his stump at some point in the near future.
--- NOTE | 2020-04-05 17:33 | PDOC PROGRESS REPORT ---
Subjective Progress Note for:: 04/05/20 Subjective:: Patient admitted with gas gangrene to the right foot following a stepped on a nail. Now status post right BKA and numerous debridements surgeries. Patient still complaining of substantial pain, phantom pain as well as nerve like discomfort. Looks like most of his meds are ordered as needed and so I will change some to scheduled 04/04 Still excessive c/o pain. He appears somewhat sedated although able to converse at the time of my exam patient is still complaining of pain Reason For Visit: PUNCTURE WOUND OF RIGHT FOOT WITH COMPLICATION Physical Exam Vital Signs: Temp Pulse Resp BP Pulse Ox 97.7 F 89 18 128/71 H 98 04/05/20 16:48 04/05/20 16:48 04/05/20 16:48 04/05/20 16:48 04/05/20 16:48 Intake & Output 04/04/20 04/05/20 04/06/20 06:59 06:59 06:59 Intake Total 3350 5050 1100 Output Total 3275 5550 1050 Balance 75 -500 50 Weight 133.4 kg 133.4 kg General appearance: PRESENT: no acute distress, well-developed, well-nourished Head exam: PRESENT: atraumatic, normocephalic Eye exam: PRESENT: conjunctiva pink, EOMI, PERRLA. ABSENT: scleral icterus Ear exam: PRESENT: normal external ear exam Mouth exam: PRESENT: moist, tongue midline Neck exam: ABSENT: carotid bruit, JVD, lymphadenopathy, thyromegaly Respiratory exam: PRESENT: clear to auscultation so, unlabored. ABSENT: rales, rhonchi, wheezes Cardiovascular exam: PRESENT: RRR, +S1, +S2. ABSENT: diastolic murmur, rubs, systolic murmur Pulses: PRESENT: normal dorsalis pedis pul Vascular exam: PRESENT: normal capillary refill GI/Abdominal exam: PRESENT: normal bowel sounds, soft. ABSENT: distended, guarding, mass, organolmegaly, rebound, tenderness Rectal exam: PRESENT: deferred Extremities exam: PRESENT: full ROM, other - RLE wound, BKA. ABSENT: calf tenderness, clubbing, pedal edema Neurological exam: PRESENT: alert, awake, oriented to person, oriented to place, oriented to time, oriented to situation, CN II-XII grossly intact. ABSENT: motor sensory deficit Psychiatric exam: PRESENT: appropriate affect, normal mood. ABSENT: homicidal ideation, suicidal ideation Skin exam: PRESENT: dry, intact, warm. ABSENT: cyanosis, rash Results Laboratory Results: 04/05/20 07:50 04/05/20 07:50 04/05/20 04/05/20 07:50 07:50 WBC 9.1 RBC 3.52 L Hgb 10.6 L Hct 31.0 L MCV 88 MCH 30.0 MCHC 34.1 RDW 12.7 Plt Count 577 H Seg Neutrophils % 59.3 Sodium 134.5 L Potassium 4.4 Chloride 96 L Carbon Dioxide 30 Anion Gap 9 BUN 17 Creatinine 1.21 Est GFR ( Amer) > 60 Glucose 144 H Calcium 8.5 03/23/20 03/26/20 04:37 08:05 Creatine Kinase 46 L 181 H Impressions: Foot X-Ray 03/22/20 11:54 IMPRESSION: Soft tissue air concerning for infection with a gas producing organism. Lower Extremity CT 03/22/20 13:26 IMPRESSION: Deep-seated wound infection without evidence of organized abscess or osteomyelitis. Assessment and Plan - Diagnosis (1) Necrotizing fasciitis of lower leg Is this a current diagnosis for this admission?: Yes Plan: Gas gangrene secondary to trauma from stepping on a nail Has been to the OR several times during this hospitalization. Initial operative intervention 03/22/20. Wound debridement on 03/23/20. BKA performed on 03/26/2020. Additional surgical debridement on 03/27/20. 03/30/20, and 04/01/20. Deep wound cultures are growing Clostridium perfringens, Clostridium Sodelli, Enterobacter, bacillus species, and Aeromonas Most recent wound cultures positive for Enterobacter cloacae and Clostridium perfringens Additional wound cultures pending. Surgery following and managing Initially was on vancomycin, Zosyn and completed 48 hours of clindamycin. Then vancomycin and meropenem. Vancomycin then discontinued r/t SHELBY. Have started Linezolid (03/27/20). ID was consulted and made recommendations for ABX. Also indicates end date of treatment of 03/29/2020 given source control achieved. As source control is not assured (continued progression of necrosis necessitating additional debridement and possible further amputation); will re-consult ID. ? benefit of Rifampin, although patient does not have MRSA Pain medications as below. 9/7F/U with ID as needed Surgical plan is for takedown the wound VAC in 24 to 48 hours in the OR and further plans will depend on findings. Continue to adjust analgesic for optimal pain control 04/03 continue with pain management 04/04Patient went to the OR today again. It appears wound appears to be healing well with pink granulation as per surgical notes. Infectious disease consultation also noted. 04/05 and continues to complain of pain despite the minimal adverse findings as above. No changes will be made from my and regarding his analgesia today (2) Essential hypertension Is this a current diagnosis for this admission?: Yes Plan: Continued elevated blood pressures. Ensure adequate pain management. Continue Procardia 60 mg every 12 hour IV hydralazine as needed for blood pressure control. (3) Morbid obesity with BMI of 40.0-44.9, adult Is this a current diagnosis for this admission?: Yes (4) Uncontrolled diabetes mellitus Qualifiers: Diabetes mellitus type: type 2 Glycemic state: with hyperglycemia Qualified Code(s): E11.65 - Type 2 diabetes mellitus with hyperglycemia Is this a current diagnosis for this admission?: Yes Plan: Hemoglobin A1c 13.5% Patient is placed on a consistent carb diet. Currently on Humalog 6 units AC and Lantus 15 units every 12 Accu-Cheks before meals and at bedtime with Humalog for sliding scale coverage. Hypoglycemia protocol in place. Registered dietitian clinical systems educator consulted. Weight loss strongly encouraged (5) Uncontrolled pain Is this a current diagnosis for this admission?: Yes Plan: We will start patient on scheduled and continue with as needed. Hopefully this will help to control his pain better. We will also continue with the NSAID and continue to adjust medications as needed - Time Anticipated Discharge Disposition: Home with Home Health Anticipated Discharge Timeframe: within 72 hours
[2020-04-05] MEDS: HYDROCODONE/ACETAMINOPHEN 10-325 MG TABLET PO PRN (22:43)
[2020-04-05] MEDS: ATORVASTATIN CALCIUM 40 MG TABLET PO SCH (22:45)
[2020-04-06] MEDS: HYDROCODONE/ACETAMINOPHEN 10-325 MG TABLET PO PRN ×5 (02:45→22:18)
[2020-04-06] MEDS: GABAPENTIN 300 MG CAPSULE PO SCH ×3 (06:21→22:18)
[2020-04-06] MEDS: CYCLOBENZAPRINE HCL 10 MG TABLET PO SCH ×3 (06:21→22:19)
[2020-04-06] MEDS: MEROPENEM 1 GM in NORMAL SALINE 50 ML IV SCH ×4 (06:23→22:22)
[2020-04-06] MEDS: IBUPROFEN 800 MG TABLET PO SCH ×3 (07:23→18:06)
[2020-04-06] MEDS: INSULIN LISPRO 100 UNIT/ML 3 ML VIAL SUBCUT SCH ×7 (07:23→22:21)
[2020-04-06] MEDS: DOCUSATE SODIUM 100 MG CAPSULE PO SCH ×2 (09:11→17:34)
[2020-04-06] MEDS: INSULIN GLARGINE,HUM.REC.ANLOG 1,000 UNIT/10 ML VIAL SUBCUT SCH ×2 (09:11→22:21)
[2020-04-06] MEDS: FAMOTIDINE 20 MG TABLET PO SCH ×2 (09:11→22:19)
[2020-04-06] MEDS: LINEZOLID 600 MG/300 ML RTUPB IV SCH ×2 (09:12→22:22)
[2020-04-06] MEDS: NIFEDIPINE 30 MG TAB.ER.24 PO SCH ×2 (09:12→22:26)
--- NOTE | 2020-04-06 09:47 | PDOC PROGRESS REPORT ---
Subjective Progress Note for:: 04/06/20 Subjective:: No complaints Reason For Visit: PUNCTURE WOUND OF RIGHT FOOT WITH COMPLICATION Physical Exam Vital Signs: Temp Pulse Resp BP Pulse Ox 97.5 F 72 16 147/80 H 96 04/06/20 07:50 04/06/20 07:11 04/06/20 07:11 04/06/20 07:11 04/06/20 07:11 Intake & Output 04/05/20 04/06/20 04/07/20 06:59 06:59 06:59 Intake Total 5050 2760 350 Output Total 5550 4660 Balance -500 -1900 350 Weight 133.4 kg 133.6 kg General appearance: PRESENT: no acute distress Extremities exam: PRESENT: other - Right BKA site = wound VAC in place Results Laboratory Results: 04/05/20 07:50 04/05/20 07:50 03/23/20 03/26/20 04:37 08:05 Creatine Kinase 46 L 181 H Impressions: Foot X-Ray 03/22/20 11:54 IMPRESSION: Soft tissue air concerning for infection with a gas producing organism. Lower Extremity CT 03/22/20 13:26 IMPRESSION: Deep-seated wound infection without evidence of organized abscess or osteomyelitis. 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
[2020-04-06] MEDS ORDERED: FENTANYL CITRATE INJ/PF 100 MCG/2 ML AMPUL ONE ×2 (13:51→13:59)
[2020-04-06] MEDS ORDERED: MIDAZOLAM 2 MG/2 ML INJ ONE (13:51)
[2020-04-06] MEDS ORDERED: KETAMINE HCL INJ 500 MG/10 ML VIAL ONE (13:51)
[2020-04-06] MEDS ORDERED: PROPOFOL INJ 200 MG/20 ML VIAL IV ONE (13:52)
[2020-04-06] MEDS ORDERED: ONDANSETRON HCL INJ/PF 4 MG/2 ML SDV ONE (13:52)
[2020-04-06] MEDS ORDERED: LIDOCAINE 0.5% INJ-PF (5 MG/ML) 50 ML SDV ONE (13:58)
[2020-04-06] MEDS ORDERED: MEPERIDINE HCL/PF INJ 25 MG/1 ML DISP.SYRIN IV PRN (15:10)
[2020-04-06] MEDS ORDERED: MORPHINE SULFATE 10 MG/ML INJ IV PRN (15:10)
[2020-04-06] MEDS ORDERED: FENTANYL CITRATE INJ/PF 100 MCG/2 ML AMPUL IV PRN ×3 (15:10)
[2020-04-06] MEDS ORDERED: DIPHENHYDRAMINE HCL 50 MG/ML VIAL IV PRN (15:10)
[2020-04-06] MEDS ORDERED: PROMETHAZINE HCL INJ 25 MG/1 ML VIAL IV PRN ×2 (15:10)
[2020-04-06] MEDS: MORPHINE SULFATE 10 MG/ML INJ ONE ×2 (16:10→16:20)
[2020-04-06] MEDS: PROMETHAZINE HCL INJ 25 MG/1 ML VIAL ONE ×2 (16:21→16:26)
[2020-04-06] MEDS: FENTANYL CITRATE INJ/PF 100 MCG/2 ML AMPUL ONE ×2 (16:21→16:26)
[2020-04-06] MEDS: NORMAL SALINE 1000 ML 1,000 ML IV PRN (16:42)
[2020-04-06] MEDS ORDERED: ROPIVACAINE HCL 0.5% INJ/PF (5 MG/1 ML) 30 ML SDV ONE (16:45)
--- NOTE | 2020-04-06 16:55 | PDOC PROGRESS REPORT ---
Subjective Progress Note for:: 04/06/20 Subjective:: Patient admitted with gas gangrene to the right foot following a stepped on a nail. Now status post right BKA and numerous debridements surgeries. Patient still complaining of substantial pain, phantom pain as well as nerve like discomfort. Looks like most of his meds are ordered as needed and so I will change some to scheduled 04/04 Still excessive c/o pain. He appears somewhat sedated although able to converse at the time of my exam patient is still complaining of pain Reason For Visit: PUNCTURE WOUND OF RIGHT FOOT WITH COMPLICATION Physical Exam Vital Signs: Temp Pulse Resp BP Pulse Ox 97.2 F 77 16 156/73 H 98 04/06/20 13:07 04/06/20 13:07 04/06/20 13:07 04/06/20 13:07 04/06/20 13:07 Intake & Output 04/05/20 04/06/20 04/07/20 06:59 06:59 06:59 Intake Total 5050 3760 700 Output Total 5550 4660 1100 Balance -500 -900 -400 Weight 133.4 kg 133.6 kg General appearance: PRESENT: no acute distress, well-developed, well-nourished Head exam: PRESENT: atraumatic, normocephalic Eye exam: PRESENT: conjunctiva pink, EOMI, PERRLA. ABSENT: scleral icterus Ear exam: PRESENT: normal external ear exam Mouth exam: PRESENT: moist, tongue midline Neck exam: ABSENT: carotid bruit, JVD, lymphadenopathy, thyromegaly Respiratory exam: PRESENT: clear to auscultation so, decreased breath sounds, unlabored. ABSENT: rales, rhonchi, wheezes Cardiovascular exam: PRESENT: RRR, +S1, +S2. ABSENT: diastolic murmur, rubs, s ystolic murmur Pulses: PRESENT: normal dorsalis pedis pul Vascular exam: PRESENT: normal capillary refill GI/Abdominal exam: PRESENT: normal bowel sounds, soft. ABSENT: distended, guarding, mass, organolmegaly, rebound, tenderness Rectal exam: PRESENT: deferred Extremities exam: PRESENT: full ROM. ABSENT: calf tenderness, clubbing, pedal edema Neurological exam: PRESENT: alert, awake, oriented to person, oriented to place, oriented to time, oriented to situation, CN II-XII grossly intact. ABSENT: motor sensory deficit Psychiatric exam: PRESENT: appropriate affect, normal mood. ABSENT: homicidal ideation, suicidal ideation Skin exam: PRESENT: dry, intact, warm. ABSENT: cyanosis, rash Results Laboratory Results: 04/05/20 07:50 04/05/20 07:50 03/23/20 03/26/20 04:37 08:05 Creatine Kinase 46 L 181 H Impressions: Foot X-Ray 03/22/20 11:54 IMPRESSION: Soft tissue air concerning for infection with a gas producing organism. Lower Extremity CT 03/22/20 13:26 IMPRESSION: Deep-seated wound infection without evidence of organized abscess or osteomyelitis. Assessment and Plan - Diagnosis (1) Necrotizing fasciitis of lower leg Is this a current diagnosis for this admission?: Yes Plan: Gas gangrene secondary to trauma from stepping on a nail Has been to the OR several times during this hospitalization. Initial operative intervention 03/22/20. Wound debridement on 03/23/20. BKA performed on 03/26/2020. Additional surgical debridement on 03/27/20. 03/30/20, and 04/01/20. Deep wound cultures are growing Clostridium perfringens, Clostridium Sodelli, Enterobacter, bacillus species, and Aeromonas Most recent wound cultures positive for Enterobacter cloacae and Clostridium perfringens Additional wound cultures pending. Surgery following and managing Initially was on vancomycin, Zosyn and completed 48 hours of clindamycin. Then vancomycin and meropenem. Vancomycin then discontinued r/t SHELBY. Have started Linezolid (03/27/20). ID was consulted and made recommendations for ABX. Also indicates end date of treatment of 03/29/2020 given source control achieved. As source control is not assured (continued progression of necrosis necessitating additional debridement and possible further amputation); will re-consult ID. ? benefit of Rifampin, although patient does not have MRSA Pain medications as below. /U with ID as needed Surgical plan is for takedown the wound VAC in 24 to 48 hours in the OR and further plans will depend on findings. Continue to adjust analgesic for optimal pain control 04/03 continue with pain management 04/04Patient went to the OR today again. It appears wound appears to be healing well with pink granulation as per surgical notes. Infectious disease consultation also noted. 04/05 and continues to complain of pain despite the minimal adverse findings as above. No changes will be made from my and regarding his analgesia today 04/06He status post stump revision and completion amputation (2) Essential hypertension Is this a current diagnosis for this admission?: Yes (3) Morbid obesity with BMI of 40.0-44.9, adult Is this a current diagnosis for this admission?: Yes (4) Uncontrolled diabetes mellitus Qualifiers: Diabetes mellitus type: type 2 Glycemic state: with hyperglycemia Qualified Code(s): E11.65 - Type 2 diabetes mellitus with hyperglycemia Is this a current diagnosis for this admission?: Yes Plan: Hemoglobin A1c 13.5% Patient is placed on a consistent carb diet. Currently on Humalog 6 units AC and Lantus 15 units every 12 Accu-Cheks before meals and at bedtime with Humalog for sliding scale coverage. Hypoglycemia protocol in place. Registered dietitian health promotion educator consulted. Weight loss strongly encouraged 04/06 blood sugars are better controlled (5) Uncontrolled pain Is this a current diagnosis for this admission?: Yes Plan: We will start patient on scheduled and continue with as needed. Hopefully this will help to control his pain better. We will also continue with the NSAID and continue to adjust medications as needed - Time Time Spent with patient: 15-24 minutes Anticipated Discharge Disposition: Home with Home Health Anticipated Discharge Timeframe: within 72 hours
[2020-04-06] MEDS ORDERED: HYDRALAZINE HCL INJ/PF 20 MG/1 ML SDV ONE (17:09)
[2020-04-06] MEDS: HYDRALAZINE HCL INJ/PF 20 MG/1 ML SDV IV PRN (17:10)
--- NOTE | 2020-04-06 17:20 | Operative Report ---
Operative Report DATE OF SURGERY: 04/06/20 PREOPERATIVE DIAGNOSIS: Gas gangrene and clostridial infection of the right mary t; dehiscence right BKA stump; diabetes POSTOPERATIVE DIAGNOSIS: Same OPERATION: Completion amputation right BKA stump SURGEON: CRISTINA MORENO ANESTHESIA: GA TISSUE REMOVED OR ALTERED: Muscle, section of right tibia and right fibula COMPLICATIONS: None ESTIMATED BLOOD LOSS: 30 mL INTRAOPERATIVE FINDINGS: Viable skin and muscle right BKA stump no evidence of infection PROCEDURE: The procedure was done in the operating room, the patient was placed in supine position, general anesthesia induced by induced intubation, the right lower extremity wound VAC was removed tourniquet was applied to the right upper thigh covered with a 1010 drapes, and the right lower extremity and stump were prepped and draped in the usual fashion the right lower extremity was exsanguinated with Esmarch bandage, the tourniquet was inflated to 2080 mmHg, the right lower extremity stump was then approached by initially refreshing the wound edges circumferentially with a knife first and then with Bovie. The muscle planes were then debulked, both the tibia and the fibula were then stripped from the periosteum and about 2 inches of each were divided with electrical saw. Bone wax was applied to the bone stamps, a separate stab wound was made on the lateral aspect of the right upper leg and a 15 German Mohinder drain was inserted through the incision, placed deep in the surgical field, secured the skin with a nylon suture, and connected to bulb suction. Local smaller vessels were identified and cauterized or suture ligated. The surgical field was then irrigated with normal saline until clear. Closure of the BKA was accomplished by anteriorly rotating the posterior myocutaneous flap. This was kept in positions with a few deep inverted figure-of-8 0-Vicryl sutures. The muscle fascia was approximated with interrupted [id number] 0-Vicryl sutures. The subcutaneous tissue were approximated with deep inverted 2-0 Vicryl sutures and the skin was closed with courtney. 4 x 4's were placed on the surgical wound followed by dry dressings and Kerlix roll. A prefabricated, fiberglass, padded splint was applied posteriorly to the distal thigh and to the BKA stump and folded anteriorly; this was kept in position by an Idris bandage. The splint was allowed to cure while the BKA stump was maintained extended. The tourniquet was deflated; the tourniquet time was 20 minutes. The patient tolerated procedure well, was extubated, and was transferred to the recovery room in satisfactory conditions.
[2020-04-06] MEDS: KETOROLAC TROMETHAMINE INJ/PF 30 MG/1 ML SDV IV SCH (17:58)
[2020-04-06] MEDS: ACETAMINOPHEN 1,000 MG/100 ML RTUPB IV SCH (18:41)
[2020-04-06] MEDS: HYDROMORPHONE HCL INJ/PF 2 MG/ML AMPULE IV PRN ×2 (18:42→23:04)
[2020-04-06] MEDS: ATORVASTATIN CALCIUM 40 MG TABLET PO SCH (22:18)
[2020-04-07] MEDS: KETOROLAC TROMETHAMINE INJ/PF 30 MG/1 ML SDV IV SCH ×4 (00:59→17:02)
[2020-04-07] MEDS: ACETAMINOPHEN 1,000 MG/100 ML RTUPB IV SCH ×4 (01:04→17:02)
[2020-04-07] MEDS: CYCLOBENZAPRINE HCL 10 MG TABLET PO SCH ×3 (06:29→22:01)
[2020-04-07] MEDS: MEROPENEM 1 GM in NORMAL SALINE 50 ML IV SCH ×3 (06:32→22:03)
[2020-04-07] MEDS: HYDROCODONE/ACETAMINOPHEN 10-325 MG TABLET PO PRN (06:32)
[2020-04-07] MEDS: GABAPENTIN 300 MG CAPSULE PO SCH ×3 (06:32→22:02)
[2020-04-07 06:59] LABS: ABSOLUTE BASOPHILS # (AUTO) 0.1 10^3/uL (0.0-0.2); ABSOLUTE EOSINOPHILS # (AUTO) 0.1 10^3/uL (0.0-0.6); ABSOLUTE LYMPHOCYTES (AUTO) 2.6 10^3/uL (0.5-4.7); ABSOLUTE NEUT (AUTO) 7.4 10^3/uL (1.7-8.2); BASOPHILS % (AUTO) 0.7 % (0-2); EOSINOPHILS % (AUTO) 1.2 % (0-6); HEMATOCRIT 28.1 % (37.9-51.0); HEMOGLOBIN 9.8 g/dL (13.5-17.0); LYMPHOCYTES % (AUTO) 23.1 % (13-45); MEAN CORPUSCULAR HEMOGLOBIN 30.4 pg (27.0-33.4); MEAN CORPUSCULAR HGB CONC 34.7 g/dL (32.0-36.0); MEAN CORPUSCULAR VOLUME 88 fl (80-97); MONOCYTES % (AUTO) 9.1 % (3-13); PLATELET COUNT 509 10^3/uL (150-450); RED BLOOD COUNT 3.22 10^6/uL (4.35-5.55); RED CELL DISTRIBUTION WIDTH 12.6 % (11.5-14.0); SEGMENTED NEUTROPHILS % (AUTO) 65.9 % (42-78); TOTAL CELLS COUNTED % (AUTO) 100 %; WHITE BLOOD COUNT 11.3 10^3/uL (4.0-10.5)
[2020-04-07 07:26] LABS: ANION GAP 7 (5-19); BLOOD UREA NITROGEN 14 mg/dL (7-20); CALCIUM 8.4 mg/dL (8.4-10.2); CARBON DIOXIDE 29 mmol/L (22-30); CHLORIDE 97 mmol/L (98-107); GLUCOSE 215 mg/dL (75-110); POTASSIUM 4.5 mmol/L (3.6-5.0)
[2020-04-07] MEDS: INSULIN LISPRO 100 UNIT/ML 3 ML VIAL SUBCUT SCH ×7 (07:32→21:55)
[2020-04-07] MEDS: DOCUSATE SODIUM 100 MG CAPSULE PO SCH ×2 (09:25→17:01)
[2020-04-07] MEDS: HYDROMORPHONE HCL INJ/PF 2 MG/ML AMPULE IV PRN ×3 (09:32→20:12)
[2020-04-07] MEDS: FAMOTIDINE 20 MG TABLET PO SCH ×2 (09:33→22:01)
[2020-04-07] MEDS: LINEZOLID 600 MG/300 ML RTUPB IV SCH (09:33)
[2020-04-07] MEDS: NIFEDIPINE 30 MG TAB.ER.24 PO SCH ×2 (09:33→22:03)
[2020-04-07] MEDS: INSULIN GLARGINE,HUM.REC.ANLOG 1,000 UNIT/10 ML VIAL SUBCUT SCH ×2 (09:33→22:02)
--- NOTE | 2020-04-07 09:55 | PDOC PROGRESS REPORT ---
Subjective Progress Note for:: 04/07/20 Subjective:: Patient comfortable, complaining of shooting pain of the right BKA stump Reason For Visit: PUNCTURE WOUND OF RIGHT FOOT WITH COMPLICATION Physical Exam Vital Signs: Temp Pulse Resp BP Pulse Ox 97.8 F 89 16 112/69 98 04/07/20 09:03 04/07/20 07:32 04/07/20 07:32 04/07/20 07:32 04/07/20 07:32 Intake & Output 04/06/20 04/07/20 04/08/20 06:59 06:59 06:59 Intake Total 3760 2875 Output Total 4660 4410 Balance -900 -1535 Weight 133.6 kg 133.6 kg General appearance: PRESENT: no acute distress Extremities exam: PRESENT: other - Right lower extremity = BKA stump covered with dressings clean, dry, and intact; Mohinder drain filled with serosanguineous fluid Results Laboratory Results: 04/07/20 06:19 04/07/20 06:19 04/07/20 04/07/20 06:19 06:19 WBC 11.3 H RBC 3.22 L Hgb 9.8 L Hct 28.1 L MCV 88 MCH 30.4 MCHC 34.7 RDW 12.6 Plt Count 509 H Seg Neutrophils % 65.9 Sodium 133.4 L Potassium 4.5 Chloride 97 L Carbon Dioxide 29 Anion Gap 7 BUN 14 Creatinine 1.16 Est GFR ( Amer) > 60 Glucose 215 H Calcium 8.4 03/23/20 03/26/20 04:37 08:05 Creatine Kinase 46 L 181 H Impressions: Foot X-Ray 03/22/20 11:54 IMPRESSION: Soft tissue air concerning for infection with a gas producing orga nism. Lower Extremity CT 03/22/20 13:26 IMPRESSION: Deep-seated wound infection without evidence of organized abscess or osteomyelitis. Assessment & Plan - Diagnosis (1) Gas gangrene Is this a current diagnosis for this admission?: Yes (2) Hyperglycemia Is this a current diagnosis for this admission?: Yes (3) Puncture wound of right foot with complication Qualifiers: Encounter type: initial encounter Qualified Code(s): S91.331A - Puncture wound without foreign body, right foot, initial encounter Is this a current diagnosis for this admission?: Yes - Time Anticipated Discharge Disposition: Home, Self Care Anticipated Discharge Timeframe: within 72 hours - Plan Summary Plan Summary: Assessment: Postop day #1 following completion amputation and revision of right BKA stump Mohinder drain output minimal 10 mL of serosanguineous fluid Patient complaining of shooting pain of the right BKA stump as per phantom pain Plan: BKA stump to be unveiled in the next 1 to 2 days I am recommending no weightbearing on the stump a right BKA stump elevation for the next 4 to 6 weeks Patient to be evaluated by physical therapy for application of tool supervisor to the BKA stump in the next few days prior to discharge from the hospital
--- NOTE | 2020-04-07 17:40 | PDOC PROGRESS REPORT ---
Subjective Progress Note for:: 04/07/20 Subjective:: Patient admitted with gas gangrene to the right foot following a stepped on a nail. Now status post right BKA and numerous debridements surgeries. Patient still complaining of substantial pain, phantom pain as well as nerve like discomfort. Looks like most of his meds are ordered as needed and so I will change some to scheduled 04/04 Still excessive c/o pain. He appears somewhat sedated although able to converse at the time of my exam patient is still complaining of pain atient continues to complain of pain although he seems a little bit more subdued today. He is postop day #1 following completion amputation and revision of right BKA stump. Plan is to unveil stump in the next 1 to 2 days. Continue with physical therapy as per surgery recommendations Reason For Visit: PUNCTURE WOUND OF RIGHT FOOT WITH COMPLICATION Physical Exam Vital Signs: Temp Pulse Resp BP Pulse Ox 98.0 F 81 16 118/64 98 04/07/20 15:37 04/07/20 15:37 04/07/20 15:37 04/07/20 15:37 04/07/20 15:37 Intake & Output 04/06/20 04/07/20 04/08/20 06:59 06:59 06:59 Intake Total 3760 2875 1989 Output Total 4660 4410 250 Balance -900 -1535 1740 Weight 133.6 kg 133.6 kg General appearance: PRESENT: morbidly obese Head exam: PRESENT: atraumatic, normocephalic Eye exam: PRESENT: conjunctiva pink, EOMI, PERRLA. ABSENT: scleral icterus Ear exam: PRESENT: normal external ear exam Mouth exam: PRESENT: moist, tongue midline Neck exam: ABSENT: carotid bruit, JVD, lymphadenopathy, thyromegaly Respiratory exam: PRESENT: clear to auscultation so. ABSENT: rales, rhonchi, wheezes Cardiovascular exam: PRESENT: RRR, +S1, +S2. ABSENT: diastolic murmur, rubs, systolic murmur Pulses: PRESENT: normal dorsalis pedis pul Vascular exam: PRESENT: normal capillary refill GI/Abdominal exam: PRESENT: normal bowel sounds, soft. ABSENT: distended, guarding, mass, organolmegaly, rebound, tenderness Rectal exam: PRESENT: deferred Extremities exam: PRESENT: full ROM, other - R BKA covered with dressing. ABSENT: calf tenderness, clubbing, pedal edema Neurological exam: PRESENT: alert, awake, oriented to person, oriented to place, oriented to time, oriented to situation, CN II-XII grossly intact. ABSENT: motor sensory deficit Psychiatric exam: PRESENT: appropriate affect, normal mood. ABSENT: homicidal ideation, suicidal ideation Skin exam: PRESENT: dry, warm. ABSENT: cyanosis, rash Results Laboratory Results: 04/07/20 06:19 04/07/20 06:19 04/07/20 04/07/20 06:19 06:19 WBC 11.3 H RBC 3.22 L Hgb 9.8 L Hct 28.1 L MCV 88 MCH 30.4 MCHC 34.7 RDW 12.6 Plt Count 509 H Seg Neutrophils % 65.9 Sodium 133.4 L Potassium 4.5 Chloride 97 L Carbon Dioxide 29 Anion Gap 7 BUN 14 Creatinine 1.16 Est GFR ( Amer) > 60 Glucose 215 H Calcium 8.4 03/23/20 03/26/20 04:37 08:05 Creatine Kinase 46 L 181 H Impressions: Foot X-Ray 03/22/20 11:54 IMPRESSION: Soft tissue air concerning for infection with a gas producing organism. Lower Extremity CT 03/22/20 13:26 IMPRESSION: Deep-seated wound infection without evidence of organized abscess or osteomyelitis. Assessment and Plan - Diagnosis (1) Necrotizing fasciitis of lower leg Is this a current diagnosis for this admission?: Yes Plan: Gas gangrene secondary to trauma from stepping on a nail Has been to the OR several times during this hospitalization. Initial operative intervention 03/22/20. Wound debridement on 03/23/20. BKA performed on 03/26/2020. Additional surgical debridement on 03/27/20. 03/30/20, and 04/01/20. Deep wound cultures are growing Clostridium perfringens, Clostridium Sodelli, Enterobacter, bacillus species, and Aeromonas Most recent wound cultures positive for Enterobacter cloacae and Clostridium perfringens Additional wound cultures pending. Surgery following and managing Initially was on vancomycin, Zosyn and completed 48 hours of clindamycin. Then vancomycin and meropenem. Vancomycin then discontinued r/t SHELBY. Have st arted Linezolid (03/27/20). ID was consulted and made recommendations for ABX. Also indicates end date of treatment of 03/29/2020 given source control achieved. As source control is not assured (continued progression of necrosis necessitating additional debridement and possible further amputation); will re-consult ID. ? benefit of Rifampin, although patient does not have MRSA Pain medications as below. /U with ID as needed Surgical plan is for takedown the wound VAC in 24 to 48 hours in the OR and further plans will depend on findings. Continue to adjust analgesic for optimal pain control 04/03 continue with pain management 04/04Patient went to the OR today again. It appears wound appears to be healing well with pink granulation as per surgical notes. Infectious disease consultation also noted. 04/05 and continues to complain of pain despite the minimal adverse findings as above. No changes will be made from my and regarding his analgesia today 04/06He status post stump revision and completion amputation 04/07 postop day 1 status post stump revision and completion amputation. Patient has his usual complaints of pain (2) Essential hypertension Is this a current diagnosis for this admission?: Yes Plan: Controlled blood pressures. Ensure adequate pain management. Continue Procardia 60 mg every 12 hour IV hydralazine as needed for blood pressure control. (3) Morbid obesity with BMI of 40.0-44.9, adult Is this a current diagnosis for this admission?: Yes (4) Uncontrolled diabetes mellitus Qualifiers: Diabetes mellitus type: type 2 Glycemic state: with hyperglycemia Qualified Code(s): E11.65 - Type 2 diabetes mellitus with hyperglycemia Is this a current diagnosis for this admission?: Yes Plan: Blood sugar better controlled with improved infection control (5) Uncontrolled pain Is this a current diagnosis for this admission?: Yes - Plan Summary Summary: Multiple organisms including Enterobacter, Clostridium, Aeromonas, multiple species of Clostridium growing which is consistent with this necrotizing fasciitis. Please see infectious disease notes. Patient is currently on linezolid and meropenem. Please follow-up and adjust antibiotics as suggested by ID - Time Time Spent with patient: 15-24 minutes Anticipated Discharge Disposition: Home with Home Health Anticipated Discharge Timeframe: within 72 hours
[2020-04-07] MEDS: NORMAL SALINE 1000 ML 1,000 ML IV PRN (20:17)
[2020-04-07] MEDS: ATORVASTATIN CALCIUM 40 MG TABLET PO SCH (22:01)
[2020-04-08] MEDS: KETOROLAC TROMETHAMINE INJ/PF 30 MG/1 ML SDV IV SCH ×5 (00:15→23:19)
[2020-04-08] MEDS: ACETAMINOPHEN 1,000 MG/100 ML RTUPB IV SCH ×4 (00:15→18:02)
[2020-04-08] MEDS: LINEZOLID 600 MG/300 ML RTUPB IV SCH ×3 (00:16→23:20)
[2020-04-08] MEDS: HYDROCODONE/ACETAMINOPHEN 10-325 MG TABLET PO PRN ×4 (01:39→21:52)
[2020-04-08] MEDS: HYDROMORPHONE HCL INJ/PF 2 MG/ML AMPULE IV PRN ×5 (02:34→18:45)
[2020-04-08 04:41] LABS: ABSOLUTE BASOPHILS # (AUTO) 0.1 10^3/uL (0.0-0.2); ABSOLUTE EOSINOPHILS # (AUTO) 0.2 10^3/uL (0.0-0.6); ABSOLUTE LYMPHOCYTES (AUTO) 1.9 10^3/uL (0.5-4.7); ABSOLUTE MONOCYTES (AUTO) 0.9 10^3/uL (0.1-1.4); ABSOLUTE NEUT (AUTO) 7.3 10^3/uL (1.7-8.2); BASOPHILS % (AUTO) 0.6 % (0-2); HEMATOCRIT 25.7 % (37.9-51.0); HEMOGLOBIN 8.9 g/dL (13.5-17.0); LYMPHOCYTES % (AUTO) 18.5 % (13-45); MEAN CORPUSCULAR HEMOGLOBIN 30.5 pg (27.0-33.4); MEAN CORPUSCULAR HGB CONC 34.7 g/dL (32.0-36.0); MEAN CORPUSCULAR VOLUME 88 fl (80-97); MONOCYTES % (AUTO) 8.4 % (3-13); PLATELET COUNT 464 10^3/uL (150-450); RED BLOOD COUNT 2.92 10^6/uL (4.35-5.55); RED CELL DISTRIBUTION WIDTH 12.9 % (11.5-14.0); SEGMENTED NEUTROPHILS % (AUTO) 70.5 % (42-78); TOTAL CELLS COUNTED % (AUTO) 100 %; WHITE BLOOD COUNT 10.3 10^3/uL (4.0-10.5)
[2020-04-08 05:11] LABS: ANION GAP 7 (5-19); BLOOD UREA NITROGEN 14 mg/dL (7-20); CALCIUM 8.3 mg/dL (8.4-10.2); CARBON DIOXIDE 29 mmol/L (22-30); CHLORIDE 97 mmol/L (98-107); GLUCOSE 230 mg/dL (75-110); POTASSIUM 4.7 mmol/L (3.6-5.0)
[2020-04-08] MEDS: CYCLOBENZAPRINE HCL 10 MG TABLET PO SCH ×3 (05:39→21:51)
[2020-04-08] MEDS: GABAPENTIN 300 MG CAPSULE PO SCH ×3 (05:39→21:51)
[2020-04-08] MEDS: MEROPENEM 1 GM in NORMAL SALINE 50 ML IV SCH ×3 (05:40→21:52)
[2020-04-08] MEDS: INSULIN LISPRO 100 UNIT/ML 3 ML VIAL SUBCUT SCH ×7 (07:35→22:33)
--- NOTE | 2020-04-08 10:28 | PDOC PROGRESS REPORT ---
Subjective Progress Note for:: 04/08/20 Reason For Visit: PUNCTURE WOUND OF RIGHT FOOT WITH COMPLICATION Physical Exam Vital Signs: Temp Pulse Resp BP Pulse Ox 98.2 F 85 16 132/72 H 95 04/08/20 08:00 04/08/20 08:00 04/08/20 08:00 04/08/20 08:00 04/08/20 08:00 Intake & Output 04/07/20 04/08/20 04/09/20 06:59 06:59 06:59 Intake Total 2875 2840 Output Total 4410 2840 Balance -1535 0 Weight 133.6 kg 105.8 kg General appearance: PRESENT: no acute distress Head exam: PRESENT: normocephalic Eye exam: PRESENT: EOMI Ear exam: PRESENT: normal external ear exam Mouth exam: PRESENT: moist Neck exam: PRESENT: full ROM Respiratory exam: PRESENT: clear to auscultation so Cardiovascular exam: PRESENT: RRR Pulses: PRESENT: normal radial pulses, normal femoral pulses Vascular exam: PRESENT: normal capillary refill Breast: PRESENT: Normal GI/Abdominal exam: PRESENT: soft Rectal exam: PRESENT: deferred Extremities exam: PRESENT: other - rt bka stump examined wound clean drain in place ]redressed with kerlix,xeroform and shantell wrap. Neurological exam: PRESENT: alert Psychiatric exam: PRESENT: appropriate affect Skin exam: PRESENT: dry Results Laboratory Results: 04/08/20 04:22 04/08/20 04:22 04/08/20 04/08/20 04:22 04:22 WBC 10.3 RBC 2.92 L Hgb 8.9 L Hct 25.7 L MCV 88 MCH 30.5 MCHC 34.7 RDW 12.9 Plt Count 464 H Seg Neutrophils % 70.5 Sodium 133.1 L Potassium 4.7 Chloride 97 L Carbon Dioxide 29 Anion Gap 7 BUN 14 Creatinine 1.12 Est GFR ( Amer) > 60 Glucose 230 H Calcium 8.3 L 03/23/20 03/26/20 04:37 08:05 Creatine Kinase 46 L 181 H Impressions: Foot X-Ray 03/22/20 11:54 IMPRESSION: Soft tissue air concerning for infection with a gas producing organism. Lower Extremity CT 03/22/20 13:26 IMPRESSION: Deep-seated wound infection without evidence of organized abscess or osteomyelitis. Assessment & Plan - Time Anticipated Discharge Disposition: Home, Self Care Anticipated Discharge Timeframe: unk - Plan Summary Plan Summary: s/p rt bka with multiple revisions \now wound closed dressing removed this am wound clean skin edges appear well vascularized plan cont iv abx remove drain in 1-2 days.
[2020-04-08] MEDS: INSULIN GLARGINE,HUM.REC.ANLOG 1,000 UNIT/10 ML VIAL SUBCUT SCH ×2 (10:41→23:20)
[2020-04-08] MEDS: NIFEDIPINE 30 MG TAB.ER.24 PO SCH ×2 (10:42→22:32)
[2020-04-08] MEDS: FAMOTIDINE 20 MG TABLET PO SCH ×2 (10:42→21:51)
[2020-04-08] MEDS: DOCUSATE SODIUM 100 MG CAPSULE PO SCH ×2 (10:42→18:08)
--- NOTE | 2020-04-08 12:08 | PDOC PROGRESS REPORT ---
Subjective Progress Note for:: 04/08/20 Subjective:: 49 year old male with history of borderline diabetes, who presents to the hospital for evaluation of right foot pain and swelling. Patient had an accidental injury after stepping on a nail. This happened 4 days ago. In the interim, his right foot has become progressively swollen and painful and has become erythematous. He went to the clinic to get a tetanus shot today and got a tetanus shot given and was referred to the ER. He denies any drainage from the site. Denies any fever or chills. Told he has history of borderline diabetes and he is blood sugar usually ranges between 1 20-1 60s but has been eating poorly recently and thinks that is why his blood sugars were high. 04/08/2020-patient admitted with right foot pain and swelling after stepping on a nail. 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 The right BKA stump is wrapped with Idris wrap. Patient showed me the pictures looks like wound is healing well. Surgery is on board. Denies any pain at the time of my examination. Patient is presently on Zyvox and meropenem. Reason For Visit: PUNCTURE WOUND OF RIGHT FOOT WITH COMPLICATION Physical Exam Vital Signs: Temp Pulse Resp BP Pulse Ox 97.7 F 91 16 136/77 H 95 04/08/20 10:27 04/08/20 10:27 04/08/20 10:27 04/08/20 10:27 04/08/20 10:27 Intake & Output 04/07/20 04/08/20 04/09/20 06:59 06:59 06:59 Intake Total 2875 3140 Output Total 4410 2840 Balance -1535 300 Weight 133.6 kg 105.8 kg General appearance: PRESENT: no acute distress, morbidly obese Head exam: PRESENT: atraumatic Eye exam: PRESENT: PERRLA Ear exam: PRESENT: normal external ear exam Mouth exam: PRESENT: neck supple Teeth exam: PRESENT: poor dentation Neck exam: ABSENT: carotid bruit, JVD, lymphadenopathy, thyromegaly Respiratory exam: PRESENT: decreased breath sounds Cardiovascular exam: PRESENT: RRR. ABSENT: diastolic murmur, rubs, systolic murmur GI/Abdominal exam: PRESENT: normal bowel sounds, soft. ABSENT: distended, guarding, mass, organolmegaly, rebound, tenderness Rectal exam: PRESENT: deferred Extremities exam: PRESENT: other Neurological exam: PRESENT: alert, awake, oriented to person, oriented to place, oriented to time, oriented to situation, CN II-XII grossly intact. ABSENT: motor sensory deficit Psychiatric exam: PRESENT: appropriate affect, normal mood. ABSENT: homicidal ideation, suicidal ideation Results Laboratory Results: 04/08/20 04:22 04/08/20 04:22 04/08/20 04/08/20 04:22 04:22 WBC 10.3 RBC 2.92 L Hgb 8.9 L Hct 25.7 L MCV 88 MCH 30.5 MCHC 34.7 RDW 12.9 Plt Count 464 H Seg Neutrophils % 70.5 Sodium 133.1 L Potassium 4.7 Chloride 97 L Carbon Dioxide 29 Anion Gap 7 BUN 14 Creatinine 1.12 Est GFR ( Amer) > 60 Glucose 230 H Calcium 8.3 L 03/23/20 03/26/20 04:37 08:05 Creatine Kinase 46 L 181 H Impressions: Foot X-Ray 03/22/20 11:54 IMPRESSION: Soft tissue air concerning for infection with a gas producing organism. Lower Extremity CT 03/22/20 13:26 IMPRESSION: Deep-seated wound infection without evidence of organized abscess or osteomyelitis. Assessment and Plan - Diagnosis (1) Necrotizing fasciitis of lower leg Is this a current diagnosis for this admission?: Yes Plan: Gas gangrene secondary to trauma from stepping on a nail Has been to the OR several times during this hospitalization. Initial operative intervention 03/22/20. Wound debridement on 03/23/20. BKA performed on 03/26/2020. Additional surgical debridement on 03/27/20. 03/30/20, and 04/01/20. Deep wound cultures are growing Clostridium perfringens, Clostridium Sodelli, Enterobacter, bacillus species, and Aeromonas Most recent wound cultures positive for Enterobacter cloacae and Clostridium perfringens Additional wound cultures pending. Surgery following and managing Initially was on vancomycin, Zosyn and completed 48 hours of clindamycin. Then vancomycin and meropenem. Vancomycin then discontinued r/t SHELBY. Have started Linezolid (03/27/20). ID was consulted and made recommendations for ABX. Also indicates end date of treatment of 03/29/2020 given source control achieved. As source control is not assured (continued progression of necrosis necessitating additional debridement and possible further amputation); will re-consult ID. ? benefit of Rifampin, although patient does not have MRSA Pain medications as below. 9/7F/U with ID as needed Surgical plan is for takedown the wound VAC in 24 to 48 hours in the OR and furt her plans will depend on findings. Continue to adjust analgesic for optimal pain control 04/03 continue with pain management 04/04Patient went to the OR today again. It appears wound appears to be healing well with pink granulation as per surgical notes. Infectious disease consultation also noted. 04/05 and continues to complain of pain despite the minimal adverse findings as above. No changes will be made from my and regarding his analgesia today 04/06He status post stump revision and completion amputation 04/07 postop day 1 status post stump revision and completion amputation. Patient has his usual complaints of pain 04/08-patient is doing well. Wound is healing well. (2) Essential hypertension Is this a current diagnosis for this admission?: Yes Plan: Controlled blood pressures. Ensure adequate pain management. Continue Procardia 60 mg every 12 hour IV hydralazine as needed for blood pressure control. 04/08/2020-blood pressure today is 132/72. Stable. Plan is to continue the present management at this time. (3) Uncontrolled diabetes mellitus Qualifiers: Diabetes mellitus type: type 2 Glycemic state: with hyperglycemia Qualified Code(s): E11.65 - Type 2 diabetes mellitus with hyperglycemia Is this a current diagnosis for this admission?: Yes Plan: Blood sugar better controlled with improved infection control 04/08/2020-blood sugar this morning is 214. Plan is to continue insulin sliding scale coverage. Hemoglobin A1c is 13.5. Diet exercise weight loss lifestyle modifications discussed with the patient. Continue Lantus 15 units twice a day. Patient is also receiving Humalog 8 units prior to meals. (4) Morbid obesity with BMI of 40.0-44.9, adult Is this a current diagnosis for this admission?: No Plan: He will benefit from weight loss - Plan Summary Summary: Multiple organisms including Enterobacter, Clostridium, Aeromonas, multiple species of Clostridium growing which is consistent with this necrotizing fasciitis. Please see infectious disease notes. Patient is currently on linezolid and meropenem. Please follow-up and adjust antibiotics as suggested by ID - Time Anticipated Discharge Disposition: Home with Home Health Anticipated Discharge Timeframe: within 72 hours
[2020-04-08] MEDS: NORMAL SALINE 1000 ML 1,000 ML IV PRN (18:06)
[2020-04-08] MEDS: ATORVASTATIN CALCIUM 40 MG TABLET PO SCH (21:51)
[2020-04-09] MEDS: ACETAMINOPHEN 1,000 MG/100 ML RTUPB IV SCH ×4 (00:56→17:08)
[2020-04-09] MEDS: HYDROMORPHONE HCL INJ/PF 2 MG/ML AMPULE IV PRN ×5 (01:02→22:17)
[2020-04-09] MEDS: HYDROCODONE/ACETAMINOPHEN 10-325 MG TABLET PO PRN ×4 (02:22→23:58)
[2020-04-09] MEDS: KETOROLAC TROMETHAMINE INJ/PF 30 MG/1 ML SDV IV SCH ×4 (05:23→23:57)
[2020-04-09] MEDS: GABAPENTIN 300 MG CAPSULE PO SCH ×3 (05:25→22:03)
[2020-04-09] MEDS: CYCLOBENZAPRINE HCL 10 MG TABLET PO SCH ×3 (05:25→22:03)
[2020-04-09] MEDS: MEROPENEM 1 GM in NORMAL SALINE 50 ML IV SCH (05:32)
[2020-04-09 06:55] LABS: ABSOLUTE BASOPHILS # (AUTO) 0.1 10^3/uL (0.0-0.2); ABSOLUTE EOSINOPHILS # (AUTO) 0.3 10^3/uL (0.0-0.6); ABSOLUTE LYMPHOCYTES (AUTO) 2.7 10^3/uL (0.5-4.7); ABSOLUTE MONOCYTES (AUTO) 0.9 10^3/uL (0.1-1.4); ABSOLUTE NEUT (AUTO) 3.7 10^3/uL (1.7-8.2); BASOPHILS % (AUTO) 0.9 % (0-2); EOSINOPHILS % (AUTO) 3.8 % (0-6); HEMATOCRIT 26.2 % (37.9-51.0); HEMOGLOBIN 9.2 g/dL (13.5-17.0); LYMPHOCYTES % (AUTO) 35.2 % (13-45); MEAN CORPUSCULAR HEMOGLOBIN 31.1 pg (27.0-33.4); MEAN CORPUSCULAR HGB CONC 35.1 g/dL (32.0-36.0); MEAN CORPUSCULAR VOLUME 89 fl (80-97); MONOCYTES % (AUTO) 11.8 % (3-13); PLATELET COUNT 450 10^3/uL (150-450); RED BLOOD COUNT 2.95 10^6/uL (4.35-5.55); RED CELL DISTRIBUTION WIDTH 13.5 % (11.5-14.0); SEGMENTED NEUTROPHILS % (AUTO) 48.3 % (42-78); TOTAL CELLS COUNTED % (AUTO) 100 %; WHITE BLOOD COUNT 7.6 10^3/uL (4.0-10.5)
[2020-04-09 07:19] LABS: ALBUMIN 2.9 g/dL (3.5-5.0); ALKALINE PHOSPHATASE 65 U/L (38-126); ANION GAP 7 (5-19); ASPARTATE AMINO TRANSFERASE 37 U/L (17-59); BILIRUBIN,DIRECT 0.3 mg/dL (0.0-0.4); BILIRUBIN,TOTAL 0.4 mg/dL (0.2-1.3); BLOOD UREA NITROGEN 11 mg/dL (7-20); CALCIUM 8.6 mg/dL (8.4-10.2); CARBON DIOXIDE 30 mmol/L (22-30); CHLORIDE 98 mmol/L (98-107); GLUCOSE 157 mg/dL (75-110); POTASSIUM 4.6 mmol/L (3.6-5.0); TOTAL PROTEIN 5.7 g/dL (6.3-8.2)
--- NOTE | 2020-04-09 08:42 | PDOC PROGRESS REPORT ---
Subjective Progress Note for:: 04/09/20 Reason For Visit: PUNCTURE WOUND OF RIGHT FOOT WITH COMPLICATION Minimal drain output; patient ambulating with walker. Physical Exam Vital Signs: Temp Pulse Resp BP Pulse Ox 97.9 F 80 18 137/70 H 97 04/09/20 08:05 04/09/20 01:15 04/08/20 20:10 04/09/20 01:15 04/09/20 01:15 Intake & Output 04/08/20 04/09/20 04/10/20 06:59 06:59 06:59 Intake Total 3240 3300 Output Total 2840 4380 Balance 400 -1080 Weight 105.8 kg 105.6 kg General appearance: PRESENT: no acute distress Musculoskeletal exam: PRESENT: other - Entire dressing removed; drain removed. Flaps look excellent. All courtney intact. No hematoma, no cellulitis. Stump rewrapped Results Laboratory Results: 04/09/20 06:36 04/09/20 06:36 04/09/20 04/09/20 06:36 06:36 WBC 7.6 RBC 2.95 L Hgb 9.2 L Hct 26.2 L MCV 89 MCH 31.1 MCHC 35.1 RDW 13.5 Plt Count 450 Seg Neutrophils % 48.3 Sodium 135.1 L Potassium 4.6 Chloride 98 Carbon Dioxide 30 Anion Gap 7 BUN 11 Creatinine 1.08 Est GFR ( Amer) > 60 Glucose 157 H Calcium 8.6 Magnesium 2.0 Total Bilirubin 0.4 AST 37 Alkaline Phosphatase 65 Total Protein 5.7 L Albumin 2.9 L 03/23/20 03/26/20 04:37 08:05 Creatine Kinase 46 L 181 H Impressions: Foot X-Ray 03/22/20 11:54 IMPRESSION: Soft tissue air concerning for infection with a gas producing organism. Lower Extremity CT 03/22/20 13:26 IMPRESSION: Deep-seated wound infection without evidence of organized abscess or osteomyelitis. Assessment & Plan - Diagnosis (1) Puncture wound of right foot with complication Qualifiers: Encounter type: initial encounter Qualified Code(s): S91.331A - Puncture wound without foreign body, right foot, initial encounter Is this a current diagnosis for this admission?: Yes Plan: Impression: Right BKA a stump, closed, drain out, flaps in excellent condition; no indication for further intervention Recommendations: 1. Patient may be discharged home from surgical standpoint with local wound care consisting of: Soapy water wash, Xeroform over staple line, Kerlix and 6 inch Idris wrap. 2. Patient can follow-up with [facility] in 1 to 2 weeks after discharge for stump evaluation. 3. Patient will be an appropriate candidate for prosthetic evaluation as cleared by general surgery on outpatient basis. 4. Surgery will sign off at this time; reconsult if clinically indicated. (2) Diabetes mellitus Is this a current diagnosis for this admission?: No (3) Hyperglycemia due to diabetes mellitus Is this a current diagnosis for this admission?: Yes (4) Morbid obesity with BMI of 40.0-44.9, adult Is this a current diagnosis for this admission?: No - Time Time Spent: 30 to 50 Minutes Critical Time spent with patient: Less than 15 minutes Medications reviewed and adjusted accordingly: Yes Anticipated Discharge Disposition: Home with Home Health Anticipated Discharge Timeframe: within 24 hours
[2020-04-09] MEDS: DOCUSATE SODIUM 100 MG CAPSULE PO SCH ×2 (09:03→17:08)
[2020-04-09] MEDS: FAMOTIDINE 20 MG TABLET PO SCH ×2 (09:07→22:03)
[2020-04-09] MEDS: NIFEDIPINE 30 MG TAB.ER.24 PO SCH ×2 (09:08→22:17)
[2020-04-09] MEDS: INSULIN LISPRO 100 UNIT/ML 3 ML VIAL SUBCUT SCH ×8 (09:08→22:09)
[2020-04-09] MEDS: INSULIN GLARGINE,HUM.REC.ANLOG 1,000 UNIT/10 ML VIAL SUBCUT SCH ×2 (09:09→22:03)
[2020-04-09] MEDS: LINEZOLID 600 MG/300 ML RTUPB IV SCH (09:14)
--- NOTE | 2020-04-09 09:49 | PDOC PROGRESS REPORT ---
Subjective Progress Note for:: 04/09/20 Subjective:: 49 year old male with history of borderline diabetes, who presents to the hospital for evaluation of right foot pain and swelling. Patient had an accidental injury after stepping on a nail. This happened 4 days ago. In the interim, his right foot has become progressively swollen and painful and has become erythematous. He went to the clinic to get a tetanus shot today and got a tetanus shot given and was referred to the ER. He denies any drainage from the site. Denies any fever or chills. Told he has history of borderline diabetes and he is blood sugar usually ranges between 1 20-1 60s but has been eating poorly recently and thinks that is why his blood sugars were high. 04/08/2020-patient admitted with right foot pain and swelling after stepping on a nail. 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 The right BKA stump is wrapped with Idris wrap. Patient showed me the pictures looks like wound is healing well. Surgery is on board. Denies any pain at the time of my examination. Patient is presently on Zyvox and meropenem. 04/09/2020-latest wound cultures came back negative. Plan is to discontinue IV Zyvox and IV meropenem at this time. To discontinue IV fluids. WBC count is 7600. To assess the wound tomorrow morning and most likely will go home [place]. Reason For Visit: PUNCTURE WOUND OF RIGHT FOOT WITH COMPLICATION Physical Exam Vital Signs: Temp Pulse Resp BP Pulse Ox 97.9 F 86 18 135/78 H 95 04/09/20 08:05 04/09/20 08:00 04/09/20 08:00 04/09/20 08:00 04/09/20 08:00 Intake & Output 04/08/20 04/09/20 04/10/20 06:59 06:59 06:59 Intake Total 3240 3600 Output Total 2840 4380 Balance 400 -780 Weight 105.8 kg 105.6 kg General appearance: PRESENT: no acute distress, obese Head exam: PRESENT: atraumatic Eye exam: PRESENT: PERRLA Ear exam: PRESENT: normal external ear exam Mouth exam: PRESENT: neck supple Teeth exam: PRESENT: poor dentation Neck exam: ABSENT: carotid bruit, JVD, lymphadenopathy, thyromegaly Respiratory exam: PRESENT: decreased breath sounds Cardiovascular exam: PRESENT: RRR. ABSENT: diastolic murmur, rubs, systolic murmur GI/Abdominal exam: PRESENT: normal bowel sounds, soft. ABSENT: distended, guarding, mass, organolmegaly, rebound, tenderness Rectal exam: PRESENT: deferred Extremities exam: PRESENT: other - Patient has a right BKA. Wound is healing well as per the surgical team. Neurological exam: PRESENT: alert, awake, oriented to person, oriented to place, oriented to time, oriented to situation, CN II-XII grossly intact. ABSENT: motor sensory deficit Psychiatric exam: PRESENT: appropriate affect, normal mood. ABSENT: homicidal ideation, suicidal ideation Results Laboratory Results: 04/09/20 06:36 04/09/20 06:36 04/09/20 04/09/20 06:36 06:36 WBC 7.6 RBC 2.95 L Hgb 9.2 L Hct 26.2 L MCV 89 MCH 31.1 MCHC 35.1 RDW 13.5 Plt Count 450 Seg Neutrophils % 48.3 Sodium 135.1 L Potassium 4.6 Chloride 98 Carbon Dioxide 30 Anion Gap 7 BUN 11 Creatinine 1.08 Est GFR ( Amer) > 60 Glucose 157 H Calcium 8.6 Magnesium 2.0 Total Bilirubin 0.4 AST 37 Alkaline Phosphatase 65 Total Protein 5.7 L Albumin 2.9 L 03/23/20 03/26/20 04:37 08:05 Creatine Kinase 46 L 181 H Impressions: Foot X-Ray 03/22/20 11:54 IMPRESSION: Soft tissue air concerning for infection with a gas producing organism. Lower Extremity CT 03/22/20 13:26 IMPRESSION: Deep-seated wound infection without evidence of organized abscess or osteomyelitis. Assessment and Plan - Diagnosis (1) Necrotizing fasciitis of lower leg Is this a current diagnosis for this admission?: Yes Plan: Gas gangrene secondary to trauma from stepping on a nail Has been to the OR several times during this hospitalization. Initial operative intervention 03/22/20. Wound debridement on 03/23/20. BKA performed on 03/26/2020. Additional surgical debridement on 03/27/20. 03/30/20, and 04/01/20. Deep wound cultures are growing Clostridium perfringens, Clostridium Sodelli, Enterobacter, bacillus species, and Aeromonas Most recent wound cultures positive for Enterobacter cloacae and Clostridium perfringens Additional wound cultures pending. Surgery following and managing Initially was on vancomycin, Zosyn and completed 48 hours of clindamycin. Then vancomycin and meropenem. Vancomycin then discontinued r/t SHELBY. Have started Linezolid (03/27/20). ID was consulted and made recommendations for ABX. Also indicates end date of treatment of 03/29/2020 given source control achieved. As source control is not assured (continued progression of necrosis necessitating additional debridement and possible further amputation); will re-consult ID. ? benefit of Rifampin, although patient does not have MRSA Pain medications as below. /U with ID as needed Surgical plan is for takedown the wound VAC in 24 to 48 hours in the OR and further plans will depend on findings. Continue to adjust analgesic for optimal pain control 04/03 continue with pain management 04/04Patient went to the OR today again. It appears wound appears to be healing well with pink granulation as per surgical notes. Infectious disease c onsultation also noted. 04/05 and continues to complain of pain despite the minimal adverse findings as above. No changes will be made from my and regarding his analgesia today 04/06He status post stump revision and completion amputation 04/07 postop day 1 status post stump revision and completion amputation. Patient has his usual complaints of pain 04/08-patient is doing well. Wound is healing well. 04/09/2020-surgery signed off. Wound cultures are negative. To discontinue Zosyn and IV meropenem at this time to reassess the wound tomorrow. (2) Essential hypertension Is this a current diagnosis for this admission?: Yes Plan: Controlled blood pressures. Ensure adequate pain management. Continue Procardia 60 mg every 12 hour IV hydralazine as needed for blood pressure control. 04/08/2020-blood pressure today is 132/72. Stable. Plan is to continue the present management at this time. 04/09/2020-blood pressure today is 132/70. Stable. (3) Uncontrolled diabetes mellitus Qualifiers: Diabetes mellitus type: type 2 Glycemic state: with hyperglycemia Qualified Code(s): E11.65 - Type 2 diabetes mellitus with hyperglycemia Is this a current diagnosis for this admission?: Yes Plan: Blood sugar better controlled with improved infection control 04/08/2020-blood sugar this morning is 214. Plan is to continue insulin sliding scale coverage. Hemoglobin A1c is 13.5. Diet exercise weight loss lifestyle modifications discussed with the patient. Continue Lantus 15 units twice a day. Patient is also receiving Humalog 8 units prior to meals. 04/09/2020-latest blood sugar is 151. Hemoglobin A1c 13.5. And is to continue the present management at this time. (4) Morbid obesity with BMI of 40.0-44.9, adult Is this a current diagnosis for this admission?: No Plan: He will benefit from weight loss - Plan Summary Summary: Multiple organisms including Enterobacter, Clostridium, Aeromonas, multiple species of Clostridium growing which is consistent with this necrotizing fasciitis. Please see infectious disease notes. Patient is currently on nikky ezolid and meropenem. Please follow-up and adjust antibiotics as suggested by ID - Time Anticipated Discharge Disposition: Home, Self Care Anticipated Discharge Timeframe: within 24 hours
[2020-04-09] MEDS: ATORVASTATIN CALCIUM 40 MG TABLET PO SCH (22:03)
[2020-04-10] MEDS: HYDROMORPHONE HCL INJ/PF 2 MG/ML AMPULE IV PRN ×2 (04:15→08:59)
[2020-04-10] MEDS: CYCLOBENZAPRINE HCL 10 MG TABLET PO SCH ×2 (05:25→14:03)
[2020-04-10] MEDS: KETOROLAC TROMETHAMINE INJ/PF 30 MG/1 ML SDV IV SCH ×3 (05:25→18:42)
[2020-04-10] MEDS: GABAPENTIN 300 MG CAPSULE PO SCH ×2 (05:25→14:03)
[2020-04-10 06:42] LABS: ABSOLUTE BASOPHILS # (AUTO) 0.1 10^3/uL (0.0-0.2); ABSOLUTE EOSINOPHILS # (AUTO) 0.3 10^3/uL (0.0-0.6); ABSOLUTE LYMPHOCYTES (AUTO) 2.3 10^3/uL (0.5-4.7); ABSOLUTE MONOCYTES (AUTO) 0.7 10^3/uL (0.1-1.4); ABSOLUTE NEUT (AUTO) 4.2 10^3/uL (1.7-8.2); EOSINOPHILS % (AUTO) 3.8 % (0-6); HEMATOCRIT 29.8 % (37.9-51.0); HEMOGLOBIN 10.2 g/dL (13.5-17.0); LYMPHOCYTES % (AUTO) 30.8 % (13-45); MEAN CORPUSCULAR HEMOGLOBIN 30.3 pg (27.0-33.4); MEAN CORPUSCULAR HGB CONC 34.2 g/dL (32.0-36.0); MEAN CORPUSCULAR VOLUME 89 fl (80-97); MONOCYTES % (AUTO) 8.8 % (3-13); PLATELET COUNT 518 10^3/uL (150-450); RED BLOOD COUNT 3.36 10^6/uL (4.35-5.55); RED CELL DISTRIBUTION WIDTH 13.6 % (11.5-14.0); SEGMENTED NEUTROPHILS % (AUTO) 55.6 % (42-78); TOTAL CELLS COUNTED % (AUTO) 100 %; WHITE BLOOD COUNT 7.6 10^3/uL (4.0-10.5)
[2020-04-10 07:14] LABS: ANION GAP 8 (5-19); BLOOD UREA NITROGEN 11 mg/dL (7-20); CALCIUM 9.2 mg/dL (8.4-10.2); CARBON DIOXIDE 34 mmol/L (22-30); CHLORIDE 96 mmol/L (98-107); GLUCOSE 112 mg/dL (75-110); POTASSIUM 4.3 mmol/L (3.6-5.0)
[2020-04-10] MEDS: INSULIN LISPRO 100 UNIT/ML 3 ML VIAL SUBCUT SCH ×6 (09:02→18:41)
[2020-04-10] MEDS: INSULIN GLARGINE,HUM.REC.ANLOG 1,000 UNIT/10 ML VIAL SUBCUT SCH (09:03)
[2020-04-10] MEDS: NIFEDIPINE 30 MG TAB.ER.24 PO SCH (09:08)
[2020-04-10] MEDS: FAMOTIDINE 20 MG TABLET PO SCH (09:08)
[2020-04-10] MEDS: DOCUSATE SODIUM 100 MG CAPSULE PO SCH ×2 (09:09→18:42)
[2020-04-10] MEDS: HYDROCODONE/ACETAMINOPHEN 10-325 MG TABLET PO PRN ×2 (11:15→15:08)
--- NOTE | 2020-04-10 16:36 | PDOC DISCHARGE SUMMARY ---
Impression - Admit/DC Date/PCP Admission Date/Primary Care Provider: 03/22/20 13:43 Discharge Date: 04/10/20 - Assessment Summary: Multiple organisms including Enterobacter, Clostridium, Aeromonas, multiple species of Clostridium growing which is consistent with this necrotizing fasciitis. Please see infectious disease notes. Patient is currently on linezolid and meropenem. Please follow-up and adjust antibiotics as suggested by ID - Additional Information Resuscitation Status: Full Code Discharge Diet: Diabetic Discharge Activity: Activity As Tolerated, Balance Activity w/Rest Referrals: [facility] [Outside] (They will contact you to schedule a tele-health appointment.) LUCIEN SPRINGER MD [ACTIVE STAFF] - 04/09/20 10:45 am Prescriptions: Cyclobenzaprine HCl [Flexeril 10 mg Tablet] 5 mg PO Q8HP PRN #15 tablet PRN Reason: Syringe and Needle,Insulin,1Ml [Insulin Syringe] 1 each SQ BIDACBSP PRN #60 disp.syrin PRN Reason: Atorvastatin Calcium [Lipitor 40 mg Tablet] 40 mg PO QHS #30 tablet Gabapentin [Neurontin 300 mg Capsule] 300 mg PO Q8 #90 capsule Hydrocodone/Acetaminophen [Moosup 10-325 mg Tablet] 1 tab PO Q6HP PRN #20 tablet PRN Reason: Famotidine [Pepcid 20 mg Tablet] 20 mg PO Q12 #60 tablet Nifedipine [Procardia XL 30 mg Tablet] 60 mg PO Q12 #60 tab.er.24 Insulin NPH Hum/Reg Insulin Hm [Relion Novolin 70-30 Vial] 15 unit SQ BIDACBSP PRN #1 vial PRN Reason: Home Medications: Atorvastatin Calcium [Lipitor 40 mg Tablet] 40 mg PO QHS #30 tablet 04/10/20 Cyclobenzaprine HCl [Flexeril 10 mg Tablet] 5 mg PO Q8HP PRN #15 tablet 04/10/20 Famotidine [Pepcid 20 mg Tablet] 20 mg PO Q12 #60 tablet 04/10/20 Gabapentin [Neurontin 300 mg Capsule] 300 mg PO Q8 #90 capsule 04/10/20 Hydrocodone/Acetaminophen [[place] 10-325 mg Tablet] 1 tab PO Q6HP PRN #20 tablet 04/10/20 Insulin NPH Hum/Reg Insulin Hm [Relion Novolin 70-30 Vial] 15 unit SQ BIDACBSP PRN #1 vial 04/10/20 Nifedipine [Procardia XL 30 mg Tablet] 60 mg PO Q12 #60 tab.er.24 04/10/20 Syringe and Needle,Insulin,1Ml [Insulin Syringe] 1 each SQ BIDACBSP PRN #60 disp.syrin 04/10/20 History of Present Illiness History of Present Illness: Per Admitting Physician: "CHRIS WEAVER is a 49 year old male with history of borderline diabetes, who presents to the hospital for evaluation of right foot pain and swelling. Patient had an accidental injury after stepping on a nail. This happened 4 days ago. In the interim, his right foot has become progressively swollen and painful and has become erythematous. He went to the clinic to get a tetanus shot today and got a tetanus shot given and was referred to the ER. He denies any drainage from the site. Denies any fever or chills. Told he has history of borderline diabetes and he is blood sugar usually ranges between 1 20-1 60s but has been eating poorly recently and thinks that is why his blood sugars were high." Hospital Course Hospital Course: Per previous physician: "49 year old male with history of borderline diabetes, who presents to the hospital for evaluation of right foot pain and swelling. Patient had an accidental injury after stepping on a nail. This happened 4 days ago. In the interim, his right foot has become progressively swollen and painful and has become erythematous. He went to the clinic to get a tetanus shot today and got a tetanus shot given and was referred to the ER. He denies any drainage from the site. Denies any fever or chills. Told he has history of borderline diabetes and he is blood sugar usually ranges between 1 20-1 60s but has been eating poorly recently and thinks that is why his blood sugars were high. 04/08/2020-patient admitted with right foot pain and swelling after stepping on a nail. 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 The right BKA stump is wrapped with Idris wrap. Patient showed me the pictures looks like wound is healing well. Surgery is on board. Denies any pain at the time of my examination. Patient is presently on Zyvox and meropenem. 04/09/2020-latest wound cultures came back negative. Plan is to discontinue IV Zyvox and IV meropenem at this time. To discontinue IV fluids. WBC count is 7600. To assess the wound tomorrow morning and most likely will go home tomorrow." (1) Necrotizing fasciitis of lower leg Is this a current diagnosis for this admission?: Yes Plan: Gas gangrene secondary to trauma from stepping on a nail Has been to the OR several times during this hospitalization. Initial operative intervention 03/22/20. Wound debridement on 03/23/20. BKA performed on 03/26/2020. Additional surgical debridement on 03/27/20. 03/30/20, and 04/01/20. Deep wound cultures are growing Clostridium perfringens, Clostridium Sodelli, Enterobacter, bacillus species, and Aeromonas Most recent wound cultures positive for Enterobacter cloacae and Clostridium perfringens Additional wound cultures pending. Surgery following and managing Initially was on vancomycin, Zosyn and completed 48 hours of clindamycin. Then vancomycin and meropenem. Vancomycin then discontinued r/t SHELBY. Have started Linezolid (03/27/20). ID was consulted and made recommendations for ABX. Also indicates end date of treatment of 03/29/2020 given source control achieved. As source control is not assured (continued progression of necrosis necessitating additional debridement and possible further amputation) Pain medications as below. /U with ID as needed Surgical plan is for takedown the wound VAC in 24 to 48 hours in the OR and further plans will depend on findings. Continue to adjust analgesic for optimal pain control 04/03 continue with pain management 04/04Patient went to the OR today again. It appears wound appears to be healing well with pink granulation as per surgical notes. Infectious disease consultation also noted. 04/05 and continues to complain of pain despite the minimal adverse findings as above. No changes will be made from my and regarding his analgesia today 04/06He status post stump revision and completion amputation 04/07 postop day 1 status post stump revision and completion amputation. Patient has his usual complaints of pain 04/08-patient is doing well. Wound is healing well. 04/09/2020-surgery signed off. Wound cultures are negative. To discontinue Zosyn and IV meropenem at this time to reassess the wound tomorrow. Completed all antibiotics on 04/09, if infection recurs per ID patient will need vascular studies to ensure adequate blood flow to healing sites. (2) Essential hypertension Is this a current diagnosis for this admission?: Yes Plan: Controlled blood pressures. Ensure adequate pain management. Continue Procardia 60 mg every 12 hour 04/08/2020-blood pressure today is 132/72. Stable. Plan is to continue the present management at this time. 04/09/2020-blood pressure today is 132/70. Stable. (3) Uncontrolled diabetes mellitus Qualifiers: Diabetes mellitus type: type 2 Glycemic state: with hyperglycemia Qualified Code(s): E11.65 - Type 2 diabetes mellitus with hyperglycemia Is this a current diagnosis for this admission?: Yes Plan: Blood sugar better controlled with improved infection control 04/08/2020-blood sugar this morning is 214. Plan is to continue insulin sliding scale coverage. Hemoglobin A1c is 13.5. Diet exercise weight loss lifestyle modifications discussed with the patient. Continue Lantus 15 units twice a day. Patient is also receiving Humalog 8 units prior to meals. 04/09/2020-latest blood sugar is 151. Hemoglobin A1c 13.5. And is to continue the present management at this time. (4) Morbid obesity with BMI of 40.0-44.9, adult Is this a current diagnosis for this admission?: No Plan: He will benefit from weight loss Physical Exam Vital Signs: Temp Pulse Resp BP Pulse Ox 98.0 F 107 H 18 124/67 98 04/10/20 15:42 04/10/20 15:42 04/10/20 15:42 04/10/20 15:42 04/10/20 15:42 Intake & Output 04/09/20 04/10/20 04/11/20 06:59 06:59 06:59 Intake Total 3700 1875 750 Output Total 4380 5880 900 Balance -072 -2513 -150 Weight 105.6 kg 159.6 kg 153.9 kg General appearance: PRESENT: no acute distress, well-developed, well-nourished Head exam: PRESENT: atraumatic, normocephalic Eye exam: PRESENT: conjunctiva pink. ABSENT: scleral icterus Mouth exam: PRESENT: moist Respiratory exam: PRESENT: clear to auscultation so. ABSENT: rales, rhonchi, wheezes Cardiovascular exam: PRESENT: RRR. ABSENT: diastolic murmur, rubs, systolic murmur GI/Abdominal exam: PRESENT: normal bowel sounds, soft. ABSENT: distended, guarding, mass, organolmegaly, rebound, tenderness Extremities exam: PRESENT: other - Right BKA stump healing Neurological exam: PRESENT: alert, awake, oriented to person, oriented to place, oriented to time, oriented to situation Psychiatric exam: PRESENT: appropriate affect, normal mood Skin exam: PRESENT: dry, intact, warm Results Laboratory Results: WBC 7.6 10^3/uL (4.0-10.5) 04/10/20 06:14 RBC 3.36 10^6/uL (4.35-5.55) L 04/10/20 06:14 Hgb 10.2 g/dL (13.5-17.0) L 04/10/20 06:14 Hct 29.8 % (37.9-51.0) L 04/10/20 06:14 MCV 89 fl (80-97) 04/10/20 06:14 MCH 30.3 pg (27.0-33.4) 04/10/20 06:14 MCHC 34.2 g/dL (32.0-36.0) 04/10/20 06:14 RDW 13.6 % (11.5-14.0) 04/10/20 06:14 Plt Count 518 10^3/uL (150-450) H 04/10/20 06:14 Lymph % (Auto) 30.8 % (13-45) 04/10/20 06:14 Hinds % (Auto) 8.8 % (3-13) 04/10/20 06:14 Eos % (Auto) 3.8 % (0-6) 04/10/20 06:14 Baso % (Auto) 1.0 % (0-2) 04/10/20 06:14 Absolute Neuts (auto) 4.2 10^3/uL (1.7-8.2) 04/10/20 06:14 Absolute Lymphs (auto) 2.3 10^3/uL (0.5-4.7) 04/10/20 06:14 Absolute Monos (auto) 0.7 10^3/uL (0.1-1.4) 04/10/20 06:14 Absolute Eos (auto) 0.3 10^3/uL (0.0-0.6) 04/10/20 06:14 Absolute Basos (auto) 0.1 10^3/uL (0.0-0.2) 04/10/20 06:14 Seg Neutrophils % 55.6 % (42-78) 04/10/20 06:14 ESR 82 mm/hr (0-20) H 03/31/20 09:54 PT 14.2 SEC (11.4-15.4) 03/31/20 09:54 INR 1.08 03/31/20 09:54 APTT 37.5 SEC (23.5-35.8) H 03/31/20 09:54 D-Dimer 1.08 ug/mL (0.00-0.50) H 03/31/20 09:54 Sodium 137.6 mmol/L (137-145) 04/10/20 06:14 Potassium 4.3 mmol/L (3.6-5.0) 04/10/20 06:14 Chloride 96 mmol/L (98-107) L 04/10/20 06:14 Carbon Dioxide 34 mmol/L (22-30) H 04/10/20 06:14 Anion Gap 8 (5-19) 04/10/20 06:14 BUN 11 mg/dL (7-20) 04/10/20 06:14 Creatinine 1.03 mg/dL (0.52-1.25) 04/10/20 06:14 Est GFR ( Amer) > 60 (>60) 04/10/20 06:14 Est GFR (MDRD) Non-Af > 60 (>60) 04/10/20 06:14 Glucose 112 mg/dL (75-110) H 04/10/20 06:14 POC Glucose 131 mg/dL (70-110) H 04/10/20 15:39 Hemoglobin A1c % 13.5 % (4.7-6.0) H 03/23/20 04:37 Lactic Acid 0.9 mmol/L (0.7-2.1) 03/31/20 09:54 Calcium 9.2 mg/dL (8.4-10.2) 04/10/20 06:14 Magnesium 2.0 mg/dL (1.6-2.3) 04/09/20 06:36 Total Bilirubin 0.4 mg/dL (0.2-1.3) 04/09/20 06:36 Direct Bilirubin 0.3 mg/dL (0.0-0.4) 04/09/20 06:36 Neonat Total Bilirubin Not Reportable 04/09/20 06:36 Neonat Direct Bilirubin Not Reportable 04/09/20 06:36 Neonat Indirect Bili Not Reportable 04/09/20 06:36 AST 37 U/L (17-59) 04/09/20 06:36 ALT 19 U/L (<50) 04/09/20 06:36 Alkaline Phosphatase 65 U/L (38-126) 04/09/20 06:36 Creatine Kinase 181 U/L (55-170) H 03/26/20 08:05 C-Reactive Protein 180.7 mg/L (<10.0) H 03/31/20 09:54 Total Protein 5.7 g/dL (6.3-8.2) L 04/09/20 06:36 Albumin 2.9 g/dL (3.5-5.0) L 04/09/20 06:36 Triglycerides 114 mg/dL (<150) 03/23/20 04:37 Cholesterol 169.09 mg/dL (0-200) 03/23/20 04:37 LDL Cholesterol Direct 113 mg/dL (<100) H 03/23/20 04:37 VLDL Cholesterol 23.0 mg/dL (10-31) 03/23/20 04:37 HDL Cholesterol 38 mg/dL (>40) L 03/23/20 04:37 Urine Color YELLOW 03/26/20 22:30 Urine Appearance CLEAR 03/26/20 22:30 Urine pH 6.0 (5.0-9.0) 03/26/20 22:30 Ur Specific Hardwick 1.006 03/26/20 22:30 Urine Protein NEGATIVE mg/dL (NEGATIVE) 03/26/20 22:30 Urine Glucose (UA) NEGATIVE mg/dL (NEGATIVE) 03/26/20 22:30 Urine Ketones NEGATIVE mg/dL (NEGATIVE) 03/26/20 22:30 Urine Blood MODERATE (NEGATIVE) H 03/26/20 22:30 Urine Nitrite NEGATIVE (NEGATIVE) 03/26/20 22:30 Urine Bilirubin NEGATIVE (NEGATIVE) 03/26/20 22:30 Urine Urobilinogen NEGATIVE mg/dL (<2.0) 03/26/20 22:30 Ur Leukocyte Esterase NEGATIVE (NEGATIVE) 03/26/20 22:30 Urine WBC (Auto) 2 /HPF 03/26/20 22:30 Urine RBC (Auto) 3 /HPF 03/26/20 22:30 Urine Bacteria (Auto) TRACE /HPF 03/26/20 22:30 Squamous Epi Cells Auto <1 /HPF 03/26/20 22:30 Urine Mucus (Auto) RARE /LPF 03/26/20 22:30 Urine Ascorbic Acid NEGATIVE (NEGATIVE) 03/26/20 22:30 Time Trough Drawn 1530 03/26/20 14:42 Vancomycin Trough 23.6 ug/mL (5.0-20.0) H 03/26/20 14:42 SARS-CoV-2 (PCR) NEGATIVE (NEGATIVE) 03/24/20 12:20 Impressions: Foot X-Ray 03/22/20 11:54 IMPRESSION: Soft tissue air concerning for infection with a gas producing organism. Lower Extremity CT 03/22/20 13:26 IMPRESSION: Deep-seated wound infection without evidence of organized abscess or osteomyelitis. Plan Plan of Treatment: Follow-up with PCP Follow-up with surgery Diabetic diet Time Spent: Greater than 30 Minutes Stroke Is this a Stroke Patient?: No Acute Heart Failure Is this a Heart Failure Patient?: No
[2020-04-10 16:42] VITALS: BP 156/73
== END 2020-04-10 18:40 | disposition home health service (06) | DRG 463 ==
LOC: ER 10:20 → EH 13:43 → 4S 16:52
PROVIDERS: ATTEND Internal Medicine
PROC: 0JBQ0ZZ Excision of Right Foot Subcutaneous Tissue and Fascia, Open Approach (ICD-10-PCS; principal; 2020-03-22 14:30)
PROC: 0KBV0ZZ Excision of Right Foot Muscle, Open Approach (ICD-10-PCS; 2020-03-23)
PROC: 0Y6H0Z2 Detachment at Right Lower Leg, Mid, Open Approach (ICD-10-PCS; 2020-03-25)
PROC: 0Y6H0Z2 Detachment at Right Lower Leg, Mid, Open Approach (ICD-10-PCS; 2020-03-27)
PROC: 0QBJ0ZZ Excision of Right Fibula, Open Approach (ICD-10-PCS; 2020-03-30)
PROC: 0QBG0ZZ Excision of Right Tibia, Open Approach (ICD-10-PCS; 2020-03-30)
PROC: 0KBS0ZZ Excision of Right Lower Leg Muscle, Open Approach (ICD-10-PCS; 2020-04-01)
PROC: 0KDS0ZZ Extraction of Right Lower Leg Muscle, Open Approach (ICD-10-PCS; 2020-04-04)
PROC: 0Y6H0Z1 Detachment at Right Lower Leg, High, Open Approach (ICD-10-PCS; 2020-04-06)
DX: M72.6 Necrotizing fasciitis (principal); A48.0 Gas gangrene; E11.52 Type 2 diabetes mellitus with diabetic peripheral angiopathy with gangrene; Z68.41 Body mass index [BMI] 40.0-44.9, adult; N17.9 Acute kidney failure, unspecified; S91.331A Puncture wound without foreign body, right foot, initial encounter; T87.81 Dehiscence of amputation stump; W45.0XXA Nail entering through skin, initial encounter; B96.7 Clostridium perfringens [C. perfringens] as the cause of diseases classified elsewhere; E11.65 Type 2 diabetes mellitus with hyperglycemia; E66.01 Morbid (severe) obesity due to excess calories; B96.89 Other specified bacterial agents as the cause of diseases classified elsewhere; E78.5 Hyperlipidemia, unspecified; Z87.891 Personal history of nicotine dependence; I10 Essential (primary) hypertension; G89.11 Acute pain due to trauma; G54.6 Phantom limb syndrome with pain; Z80.0 Family history of malignant neoplasm of digestive organs; Y83.8 Other surgical procedures as the cause of abnormal reaction of the patient, or of later complication, without mention of misadventure at the time of the procedure
CPT/HCPCS: 00400; 01470; 01482; 36415; 64445; 64447; 76942; 80048; 80053; 80061; 80202; 81001; 82550; 82962; 83036; 83605; 83735; 85025; 85027; 85379; 85610; 85652; 85730; 86140; 87040; 87070; 87075; 87077; 87186; 87205; 87635; 88304; 88305; 88307; 88311; 88331; 93005; 93010; 94799; 96361; 96365; 96375; 99140; C9290; C9803; J0131; J0330; J0360; J0692; J1170; J1650; J1815; J1885; J2020; J2185; J2250; J2270; J2405; J2543; J2550; J2704; J2795; J3010; J3370; J3490; J7030; J7050; J7060; L1830; S0028

== ENCOUNTER 2020-04-15 10:36 | Emergency (ER) | payer SELFPAY ==
[2020-04-15] MEDS ORDERED: HYDROCODONE/ACETAMINOPHEN 5-325 MG TABLET PO ONE ×2 (11:03→14:15)
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
[2020-04-15 11:35] LABS: ABSOLUTE BASOPHILS # (AUTO) 0.1 10^3/uL (0.0-0.2); ABSOLUTE MONOCYTES (AUTO) 1.1 10^3/uL (0.1-1.4); RED CELL DISTRIBUTION WIDTH 14.3 % (11.5-14.0); TOTAL CELLS COUNTED % (AUTO) 100 %
[2020-04-15 11:38] LABS: ABSOLUTE EOSINOPHILS # (AUTO) 0.4 10^3/uL (0.0-0.6); ABSOLUTE NEUT (AUTO) 6.3 10^3/uL (1.7-8.2); BASOPHILS % (AUTO) 0.5 % (0-2); HEMATOCRIT 30.6 % (37.9-51.0); HEMOGLOBIN 10.6 g/dL (13.5-17.0); LYMPHOCYTES % (AUTO) 20.6 % (13-45); MEAN CORPUSCULAR HGB CONC 34.7 g/dL (32.0-36.0); MEAN CORPUSCULAR VOLUME 89 fl (80-97); MONOCYTES % (AUTO) 11.2 % (3-13); PLATELET COUNT 468 10^3/uL (150-450); RED BLOOD COUNT 3.43 10^6/uL (4.35-5.55); SEGMENTED NEUTROPHILS % (AUTO) 63.7 % (42-78); WHITE BLOOD COUNT 9.9 10^3/uL (4.0-10.5)
[2020-04-15 11:51] LABS: ALKALINE PHOSPHATASE 94 U/L (38-126); ANION GAP 9 (5-19); ASPARTATE AMINO TRANSFERASE 25 U/L (17-59); BILIRUBIN,DIRECT 0.3 mg/dL (0.0-0.4); BILIRUBIN,TOTAL 0.5 mg/dL (0.2-1.3); BLOOD UREA NITROGEN 23 mg/dL (7-20); CARBON DIOXIDE 31 mmol/L (22-30); CHLORIDE 95 mmol/L (98-107); GLUCOSE 240 mg/dL (75-110); POTASSIUM 4.9 mmol/L (3.6-5.0); TOTAL PROTEIN 7.3 g/dL (6.3-8.2)
[2020-04-15 13:13] VITALS: BP 130/78
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
== END 2020-04-15 14:33 | disposition home or self-care (01) ==
LOC: ER 10:36
DX: M79.604 Pain in right leg (principal); Z89.511 Acquired absence of right leg below knee; E11.9 Type 2 diabetes mellitus without complications
CPT/HCPCS: 36415; 80053; 85025; 87040; 99284